=== PATIENT | female | born 1940 | race Caucasian/White ===

== ENCOUNTER → 2016-05-15 | Outpatient (CLI) | payer OTHER ==
[~2016-05-15] MED LIST: ACET-1256 PO; ADVIN25/60 INH; ALPR-385 PO; ANT125 PO; ANT25 PO; ASPEC81 PO; ATRINS INH; CALCTAB7 PO; CHOL2000 PO; CLC100 PO; DILT180C70 PO; DLC5 PO; DSY50 PO; IPRA1AER2 INH; KFL500 PO; LSX20 PO; LVQ500 PO; LXP10 PO; MAGN400T6 PO; MGCUDL400 PO; MULTTAB58 PO; OMEP20CA9 PO; ONDA4TAB9 PO; POTA20TA13 PO; PRD10 PO; PRD20 PO; TPRSR/25 PO; XNX5 PO; ZNTT/150 PO
[2016-05-15 12:45] LABS: ALT/SGPT 14 U/L (12-78); AST/SGOT 17 U/L (15-37); BLOOD UREA NITROGEN 6 mg/dl (7-18); BUN/CREATININE RATIO 6.8 (10-20); CALCIUM 8.6 mg/dl (8.5-10.1); CARBON DIOXIDE 30 mmol/L (21-32); CHLORIDE 98 mmol/L (98-107); CREATININE 0.82 mg/dl (0.60-1.20); GLUCOSE 86 mg/dl (70-99); POTASSIUM 4.5 mmol/L (3.5-5.1); SODIUM 135 mmol/L (136-145)
[2016-05-15 12:47] LABS: ALB/GLOB RATIO 1.1 (0.9-2); ALKALINE PHOSPHATASE 84 U/L (45-117)
== END | disposition home or self-care (01) ==
LOC: C.LABPVFM 09:59
PROVIDERS: ATTEND Nurse Practitioner
DX: M81.0 Age-related osteoporosis without current pathological fracture (principal); E55.9 Vitamin D deficiency, unspecified; E87.6 Hypokalemia

== ENCOUNTER 2016-05-22 06:20 | Inpatient (IN) | payer OTHER ==
[2016-05-22] VITALS (8 sets, daily range): BP systolic 120–166; BP diastolic 68–95; PULSE 89–120; TEMP 36.4–37; O2SAT 91–100; Ht 160 cm; Wt 53.3 kg
[~2016-05-22] VITALS: Ht 160 cm; Wt 53.3 kg
[~2016-05-22 06:20] MED LIST changes: -ACET-1256 PO; -ANT25 PO; -ASPEC81 PO; -ATRINS INH; -CALCTAB7 PO; -CHOL2000 PO; -CLC100 PO; -DLC5 PO; -DSY50 PO; -LVQ500 PO; -MGCUDL400 PO; -PRD10 PO; -PRD20 PO; -XNX5 PO; -ZNTT/150 PO
--- NOTE | 2016-05-22 06:37 | EMERGENCY ROOM VISIT NOTE ---
History Report prepared by Mary Ellen: Kar Fitzgerald Under the Supervision of: Dr. Umang Rudolph M.D. First contact with patient: 06:22 Chief Complaint: RESPIRATORY DISTRESS Stated Complaint: RESPIRATORY DIFFICULTY History of Present Illness The patient is a 75 year old female who presents to the Emergency Room via EMS with complaints of severe and persistent difficulty breathing starting yesterday. She has been sick for the past few days. As per EMS, she was hypoxic in the 80s on scene. The patient received Albuterol and CPAP with some relief. She reports a loss of appetite and a reduced fluid intake. She denies any fevers , chest pain, lower extremity swelling, or any other complaints. She denies any history of heart disease. Her has had flu-like symptoms for the past few days. She did not receive a flu shot this year. HPI is limited secondary to dyspnea. Source of History: patient, EMS History Limited By: dyspnea Onset: this morning Position: other (global) Symptom Intensity: severe Quality: other (difficulty breathing) Timing: other (persistent) Modifying Factors (Relieving): other (Albuterol and CPAP with some relief) Associated Symptoms: No chest pain, No fevers Review of Systems See HPI for pertinent positives & negatives. A total of 10 systems reviewed and were otherwise negative. Past Medical & Surgical Medical Problems: (1) Age related osteoporosis (2) Anemia (3) Anxiety disorder (4) CHF (congestive heart failure) (5) Compression fracture (6) Depression (7) Fall (8) Fall at home (9) Gastric ulcer (10) Glaucoma (11) Hypertension (12) Hypertension Nos (13) Osteoporosis (14) Pancreatitis (15) Parkinsonism (16) Peptic ulcer disease (17) Respiratory failure (18) Right hip pain (19) Slurred speech (20) Stomach ulcer Surgical Problems: (1) Hx of appendectomy (2) S/P colonoscopy (3) S/P endoscopy Family History Cancer Social History Smoking Status: Current Every Day Smoker Alcohol Use: none Drug Use: none Marital Status: Housing Status: lives with significant other Occupation Status: retired Current/Historical Medications Scheduled Cholecalciferol (Vitamin D3), 1 CAP PO DAILY Diltiazem Hcl (Diltiazem Hcl), 180 MG PO DAILY Escitalopram Oxalate (Escitalopram Oxalate), 10 MG PO DAILY Fluticasone Prop/Salmeterol (Advair Diskus 250/50 60 Dose), 1 PUFF INH BID Ipratropium-Albuterol (Combivent Respimat), 1 PUFF INH Q6H Magnesium Oxide (Mag-Ox), 400 MG PO BID Metoprolol Succinate (Metoprolol Succinate ER), 25 MG PO DAILY Multiple Vitamin (Multivitamin), 1 TAB PO QAM Omeprazole (Prilosec), 20 MG PO DAILY Potassium Chloride Microencaps (Potassium Chloride Er), 20 MEQ PO DAILY Ranitidine (Zantac), 150 MG PO DAILY Scheduled PRN Acetaminophen (Tylenol), 500 MG PO Q4 PRN for Pain Alprazolam (Xanax), 1 MG PO Q8 PRN for Anxiety Allergies Coded Allergies: Oxycodone (Verified Adverse Reaction, Intermediate, NAUSEA, 12/10/15) Codeine (Verified Adverse Reaction, Mild, NAUSEA, 12/10/15) Physical Exam Vital Signs Date Time Temp Pulse Resp B/P Pulse Ox O2 Delivery O2 Flow Rate FiO2 05/22/16 08:03 97 20 142/82 98 BiPAP 05/22/16 07:15 89 05/22/16 07:04 120 97 30 05/22/16 07:00 93 22 150/89 97 BiPAP 05/22/16 06:30 BiPAP 30 05/22/16 06:30 BiPAP 30 05/22/16 06:28 103 05/22/16 06:20 36.6 101 25 169/96 99 Room Air 05/22/16 06:20 98 Room Air Physical Exam GENERAL: Patient is elderly, acutely ill appearing and in no acute distress. HEENT: No acute trauma, normocephalic atraumatic, mucous membranes dry, no nasal congestion, no scleral icterus. NECK: No stridor, no adenopathy, no meningismus, trachea is midline. LUNGS: Dyspneic. Diffuse crackles and rhonchi in all lung reid. Mildly tachypneic. No wheezing. Using accessory muscles to breathe. HEART: Regular rate and rhythm. No murmurs, rubs, gallops appreciated. ABDOMEN: Soft, nontender, bowel sounds positive, no masses appreciated, no peritonitis. BACK: No midline tenderness, no CVA tenderness EXTREMITIES: Normal motion all extremities, no cyanosis, no edema. NEUROLOGIC: Alert and oriented, no acute motor or sensory deficits, no focal weakness, cranial nerves grossly intact. SKIN: Cracked, dry skin. No rash, no jaundice, no diaphoresis. Medical Decision & Procedures Laboratory Results 05/22/16 07:25 Red Blood Count 4.01, Mean Corpuscular Volume 83.0, Mean Corpuscular Hemoglobin 25.2, Mean Corpuscular Hemoglobin Concent 30.3, Mean Platelet Volume 9.4, Neutrophils (%) (Auto) 79.9, Lymphocytes (%) (Auto) 10.1, Monocytes (%) (Auto) 9.5, Eosinophils (%) (Auto) 0.0, Basophils (%) (Auto) 0.2, Neutrophils # (Auto) 12.76, Lymphocytes # (Auto) 1.61, Monocytes # (Auto) 1.52, Eosinophils # (Auto) 0.00, Basophils # (Auto) 0.03 05/22/16 07:15 Test 05/22/16 06:45 05/22/16 06:55 05/22/16 07:15 05/22/16 07:25 Influenza Type A Antigen Neg for Influ A (NEG) Influenza Type B Antigen Neg for Influ B (NEG) Arterial Blood pH 7.42 (7.35-7.45) Arterial Blood Partial Pressure CO2 48 mmHg (35-46) Arterial Blood Partial Pressure O2 165 mm/Hg (80-95) Arterial Blood HCO3 30 mmol/L (19-24) Arterial Blood Oxygen Saturation 99.1 % (90-95) Arterial Blood Base Excess 5.2 mEq/L (-9-1.8) Arterial Blood Gas Delivery 30% Lito Test POSITIVE (POS) Anion Gap 7.0 mmol/L (3-11) Est Creatinine Clear Calc Drug Dose 55.2 ml/min Estimated GFR () 92.5 Estimated GFR (Non- 79.8 BUN/Creatinine Ratio 10.9 (10-20) Calcium Level 9.0 mg/dl (8.5-10.1) Total Creatine Kinase 52 U/L (26-192) Creatine Kinase MB 1.4 ng/ml (0.5-3.6) Creatine Kinase MB Ratio 2.7 (0-3.0) Troponin I < 0.015 ng/ml (0-0.045) Pro-B-Type Natriuretic Peptide 1006 pg/ml (0-900) White Blood Count 15.96 K/uL (4.8-10.8) Red Blood Count 4.01 M/uL (4.2-5.4) Hemoglobin 10.1 g/dL (12.0-16.0) Hematocrit 33.3 % (37-47) Mean Corpuscular Volume 83.0 fL (80-100) Mean Corpuscular Hemoglobin 25.2 pg (25-34) Mean Corpuscular Hemoglobin Concent 30.3 g/dl (32-36) Platelet Count 261 K/uL (130-400) Mean Platelet Volume 9.4 fL (7.4-10.4) Neutrophils (%) (Auto) 79.9 % Lymphocytes (%) (Auto) 10.1 % Monocytes (%) (Auto) 9.5 % Eosinophils (%) (Auto) 0.0 % Basophils (%) (Auto) 0.2 % Neutrophils # (Auto) 12.76 K/uL (1.4-6.5) Lymphocytes # (Auto) 1.61 K/uL (1.2-3.4) Monocytes # (Auto) 1.52 K/uL (0.11-0.59) Eosinophils # (Auto) 0.00 K/uL (0-0.5) Basophils # (Auto) 0.03 K/uL (0-0.2) RDW Standard Deviation 47.4 fL (36.4-46.3) RDW Coefficient of Variation 15.6 % (11.5-14.5) Immature Granulocyte % (Auto) 0.3 % Immature Granulocyte # (Auto) 0.04 K/uL (0.00-0.02) Test 05/22/16 07:31 Bedside Lactic Acid Venous 0.74 mmol/L (0.90-1.70) Laboratory results as reviewed by me. Medications Administered Medications (Trade) Dose Ordered Sig/Laurel Route Start Time Stop Time Status Last Admin Dose Admin Sodium Chloride 1,000 ml @ 75 mls/hr [id number] STAT IV 05/22/16 07:05 05/22/16 20:24 05/22/16 07:09 75 MLS/HR Methylprednisolone Sodium Succinate/ Syringe (Solu-Medrol IV/ Syringe) 1.28 ml @ 1.5 mls/min TODAY@0737 IV 05/22/16 07:37 05/22/16 09:00 05/22/16 08:03 1.5 MLS/MIN Levofloxacin (Levaquin / D5W) 500 mg NOW ONCE IV 05/22/16 08:00 05/22/16 08:01 DC 05/22/16 07:58 500 MG ED Course 0622: The patient was evaluated in room B02. A complete history and physical exam was performed. 0632: I reevaluated the patient who is breathing much better on BiPAP. 0730: Upon reevaluation, the patient is resting comfortably. Discussed results and treatment plan with the patient. She verbalized understanding and agreement with the treatment plan. [facility] The patient will be evaluated for further management. Medical Decision Differential: Infectious, Reactive Airway Disease, Pneumonia, Pneumothorax, COPD , CHF, ACS, Pulmonary Embolism, MSK, GI, Dissection, amongst other etiologies entertained. 75 yr old female with history of emphysema arrives with worsening shortness of breath, weakness and lack of appetite over the last few days following recent illness of her . She is clinically dehydrated with diffuse rhonchi and crackles. No wheezing here but had neb en route prolonged. With emphysema history given solumedrol. No clear infectious on CXR and normal lactic acid and no fever, however she is a bit elevated WBC which I suspect is either infectious or possibly just dehydration. Will add on levaquin however given chronic lung disease. She is very dyspneic on NC but when switched to bipap vast improvement in symptoms. After hour on bipap ABG is looking quite good. She is far more comfortable and even able to fall asleep while on bipap (easily awakens). She is not septic appearing and labs look good other than wbc elevation. BNP is elevated but actually improved from before and no evidence overload on exam. Consults Time Called: [phone] Consulting Physician: Dr Montes Returned Call: [phone] I consulted with [facility]. Impression Primary Impression: Shortness of breath Additional Impression: Respiratory failure Critical Care I have personally spent greater than 35 minutes of critical care time in the direct management of this patient. This includes bedside care, interpretation of diagnostic studies, and testing, discussion with consultants, patient, and family members, and other required patient management activities. This 35 minutes is in excess of all separately billable procedures. Scribe Attestation The scribe's documentation has been prepared under my direction and personally reviewed by me in its entirety. I confirm that the note above accurately reflects all work, treatment, procedures, and medical decision making performed by me. Departure Information Referrals Pinky Aiken C.R.N.P (PCP) Patient Instructions Asthma - [facility], COPD - [facility], Croup - [facility], [facility] Problem Qualifiers Additional Impression: Respiratory failure Chronicity: acute Respiratory failure complication: hypoxia and hypercapnia Qualified Codes: J96.01 - Acute respiratory failure with hypoxia; J96.02 - Acute respiratory failure with hypercapnia
[2016-05-22] MEDS ORDERED: CHOL2000 PO (06:51)
[2016-05-22] MEDS ORDERED: ZNTT/150 PO (06:51)
[2016-05-22] MEDS ORDERED: ACET-1256 PO (06:51)
[2016-05-22] MEDS ORDERED: SODIUM CHLORIDE 0.9% 1000ML 1,000 ML IV STA (07:05)
--- NOTE | 2016-05-22 07:07 | DIAGNOSTIC IMAGING REPORT ---
SINGLE VIEW CHEST CLINICAL HISTORY: Atypical chest pain. FINDINGS: An AP, portable, upright chest radiograph is compared to study dated 12/10/2015 and correlated with chest CT dated 03/16/2015. The examination is significantly degraded by portable technique and patient rotation. The cardiomediastinal silhouette is unremarkable. There is atherosclerotic calcification of the thoracic aorta. There is advanced emphysema. Chronic interstitial thickening and nodularity as well as biapical scarring are similar to previous. No superimposed airspace consolidation or large pleural effusion is identified. No pneumothorax is seen. The skeletal structures are osteopenic. The bony thorax is grossly intact. IMPRESSION: Advanced emphysema with no acute cardiopulmonary abnormality. Electronically signed by: Dick Vargas M.D. 05/22/2016 7:06 AM Dictated Date/Time: 05/22/2016 7:05 AM
[2016-05-22 07:17] LABS: ARTERIAL BLD GAS O2 SATURATION 99.1 % (90-95); ARTERIAL BLOOD GAS BASE EXCESS 5.2 mEq/L (-9-1.8); ARTERIAL BLOOD GAS HCO3 30 mmol/L (19-24); ARTERIAL BLOOD GAS PO2 165 mm/Hg (80-95); ARTERIAL BLOOD GAS pH 7.42 (7.35-7.45)
[2016-05-22 07:18] LABS: ALLEN TEST POSITIVE (POS); O2 ADMINISTRATION 30%
[2016-05-22] MEDS ORDERED: METHYLPREDNISOLONE 125 MG VIAL IV STA (07:37)
[2016-05-22] MEDS ORDERED: METHYLPREDNISOLONE 80 MG in SYRINGE 0 ML IV SCH (07:37)
[2016-05-22 07:55] LABS: BLOOD UREA NITROGEN 8 mg/dl (7-18); BUN/CREATININE RATIO 10.9 (10-20); CARBON DIOXIDE 28 mmol/L (21-32); CHLORIDE 98 mmol/L (98-107); CREATININE 0.74 mg/dl (0.60-1.20); GLUCOSE 109 mg/dl (70-99); POTASSIUM 3.9 mmol/L (3.5-5.1); SODIUM 133 mmol/L (136-145)
[2016-05-22 08:00] LABS: CKMB/CK RATIO 2.7 (0-3.0)
[2016-05-22] MEDS ORDERED: LEVAQUIN 500MG / 100ML D5W IV ONE (08:00)
[2016-05-22 08:03] LABS: BASO % 0.2 %; BASO ABS # 0.03 K/uL (0-0.2); COMPLETE YES; HEMATOCRIT 33.3 % (37-47); IG% 0.3 %; LYMPH % 10.1 %; LYMPH ABS # 1.61 K/uL (1.2-3.4); MEAN CORPUSCULAR HEMOGLOBIN 25.2 pg (25-34); MEAN CORPUSCULAR HGB CONC 30.3 g/dl (32-36); MEAN PLATELET VOLUME 9.4 fL (7.4-10.4); MONO % 9.5 %; NEUT % 79.9 %; PLATELET COUNT 261 K/uL (130-400); RED BLOOD COUNT 4.01 M/uL (4.2-5.4); WHITE BLOOD COUNT 15.96 K/uL (4.8-10.8)
[2016-05-22] MEDS ORDERED: ALUMINUM/MAGNESIUM/SIMETH (MAALOX MAX) 30 ML UDC PO PRN (08:45)
[2016-05-22] MEDS ORDERED: ACETAMINOPHEN 325 MG TAB PO PRN (08:45)
[2016-05-22] MEDS ORDERED: ONDANSETRON INJ 2 MG/ML 2 ML VIAL IV PRN (08:45)
[2016-05-22] MEDS ORDERED: MAGNESIUM HYDROXIDE SUSP 30 ML UDC PO PRN (08:45)
[2016-05-22] MEDS ORDERED: POLYETHYLENE (MIRALAX) 17 GM PACK PO PRN (08:45)
[2016-05-22] MEDS ORDERED: ALPRAZOLAM 0.5 MG TAB PO PRN (08:45)
[2016-05-22 08:52] LABS: INFLUENZA A PCR Neg for Influ A (NEG); INFLUENZA B PCR Neg for Influ B (NEG)
--- NOTE | 2016-05-22 09:32 | History and Physical ---
History & Physical Date & Time of Service: May 22, 2016 at 09:04 Chief Complaint: Respiratory Difficulty Primary Care Physician: Pinky Aiken C.R.N.P History of Present Illness Source: patient, spouse ( at bedside), clinic records, hospital records This is a 75 y/o female with a history of COPD, HTN, anxiety and depression who presented to the ED on 05/22 with worsening shortness of breath and hypoxia. The patient states that she has been sick over the last week or two with a "head cold". She has been having a productive cough with thick, white sputum and some shortness of breath and wheezing that is worse at night. Per her , her chest has been "rattling" at night. She also complains of weakness, fatigue , and a decrease in appetite, with very little PO intake over the last few days. She reports some nausea yesterday without vomiting that resolved on its own. Yesterday, her shortness of breath started to become more severe throughout the day as well. This morning prior to arrival, the patient's shortness of breath continued to worsen. Upon arrival of EMS, the patient's O2 saturation was in the 80s on room air. The patient did use supplemental oxygen at home previously, but has not used any at all for the last 3 months. The patient was given albuterol and put on CPAP while en route to the ED, which did provide some relief. The patient denies fevers, chills, sweats, chest pain, palpitations, claudication, vomiting, abdominal pain, dysuria, hematuria, urinary retention, paralysis, numbness and tingling. Past Medical/Surgical History Medical Problems: COPD Age related osteoporosis Status: Chronic Anemia Status: Chronic Anxiety disorder Status: Chronic Compression fracture Status: Chronic Depression Status: Chronic Fall Status: Resolved Hypertension Status: Chronic Pancreatitis Status: Chronic Peptic ulcer disease Status: Chronic Respiratory failure Status: Chronic Right hip pain Status: Resolved Stomach ulcer Status: Chronic Surgical Problems: (1) Hx of appendectomy Status: Resolved (2) S/P colonoscopy Status: Resolved (3) S/P endoscopy Status: Resolved Family History Cancer (unknown type) MOTHER Heart disease FATHER Social History Smoking Status: Current Some Day Smoker (occasional cigarettes) Smokeless Tobacco Use: No Alcohol Use: none Drug Use: none Marital Status: Housing status: lives with significant other Occupational Status: retired Immunizations History of Influenza Vaccine: No History of Tetanus Vaccine?: Yes Tetanus Immunization Date: Oct 26, 2006 History of Pneumococcal: No History of Hepatitis B Vaccine: No Multi-Drug Resistant Organisms History of MDRO: No Allergies Coded Allergies: Oxycodone (Verified Adverse Reaction, Intermediate, NAUSEA, 12/10/15) Codeine (Verified Adverse Reaction, Mild, NAUSEA, 12/10/15) Home Medications Scheduled Cholecalciferol (Vitamin D3), 1 CAP PO DAILY Escitalopram Oxalate (Escitalopram Oxalate), 10 MG PO DAILY Fluticasone Prop/Salmeterol (Advair Diskus 250/50 60 Dose), 1 PUFF INH BID Ipratropium-Albuterol (Combivent Respimat), 1 PUFF INH Q6H Magnesium Oxide (Mag-Ox), 400 MG PO BID Metoprolol Succinate (Metoprolol Succinate ER), 25 MG PO DAILY Multiple Vitamin (Multivitamin), 1 TAB PO QAM Omeprazole (Prilosec), 20 MG PO DAILY Potassium Chloride Microencaps (Potassium Chloride Er), 20 MEQ PO DAILY Ranitidine (Zantac), 150 MG PO DAILY Scheduled PRN Acetaminophen (Tylenol), 500 MG PO Q4 PRN for Pain Alprazolam (Xanax), 1 MG PO Q8 PRN for Anxiety Review of Systems Constitutional: + fatigue, + weakness, No chills, No fever, No sweats Eyes: No diplopia, No eye pain, No worsening of vision ENT: No hearing loss, No sore throat, No trouble swallowing Respiratory: + cough, + dyspnea on exertion, + shortness of breath, + sputum ( thick white), + wheezing Cardiovascular: No PND, No chest pain, No claudication, No orthopnea, No palpitations Abdomen: + nausea, No pain, No vomiting Musculoskeletal: No calf pain, No joint pain, No muscle pain Genitourinary - Female: No dysuria, No hematuria, No urinary retention Neurologic: No numbness/tingling, No paralysis, No weakness Integumentary: No color change, No itch, No rash Physical Exam Vital Signs Date Time Temp Pulse Resp B/P Pulse Ox O2 Delivery O2 Flow Rate FiO2 05/22/16 09:00 92 20 143/72 98 BiPAP 05/22/16 08:04 98 BiPAP 30 05/22/16 08:03 97 20 142/82 98 BiPAP 05/22/16 07:15 89 05/22/16 07:04 120 97 30 05/22/16 07:00 93 22 150/89 97 BiPAP 05/22/16 06:30 BiPAP 30 05/22/16 06:30 BiPAP 30 05/22/16 06:28 103 05/22/16 06:20 36.6 101 25 169/96 99 Room Air 05/22/16 06:20 98 Room Air General Appearance: WD/WN, + mild distress (dyspneic ) Head: normocephalic, atraumatic Eyes: normal inspection, PERRL, EOMI ENT: normal ENT inspection, hearing grossly normal, + pertinent finding (on BIPAP, pharynx not examined) Neck: supple, no JVD, trachea midline Respiratory/Chest: + respiratory distress (mild, pt denies discomfort), + accessory muscle use, + rhonchi, + wheezing Cardiovascular: regular rate, rhythm, no gallop, no murmur, + tachycardia Abdomen/GI: normal bowel sounds, non tender, soft Extremities/Musculoskelatal: normal inspection, no calf tenderness, no pedal edema Neurologic/Psych: alert, normal mood/affect, oriented x 3 Skin: normal color, warm/dry, no rash Diagnostics Laboratory Results Results Past 24 Hours Test 05/22/16 06:45 05/22/16 06:55 05/22/16 07:15 05/22/16 07:25 Range/Units Influenza Type A (RT-PCR) Neg for Influ A NEG Influenza Type A Antigen Neg for Influ A NEG Influenza Type B Antigen Neg for Influ B NEG Influenza Type B (RT-PCR) Neg for Influ B NEG Arterial Blood pH 7.42 7.35-7.45 Arterial Blood Partial Pressure CO2 48 35-46 mmHg Arterial Blood Partial Pressure O2 165 80-95 mm/Hg Arterial Blood HCO3 30 19-24 mmol/L Arterial Blood Oxygen Saturation 99.1 90-95 % Arterial Blood Base Excess 5.2 -9-1.8 mEq/L Arterial Blood Gas Delivery 30% Lito Test POSITIVE POS Sodium Level 133 136-145 mmol/L Potassium Level 3.9 3.5-5.1 mmol/L Chloride Level 98 98-107 mmol/L Carbon Dioxide Level 28 21-32 mmol/L Anion Gap 7.0 3-11 mmol/L Blood Urea Nitrogen 8 7-18 mg/dl Creatinine 0.74 0.60-1.20 mg/dl Est Creatinine Clear Calc Drug Dose 55.2 ml/min Estimated GFR () 92.5 Estimated GFR (Non- 79.8 BUN/Creatinine Ratio 10.9 10-20 Random Glucose 109 70-99 mg/dl Calcium Level 9.0 8.5-10.1 mg/dl Total Creatine Kinase 52 26-192 U/L Creatine Kinase MB 1.4 0.5-3.6 ng/ml Creatine Kinase MB Ratio 2.7 0-3.0 Troponin I < 0.015 0-0.045 ng/ml Pro-B-Type Natriuretic Peptide 1006 0-900 pg/ml White Blood Count 15.96 4.8-10.8 K/uL Red Blood Count 4.01 4.2-5.4 M/uL Hemoglobin 10.1 12.0-16.0 g/dL Hematocrit 33.3 37-47 % Mean Corpuscular Volume 83.0 80-100 fL Mean Corpuscular Hemoglobin 25.2 25-34 pg Mean Corpuscular Hemoglobin Concent 30.3 32-36 g/dl Platelet Count 261 130-400 K/uL Mean Platelet Volume 9.4 7.4-10.4 fL Neutrophils (%) (Auto) 79.9 % Lymphocytes (%) (Auto) 10.1 % Monocytes (%) (Auto) 9.5 % Eosinophils (%) (Auto) 0.0 % Basophils (%) (Auto) 0.2 % Neutrophils # (Auto) 12.76 1.4-6.5 K/uL Lymphocytes # (Auto) 1.61 1.2-3.4 K/uL Monocytes # (Auto) 1.52 0.11-0.59 K/uL Eosinophils # (Auto) 0.00 0-0.5 K/uL Basophils # (Auto) 0.03 0-0.2 K/uL RDW Standard Deviation 47.4 36.4-46.3 fL RDW Coefficient of Variation 15.6 11.5-14.5 % Immature Granulocyte % (Auto) 0.3 % Immature Granulocyte # (Auto) 0.04 0.00-0.02 K/uL Test 05/22/16 07:31 Range/Units Bedside Lactic Acid Venous 0.74 0.90-1.70 mmol/L Microbiology Results 05/22/16 Blood Culture, Received Pending 05/22/16 Blood Culture, Received Pending Diagnostic Radiology Reviewed the following studies and agree with interpretation as follows: Patient Name: FACUNDO WILBURN Unit Number: [id number] Dictated: 05/22/16704 Transcribed: 05/22/16704 EV Printed Date/Time: [~ rep prt dt]/[~ rep prt tm] [~ rep ct labl] - [~ rep ct ivnm] [facility] [place] [place] [address] Dictated: 05/22/16704 Transcribed: 05/22/16704 EV Printed Date/Time: [~ rep prt dt]/[~ rep prt tm] [~ rep ct labl] - [~ rep ct ivnm] Patient: FACUNDO WILBURN Address1: [address] [place] [address] Rec: [id number] Address2: Acct ID: [id number] [facility] Zip: [place] [address] Date: 1940 Sex: F Room/Bed: Ref Phy: Pinky Aiken C.R.NKaylinP SC: REBECCA Att Phy: Report #: [id number] Naima Phy: Pinky Aiken C.R.NJaguar Test: CXR1P Admit Phy: Plastic Press Molder: [id number] Interpreting Phy: Dick Vargas M.D. Diagnosis: RESPIRATORY DIFFICULTY Ordering Phy: Umang Rudolph M.D. Service Date: 05/22/16 Admit Date: 05/22/16 MNE: [id number] CONF: DICTATED BY: Dick Vargas M.D.]] CC: Pinky Aiken C.R.N.P McKinley, Daniel F., M.D. Endcc: [~ rep ct add3]] SINGLE VIEW CHEST CLINICAL HISTORY: Atypical chest pain. FINDINGS: An AP, portable, upright chest radiograph is compared to study dated 12/10/2015 and correlated with chest CT dated 03/16/2015. The examination is significantly degraded by portable technique and patient rotation. The cardiomediastinal silhouette is unremarkable. There is atherosclerotic calcification of the thoracic aorta. There is advanced emphysema. Chronic interstitial thickening and nodularity as well as biapical scarring are similar to previous. No superimposed airspace consolidation or large pleural effusion is identified. No pneumothorax is seen. The skeletal structures are osteopenic. The bony thorax is grossly intact. IMPRESSION: Advanced emphysema with no acute cardiopulmonary abnormality. Electronically signed by: Dick Vargas M.D. 05/22/2016 7:06 AM Dictated Date/Time: 05/22/2016 7:05 AM The status of this report is Signed. Draft = Not yet reviewed or approved by Radiologist. Signed = Reviewed and approved by Radiologist. <AttendingPhy></AttendingPhy> <FamilyPhy>Pinky Aiken C.RKaylinN.P</FamilyPhy> < PrimaryPhy>Pinky Aiken C.R.N.P</PrimaryPhy> <UnitNumber>[id number]</ UnitNumber> <VisitNumber>[id number]</VisitNumber> <PatientName>FACUNDO WILBURN Marco </PatientName> <DateOfBirth>1940</DateOfBirth> <Location>C.EDB</Location> <ServiceDate>05/22/16</ServiceDate> <MNE>ESINDI</MNE> <OrderingPhy>Umang Rudolph M.D.</OrderingPhy> <OrderingPhyMNE>f rep ord dr miller</OrderingPhyMNE> < DictatingPhyMNE>f rep dict dr miller</DictatingPhyMNE> <CCListMNE>f rep ct paul</ CCListMNE> <AdmittingPhyMNE>f pt admit dr miller</AdmittingPhyMNE> <AttendingPhyMNE >f pt attend dr miller</AttendingPhyMNE> <ConsultingPhyMNE>f pt consult dr miller</ConsultingPhyMNE> <FamilyPhyMNE>f pt fam dr miller</FamilyPhyMNE> <OtherPhyMNE>f pt other dr miller</OtherPhyMNE> < PrimaryPhyMNE>f pt prim care dr miller</PrimaryPhyMNE> <ReferringPhyMNE>f pt referring dr miller</ReferringPhyMNE> EKG Reviewed EKG and agree with interpretation as follows: 103 bpm, sinus tachycardia Impression Assessment and Plan 75 y/o female with a history of COPD, HTN, anxiety and depression who presented to the ED on 05/22 with worsening shortness of breath and hypoxia. Recent illness with productive cough, SOB, and wheezing. No supplemental oxygen at home currently. O2 sat in 80s on room air at home. Pt tachycardic and tachypneic upon arrival. CXR shows severe emphysema but no acute disease. EKG sinus tach. ABG shows pH of 7.42, pCO2 of 48, pO2 of 165, HCO3 of 30. WBC elevated at 15.96. Received albuterol and CPAP in ambulance and Solu-Medrol 80 mg IV x 1 in ED. Acute on chronic respiratory failure secondary to COPD exacerbation -Admit to telemetry -Continue BIPAP -Solu-Medrol 60 mg IV q8h -Levaquin 500 mg IV q24h for possible acute bacterial bronchitis vs atypical pneumonia -Gentle IV hydration with NSS at 75 cc/hr. Sodium also slightly low at 133 upon admission -Duonebs QIDR and q2h prn SOB/wheezing HTN--stable -Continue metoprolol succinate 25 mg PO qam Anxiety and depression -Continue alprazolam 1 mg PO q8h prn anxiety and escitalopram 10 mg PO qd GI prophylaxis -Maalox Max 15 mL PO q4h prn dyspepsia -Milk of magnesia 30 mL PO q6h prn constipation -Miralax 17 gm PO qd prn constipation -Zofran 4 mg IV q6h prn nausea DVT prophylaxis -Enoxaparin 40 mg SC q24h -CONCEPCION linn and SCDs Code Status -Level V, DO NOT RESUSCITATE I agree with PA assessment and plan and have personally seen and examined pt myself. Pt presents with sob likely due to COPD exacerbation. 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 Y/N: Yes Risk Level: Moderate Given or contraindicated: Enoxaparin (Lovenox)SQ, Kumar Braden, SCD's
[2016-05-22 10:43] LABS: INR 1.1 (0.9-1.1); PARTIAL THROMBOPLASTIN RATIO 1.4; PROTHROMBIN TIME (PATIENT) 11.6 SECONDS (9.0-12.0)
[2016-05-22] MEDS: ALBUT/IPRATROP 3MG/0.5MG NEB 3 ML VIAL INH SCH ×2 (11:20→19:52)
[2016-05-22] MEDS: SODIUM CHLORIDE 0.9% 1000ML 1,000 ML IV SCH (12:22)
[2016-05-22] MEDS: ENOXAPARIN 40 MG/0.4 ML SYR SC SCH (13:19)
[2016-05-22] MEDS: METHYLPREDNISOLONE IV 60 MG in SYRINGE 0 ML IV SCH ×2 (13:20→19:50)
[2016-05-22] MEDS: FLUTICASONE/SALMETEROL 250/50 (ADVAIR) 14 PUFF/1 INHALER INH SCH (19:50)
[2016-05-23] VITALS (12 sets, daily range): BP systolic 111–154; BP diastolic 64–88; PULSE 81–118; TEMP 36.6–37; O2SAT 92–100
[2016-05-23] MEDS: SODIUM CHLORIDE 0.9% 1000ML 1,000 ML IV SCH (02:10)
[2016-05-23] MEDS: METHYLPREDNISOLONE IV 60 MG in SYRINGE 0 ML IV SCH ×2 (05:51→11:54)
[2016-05-23 06:06] LABS: COMPLETE YES; HEMATOCRIT 30.7 % (37-47); IG% 0.1 %; LYMPH % 9.1 %; LYMPH ABS # 0.77 K/uL (1.2-3.4); MEAN CELL VOLUME 84.3 fL (80-100); MEAN CORPUSCULAR HGB CONC 29.6 g/dl (32-36); MEAN PLATELET VOLUME 9.6 fL (7.4-10.4); MONO % 2.9 %; NEUT % 87.9 %; PLATELET COUNT 246 K/uL (130-400); RED BLOOD COUNT 3.64 M/uL (4.2-5.4); WHITE BLOOD COUNT 8.42 K/uL (4.8-10.8)
[2016-05-23 06:45] LABS: BUN/CREATININE RATIO 22.5 (10-20); CALCIUM 8.8 mg/dl (8.5-10.1); CREATININE 0.71 mg/dl (0.60-1.20); POTASSIUM 4.8 mmol/L (3.5-5.1)
[2016-05-23] MEDS: ALBUT/IPRATROP 3MG/0.5MG NEB 3 ML VIAL INH SCH ×2 (07:24→11:01)
[2016-05-23] MEDS ORDERED: LEVOFLOXACIN / D5W 500 MG in PREMIXED IN D5W 100 ML IV SCH (08:00)
[2016-05-23] MEDS: MAGNESIUM OXIDE 400 MG TAB PO SCH ×2 (09:01→23:04)
[2016-05-23] MEDS: FLUTICASONE/SALMETEROL 250/50 (ADVAIR) 14 PUFF/1 INHALER INH SCH ×2 (09:01→20:48)
[2016-05-23] MEDS: RANITIDINE HCL 150 MG TAB PO SCH (09:01)
[2016-05-23] MEDS: METOPROLOL SUCC 25MG EXT REL TAB PO SCH (09:01)
[2016-05-23] MEDS: ESCITALOPRAM OXALATE 10 MG TAB PO SCH (09:01)
[2016-05-23] MEDS: POTASSIUM CHLORIDE 20 MEQ TABCR PO SCH (09:02)
[2016-05-23] MEDS: PANTOprazole SOD 40 MG TAB PO SCH (09:03)
[2016-05-23] MEDS: ENOXAPARIN 40 MG/0.4 ML SYR SC SCH (13:26)
--- NOTE | 2016-05-23 14:08 | Progress Note ---
Subjective Date of Service: May 23, 2016. Subjective Pt evaluation today including: conversation w/ patient, conversation w/ family , physical exam, lab review, review of studies, review of inpatient medication list Pain: no pain PO Intake: adequate Voiding: no voiding problems breathing slightly better today, patient would like to go home discussed that she is still requiring oxygen and still appears short of breath discussed plan to move to the floor, perform 2 step tomorrow no chest pain, minimal cough, no abdominal pain, no edema Problem List Medical Problems: (1) Anemia Status: Chronic (2) Cachexia Status: Acute (3) Confusion Status: Acute (4) Dehydration Status: Acute (5) Dehydration Status: Acute (6) Dehydration Status: Acute (7) Fall Status: Acute (8) Generalized weakness Status: Acute (9) Generalized weakness Status: Acute (10) Loss of appetite Status: Acute (11) Multiple fractures of ribs of left side Status: Acute (12) Pleural effusion Status: Acute (13) Respiratory failure Status: Chronic (14) Shortness of breath Status: Acute (15) Urinary tract infection Status: Acute Review of Systems Constitutional: + fatigue, + weakness Respiratory: + cough, + dyspnea at rest, + dyspnea on exertion, + shortness of breath, + wheezing, No sputum All Other Systems: Reviewed and Negative Medications Current Inpatient Medications Medications (Trade) Dose Ordered Sig/[place] Route Start Time Stop Time Status Last Admin Dose Admin Enoxaparin Sodium (Lovenox Inj) 40 mg DAILY@1400 SC 05/22/16 14:00 06/21/16 13:59 05/23/16 13:26 40 MG Acetaminophen (Tylenol Tab) 650 mg Q4H PRN PO 05/22/16 08:45 06/21/16 08:44 Al Hydrox/Mg Hydrox/Simethicone (Maalox Max Susp) 15 ml Q4H PRN PO 05/22/16 08:45 06/21/16 08:44 Magnesium Hydroxide (Milk Of Magnesia Susp) 30 ml Q12H PRN PO 05/22/16 08:45 06/21/16 08:44 Ondansetron HCl (Zofran Inj) 4 mg Q6H PRN IV 05/22/16 08:45 06/21/16 08:44 Polyethylene (Miralax Powder Packet) 17 gm DAILY PRN PO 05/22/16 08:45 06/21/16 08:44 Alprazolam (Xanax Tab) 1 mg Q8H PRN PO 05/22/16 08:45 06/21/16 08:44 Escitalopram Oxalate (Lexapro Tab) 10 mg DAILY PO 05/23/16 09:00 06/22/16 08:59 05/23/16 09:01 10 MG Salmeterol Xinafoate/ Fluticasone (Advair Diskus 250/50 Inh) 1 puff BID INH 05/22/16 21:00 06/21/16 20:59 05/23/16 09:01 1 PUFF Magnesium Oxide (Mag-Ox Tab) 400 mg BID PO 05/23/16 09:00 06/22/16 08:59 05/23/16 09:01 400 MG Metoprolol Succinate (Toprol Xl Tab) 25 mg DAILY PO 05/23/16 09:00 06/22/16 08:59 05/23/16 09:01 25 MG Potassium Chloride (Klor-Con Tab) 20 meq DAILY PO 05/23/16 09:00 06/22/16 08:59 05/23/16 09:02 20 MEQ Ranitidine HCl (zANTac TAB) 150 mg DAILY PO 05/23/16 09:00 06/22/16 08:59 05/23/16 09:01 150 MG Pantoprazole Sodium (Protonix Tab) 40 mg QAM PO 05/23/16 09:00 06/22/16 08:59 05/23/16 09:03 40 MG Albuterol/ Ipratropium (Duoneb) 3 ml QIDR INH 05/22/16 12:00 06/21/16 11:59 05/23/16 11:01 3 ML Prednisone (PredniSONE TAB) 40 mg QAM PO 05/24/16 08:00 06/23/16 08:59 Levofloxacin (Levaquin Tab) 500 mg DAILY@11 PO 05/24/16 11:00 05/29/16 10:59 Objective Vital Signs Date Time Temp Pulse Resp B/P Pulse Ox O2 Delivery O2 Flow Rate FiO2 05/23/16 13:33 37.0 118 21 92 1.0 05/23/16 12:00 Nasal Cannula 1.0 05/23/16 12:00 37.0 118 21 139/79 92 Nasal Cannula 1.0 2/8/17 11:01 89 20 97 Room Air 05/23/16 08:11 89 22 97 Nasal Cannula 2.0 05/23/16 08:00 36.8 105 16 134/78 95 Nasal Cannula 2.0 05/23/16 08:00 95 Nasal Cannula 2.0 05/23/16 04:00 100 Nasal Cannula 3.0 05/23/16 04:00 81 15 154/88 100 Nasal Cannula 3.0 05/23/16 00:00 36.6 90 19 111/64 93 Nasal Cannula 3.0 05/23/16 00:00 93 Nasal Cannula 3.0 05/22/16 20:00 Nasal Cannula 05/22/16 20:00 36.4 92 19 135/79 91 Nasal Cannula 3.0 05/22/16 19:54 89 22 97 Nasal Cannula 2.0 05/22/16 15:30 36.5 115 21 120/82 94 Nasal Cannula 2.0 05/22/16 15:30 Nasal Cannula 2.0 Physical Exam General Appearance: no apparent distress, + thin Eyes: normal inspection, EOMI, sclerae normal ENT: normal ENT inspection, hearing grossly normal, pharynx normal Neck: supple, no adenopathy, no JVD, trachea midline Respiratory/Chest: chest non-tender, no respiratory distress, no accessory muscle use, + wheezing (faint end exhalation) Cardiovascular: no edema, no gallop, no JVD, no murmur, + tachycardia Abdomen: normal bowel sounds, non tender, soft, no organomegaly Extremities: normal range of motion, non-tender, normal inspection, no pedal edema, no calf tenderness, pelvis stable 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: 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, no motor/sensory deficits, alert, normal mood/affect, oriented x 3 Skin: normal color, warm/dry, no rash Lymphatic: no adenopathy Laboratory Results Last 24 Hours Test 05/23/16 05:34 05/23/16 05:37 Sodium Level 139 mmol/L Potassium Level 4.8 mmol/L Chloride Level 103 mmol/L Carbon Dioxide Level 29 mmol/L Anion Gap 7.0 mmol/L Blood Urea Nitrogen 16 mg/dl Creatinine 0.71 mg/dl Est Creatinine Clear Calc Drug Dose 57.5 ml/min Estimated GFR () 97.3 Estimated GFR (Non- 83.9 BUN/Creatinine Ratio 22.5 Random Glucose 149 mg/dl Calcium Level 8.8 mg/dl White Blood Count 8.42 K/uL Red Blood Count 3.64 M/uL Hemoglobin 9.1 g/dL Hematocrit 30.7 % Mean Corpuscular Volume 84.3 fL Mean Corpuscular Hemoglobin 25.0 pg Mean Corpuscular Hemoglobin Concent 29.6 g/dl Platelet Count 246 K/uL Mean Platelet Volume 9.6 fL Neutrophils (%) (Auto) 87.9 % Lymphocytes (%) (Auto) 9.1 % Monocytes (%) (Auto) 2.9 % Eosinophils (%) (Auto) 0.0 % Basophils (%) (Auto) 0.0 % Neutrophils # (Auto) 7.40 K/uL Lymphocytes # (Auto) 0.77 K/uL Monocytes # (Auto) 0.24 K/uL Eosinophils # (Auto) 0.00 K/uL Basophils # (Auto) 0.00 K/uL RDW Standard Deviation 48.1 fL RDW Coefficient of Variation 15.6 % Immature Granulocyte % (Auto) 0.1 % Immature Granulocyte # (Auto) 0.01 K/uL Assessment and Plan 75 y/o female with a history of COPD, HTN, anxiety and depression who presented to the ED on 05/22 with worsening shortness of breath and hypoxia. Recent illness with productive cough, SOB, and wheezing. No supplemental oxygen at home currently. O2 sat in 80s on room air at home. Pt tachycardic and tachypneic upon arrival. CXR shows severe emphysema but no acute disease. EKG sinus tach. ABG shows pH of 7.42, pCO2 of 48, pO2 of 165, HCO3 of 30. WBC elevated at 15.96. Received albuterol and CPAP in ambulance and Solu-Medrol 80 mg IV x 1 in ED. Acute on chronic respiratory failure secondary to COPD exacerbation breathing better today but still dyspnea at rest, less coughing, less wheezing transition to Prednisone today and make Levaquin 500mg PO daily change albuterol to levalbuterol due to continuous tachycardia, scheduled q6 still requiring supplemental oxygen despite numerous attempts to wean likely to early, will perform 2 step tomorrow HTN--stable -Continue metoprolol succinate 25 mg PO qam Anxiety and depression -Continue alprazolam 1 mg PO q8h prn anxiety and escitalopram 10 mg PO qd GI prophylaxis -Maalox Max 15 mL PO q4h prn dyspepsia -Milk of magnesia 30 mL PO q6h prn constipation -Miralax 17 gm PO qd prn constipation -Zofran 4 mg IV q6h prn nausea DVT prophylaxis -Enoxaparin 40 mg SC q24h -CONCEPCION linn and SCDs Code Status -Level V, DO NOT RESUSCITATE Plan: transfer to medical floor today, hopeful for discharge to home tomorrow, get 2 step and therapy evaluations
[2016-05-23] MEDS ORDERED: LEVALBUTEROL/IPRATROPIUM NEB INH SCH (15:00)
[2016-05-23] MEDS: IPRATROPIUM BROMIDE NEB SOLN 0.02% 2.5 ML VIAL INH SCH ×2 (15:00→19:23)
[2016-05-23] MEDS: LEVALBUTEROL 1.25MG/0.5ML NEB INH SCH ×2 (15:00→19:23)
[2016-05-24 01:44] VITALS: PULSE 77; O2SAT 98
[2016-05-24] MEDS: LEVALBUTEROL 1.25MG/0.5ML NEB INH SCH ×2 (01:44→07:45)
[2016-05-24] MEDS: IPRATROPIUM BROMIDE NEB SOLN 0.02% 2.5 ML VIAL INH SCH ×2 (01:44→07:45)
[2016-05-24 06:38] LABS: HEMATOCRIT 29.4 % (37-47); IG% 0.3 %; LYMPH % 10.1 %; LYMPH ABS # 1.03 K/uL (1.2-3.4); MEAN CELL VOLUME 83.8 fL (80-100); MEAN CORPUSCULAR HEMOGLOBIN 25.4 pg (25-34); MEAN CORPUSCULAR HGB CONC 30.3 g/dl (32-36); MEAN PLATELET VOLUME 9.1 fL (7.4-10.4); MONO % 6.9 %; NEUT % 82.7 %; PLATELET COUNT 282 K/uL (130-400); RED BLOOD COUNT 3.51 M/uL (4.2-5.4); WHITE BLOOD COUNT 10.21 K/uL (4.8-10.8)
[2016-05-24 07:00] LABS: COMPLETE YES; HYPOCHROMIA PRESENT; POLYCHROMASIA 1+
[2016-05-24 07:03] LABS: BUN/CREATININE RATIO 27.6 (10-20); CALCIUM 8.6 mg/dl (8.5-10.1); CREATININE 0.71 mg/dl (0.60-1.20); POTASSIUM 4.7 mmol/L (3.5-5.1)
[2016-05-24 07:18] VITALS: BP 154/79; PULSE 83; TEMP 36.8; O2SAT 97
[2016-05-24 08:03] VITALS: PULSE 79; O2SAT 98
[2016-05-24] MEDS: FLUTICASONE/SALMETEROL 250/50 (ADVAIR) 14 PUFF/1 INHALER INH SCH (09:23)
[2016-05-24] MEDS: MAGNESIUM OXIDE 400 MG TAB PO SCH (09:24)
[2016-05-24] MEDS: ESCITALOPRAM OXALATE 10 MG TAB PO SCH (09:51)
[2016-05-24] MEDS: METOPROLOL SUCC 25MG EXT REL TAB PO SCH (09:52)
[2016-05-24] MEDS: POTASSIUM CHLORIDE 20 MEQ TABCR PO SCH (09:52)
[2016-05-24] MEDS: RANITIDINE HCL 150 MG TAB PO SCH (09:53)
[2016-05-24] MEDS: PANTOprazole SOD 40 MG TAB PO SCH (09:53)
[2016-05-24 10:46] VITALS: O2SAT 95
[2016-05-24] MEDS ORDERED: LEVOFLOXACIN 500 MG TAB PO SCH (11:00)
[2016-05-24] MEDS ORDERED: LVQ500 PO (12:13)
[2016-05-24] MEDS ORDERED: PRD20 PO (12:13)
--- NOTE | 2016-05-24 12:18 | Discharge Instructions ---
Discharge Instructions Admission Reason for Admission: Respiratory Failure, COPD exacerbation Discharge Discharge Diagnosis / Problem: COPD exacerbation, acute hypoxic respiratory failure Discharge Goals Goal(s): Improve function, Improve disease control Activity Recommendations Activity Limitations: resume your previous activity Lifting Limitations: none Exercise/Sports Limitations: as tolerated Shower/Bathe: no limitations . Instructions / Follow-Up Instructions / Follow-Up Medications: - LEVAQUIN: 500mg daily, first dose tomorrow AM, take for 2 days - PREDNISONE: starting tomorrow, 40mg (2 tablets) in the morning x 1 day then 30mg (1 1/2 tablets) daily x 3 days then 20mg daily x 3 days then 10mg daily x 3 days then stop COPD exacerbation: should continue to improve over the next week, take it easy over the weekend, get rest, stay well hydrated and nourished Smoking: you need to stop smoking, will only continue to get exacerbations of COPD Oxygen: you are to use 2L any time you exert yourself, including walking around the house FOLLOW UP - call for follow up with Sabi Prather in the next week Current Hospital Diet Patient's current hospital diet: AHA Diet (Heart Healthy) Discharge Diet Recommended Diet: AHA Diet (Heart Healthy) Pending Studies Studies pending at discharge: no Laboratory Results Last Resulted CBC 05/24/16 06:12 Red Blood Count 3.51, Mean Corpuscular Volume 83.8, Mean Corpuscular Hemoglobin 25.4, Mean Corpuscular Hemoglobin Concent 30.3, Mean Platelet Volume 9.1, Neutrophils (%) (Auto) 82.7, Lymphocytes (%) (Auto) 10.1, Monocytes (%) (Auto) 6.9, Eosinophils (%) (Auto) 0.0, Basophils (%) (Auto) 0.0, Neutrophils # (Auto) 8.45, Lymphocytes # (Auto) 1.03, Monocytes # (Auto) 0.70, Eosinophils # (Auto) 0.00, Basophils # (Auto) 0.00 Last Resulted BMP 05/24/16 06:12 Medical Emergencies . Who to Call and When: Medical Emergencies: If at any time you feel your situation is an emergency, please call 911 immediately. . Non-Emergent Contact Non-Emergency issues call your: Primary Care Provider Call Non-Emergent contact if: you have a fever, you have any medication questions . . "Provider Documentation" section prepared by Robert Kenney. VTE Core Measure Inpt VTE Proph given/why not?: Enoxaparin (Lovenox)SQ
[2016-05-24 12:55] VITALS: BP 154/79; PULSE 79; TEMP 36.8; O2SAT 95
--- NOTE | 2016-05-25 09:10 | Discharge Summary ---
Discharge Summary Admission Date: May 22, 2016 at 09:03 Discharge Date: May 24, 2016 Discharge Disposition: Home Principal Diagnosis: COPD exacerbation Problems/Secondary Diagnoses: Acute hypoxic respiratory failure Tobacco abuse Immunizations: Have You Had Influenza Vaccine: No History of Tetanus Vaccine?: Yes Tetanus Immunization Date: Oct 26, 2006 History of Pneumococcal: No History of Hepatitis B Vaccine: No Procedures: 2 step - requires 2L on exertion Consultations: none Medication Reconciliation New Medications: Levofloxacin (Levofloxacin) 500 Mg Tab 500 MG PO DAILY@11 for 2 Days, #2 TAB 0 Refills Prednisone (Prednisone) 20 Mg Tab 40 MG PO QAM for 10 Days, #11 TAB 0 Refills Taper: 40mg x 1 day then 30mg x 3 days then 20mg x 3 days then 10mg x 3 days then stop Continued Medications: Acetaminophen (Tylenol) 500 Mg Tab 500 MG PO Q4 PRN for Pain, TAB Alprazolam (Xanax) 1 Mg Tab 1 MG PO Q8 PRN for Anxiety Cholecalciferol (Vitamin D3) 2,000 Unit Cap 1 CAP PO DAILY for 90 Days, #90 CAP 3 Refills Escitalopram Oxalate (Escitalopram Oxalate) 10 Mg Tab 10 MG PO DAILY Fluticasone Prop/Salmeterol (Advair Diskus 250/50 60 Dose) 1 Ea Aerp 1 PUFF INH BID, #1 INHALER 2 Refills Ipratropium-Albuterol (Combivent Respimat) 1 Aer Aer 1 PUFF INH Q6H, #1 INH 2 Refills Magnesium Oxide (Mag-Ox) 400 Mg Tab 400 MG PO BID, TAB Metoprolol Succinate (Metoprolol Succinate ER) 25 Mg Tabcr 25 MG PO DAILY Multiple Vitamin (Multivitamin) 1 Tab Tab 1 TAB PO QAM, TAB Omeprazole (Prilosec) 20 Mg Cap 20 MG PO DAILY Potassium Chloride Microencaps (Potassium Chloride Er) 20 Meq Tab 20 MEQ PO DAILY Ranitidine (Zantac) 150 Mg Tab 150 MG PO DAILY, TAB Discharge Exam Patient feeling much better breathing, less cough, no sputum production. Eating well. Normal energy level. Did 2 step and requires oxygen on exertion. Feels ready to go home. Review of Systems: Constitutional: No chills, No fatigue, No fever, No problem reported, No sweats, No weakness, No weight loss Eyes: No diplopia, No discharge, No eye pain, No problem reported, No redness, No worsening of vision ENT: No dental problems, No hearing loss, No nasal symptoms, No problem reported, No sore throat, No tinnitus, No trouble swallowing, No unusual epistaxis Respiratory: + cough, + dyspnea on exertion, No dyspnea at rest, No hemoptysis, No shortness of breath, No sputum, No wheezing Cardiovascular: No PND, No chest pain, No claudication, No edema, No orthopnea, No palpitations, No problem reported Abdomen: No GI bleeding, No constipation, No diarrhea, No nausea, No pain, No problem reported, No vomiting Musculoskeletal: No calf pain, No joint pain, No muscle pain, No problem reported, No swelling Genitourinary - Female: No dysuria, No hematuria, No urinary frequency, No urinary incontinence, No urinary retention, No urinary urgency Neurologic: No balance problems, No memory loss, No numbness/tingling, No paralysis, No problem reported, No vertigo, No weakness Psychiatric: No anhedonism, No anxiety, No depression symptoms, No insomnia , No problem reported, No substance abuse Endocrine: No excessive thirst, No excessive urination, No fatigue, No problem reported Hematologic / Lymphatic: No abnormal bleeding/bruising, No clotting problems , No night sweats, No problem reported, No swollen lymph nodes Integumentary: No bleeding, No color change, No itch, No new/changing skin lesions, No problem reported, No rash Physical Exam: General Appearance: no apparent distress, + thin Eyes: normal inspection, EOMI, sclerae normal ENT: normal ENT inspection, hearing grossly normal, pharynx normal Neck: supple, no adenopathy, no JVD, trachea midline Respiratory/Chest: chest non-tender, lungs clear, no respiratory distress, no accessory muscle use, + decreased breath sounds (no wheezing) Cardiovascular: regular rate, rhythm, no edema, no gallop, no JVD, no murmur , normal peripheral pulses Abdomen / GI: normal bowel sounds, non tender, soft, no organomegaly Extremities: normal inspection, no calf tenderness, normal capillary refill , no pedal edema, normal range of motion 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 Recent illness with productive cough, SOB, and wheezing. No supplemental oxygen at home currently. O2 sat in 80s on room air at home. Pt tachycardic and tachypneic upon arrival. CXR shows severe emphysema but no acute disease. EKG sinus tach. ABG shows pH of 7.42, pCO2 of 48, pO2 of 165, HCO3 of 30. WBC elevated at 15.96. Received albuterol and CPAP in ambulance and Solu-Medrol 80 mg IV x 1 in ED. Acute on chronic respiratory failure secondary to COPD exacerbation breathing much better today, no dyspnea at rest, no wheezing, still has GRIMES plan to d/c home, Levaquin 500mg daily x 2 more days Prednisone, 40mg daily with a scheduled taper over the next 10 days continue maintenance inhalers and albuterol rescue inhaler 2 step today showed no oxygen at rest but requires 2L on exertion, set up for home Oxygen HTN--stable -Continue metoprolol succinate 25 mg PO qam Anxiety and depression -Continue alprazolam 1 mg PO q8h prn anxiety and escitalopram 10 mg PO qd GI prophylaxis -Maalox Max 15 mL PO q4h prn dyspepsia -Milk of magnesia 30 mL PO q6h prn constipation -Miralax 17 gm PO qd prn constipation -Zofran 4 mg IV q6h prn nausea DVT prophylaxis -Enoxaparin 40 mg SC q24h -CONCEPCION linn and SCDs Code Status -Level V, DO NOT RESUSCITATE Plan: d/c home on supplemental oxygen, Levaquin and Prednisone taper, follow up with Sabi Prather Total Time Spent: Greater than 30 minutes This includes examination of the patient, discharge planning, medication reconciliation, and communication with other providers. Discharge Instructions Please refer to the electronic Patient Visit Report (Discharge Instructions) for additional information. Follow-Up [facility] in one week Additional Copies To Pinky Aiken C.R.N.P
[2016-07-31] MEDS ORDERED: CLC100 PO (13:00)
[2016-07-31] MEDS ORDERED: DSY50 PO (13:00)
[2016-07-31] MEDS ORDERED: ASPEC81 PO (13:00)
[2016-07-31] MEDS ORDERED: DLC5 PO (13:00)
[2016-07-31] MEDS ORDERED: CALCTAB7 PO (13:00)
[2016-07-31] MEDS ORDERED: XNX5 PO (13:00)
[2016-07-31] MEDS ORDERED: PRD10 PO (13:00)
[2016-07-31] MEDS ORDERED: ANT25 PO (13:00)
[2016-07-31] MEDS ORDERED: ATRINS INH (13:00)
[2016-07-31] MEDS ORDERED: MGCUDL400 PO (13:00)
== END 2016-05-24 14:47 | disposition home or self-care (01) | DRG 190 ==
LOC: ENRESERVTM → ENRESERVDT → EDBD 06:20 → C.EDB 06:21 → C.MSICU 09:03 → C.MS4W 05-23 14:01
PROVIDERS: ADMIT Hospitalist; ATTEND Internal Medicine
DX: J44.1 Chronic obstructive pulmonary disease with (acute) exacerbation (principal); J96.21 Acute and chronic respiratory failure with hypoxia; J96.02 Acute respiratory failure with hypercapnia; K86.1 Other chronic pancreatitis; F32.9 Major depressive disorder, single episode, unspecified; D64.9 Anemia, unspecified; F41.9 Anxiety disorder, unspecified; I10 Essential (primary) hypertension; K27.9 Peptic ulcer, site unspecified, unspecified as acute or chronic, without hemorrhage or perforation; M81.0 Age-related osteoporosis without current pathological fracture; F17.210 Nicotine dependence, cigarettes, uncomplicated; H40.9 Unspecified glaucoma; G20 Parkinson's disease; K59.00 Constipation, unspecified; Z66 Do not resuscitate; Z99.81 Dependence on supplemental oxygen; Z86.79 Personal history of other diseases of the circulatory system; Z79.51 Long term (current) use of inhaled steroids; Z79.899 Other long term (current) drug therapy

== ENCOUNTER 2016-07-23 05:29 | Inpatient (IN) | payer OTHER ==
[2016-07-23] VITALS (7 sets, daily range): BP systolic 118–156; BP diastolic 69–88; PULSE 88–104; TEMP 36.6–37.3; O2SAT 92–99; Ht 167.6 cm; Wt 47.8 kg
[~2016-07-23] VITALS: Ht 167.6 cm; Wt 47.8 kg
[~2016-07-23 05:29] MED LIST changes: +ACET-1256 PO; -ANT125 PO; +CHOL2000 PO; -DILT180C70 PO; -KFL500 PO; -LSX20 PO; +LVQ500 PO; -ONDA4TAB9 PO; +PRD20 PO; +ZNTT/150 PO
[2016-07-23] MEDS ORDERED: SODIUM CHLORIDE 0.9% 1000ML 1,000 ML IV SCH (05:36)
--- NOTE | 2016-07-23 05:51 | EMERGENCY ROOM VISIT NOTE ---
History Report prepared by Isiahibceleste: Jas Min Under the Supervision of: Roula EmanuelO. First contact with patient: 05:32 Chief Complaint: FALL Stated Complaint: FALL/ NEURO SYMPTOMS History of Present Illness The patient is a 76 year old female with a history of COPD who presents to the Emergency Room with complaints of persistent stroke-like symptoms that started three days ago. The patient appears to have left-sided weakness, per EMS. The patient tripped and fell when she was using her walker this morning, but she did not hit her head. She denies any pain. As per her , the patient's speech has been abnormal for three days. She has also been more short of breath than baseline and has not been eating or drinking well. The patient has complained to her of nausea but has not vomited. He is not aware of any loss of her bladder control. She does not have a stroke history. Source of History: patient, spouse/significant other, EMS Onset: three days ago Position: other (neuro) Quality: other (stroke-like symptoms) Timing: other (persistent) Associated Symptoms: + SOB, + nausea, + weakness, No vomiting Review of Systems See HPI for pertinent positives & negatives. A total of 10 systems reviewed and were otherwise negative. Past Medical & Surgical Medical Problems: (1) Age related osteoporosis (2) Anemia (3) Anxiety disorder (4) CHF (congestive heart failure) (5) Compression fracture (6) Depression (7) Fall (8) Fall at home (9) Gastric ulcer (10) Glaucoma (11) Hypertension (12) Hypertension Nos (13) Osteoporosis (14) Pancreatitis (15) Parkinsonism (16) Peptic ulcer disease (17) Respiratory failure (18) Right hip pain (19) Slurred speech (20) Stomach ulcer Surgical Problems: (1) Hx of appendectomy (2) S/P colonoscopy (3) S/P endoscopy Family History Cancer (unknown type) MOTHER Heart disease FATHER Social History Smoking Status: Current Some Day Smoker Alcohol Use: none Drug Use: none Marital Status: Housing Status: lives with significant other Occupation Status: retired Current/Historical Medications Scheduled Cholecalciferol (Vitamin D3), 1 CAP PO DAILY Escitalopram Oxalate (Escitalopram Oxalate), 10 MG PO DAILY Fluticasone Prop/Salmeterol (Advair Diskus 250/50 60 Dose), 1 PUFF INH BID Ipratropium-Albuterol (Combivent Respimat), 1 PUFF INH Q6H Magnesium Oxide (Mag-Ox), 400 MG PO BID Metoprolol Succinate (Metoprolol Succinate ER), 25 MG PO DAILY Multiple Vitamin (Multivitamin), 1 TAB PO QAM Omeprazole (Prilosec), 20 MG PO DAILY Potassium Chloride Microencaps (Potassium Chloride Er), 20 MEQ PO DAILY Ranitidine (Zantac), 150 MG PO DAILY Scheduled PRN Acetaminophen (Tylenol), 500 MG PO Q4 PRN for Pain Alprazolam (Xanax), 1 MG PO Q8 PRN for Anxiety Allergies Coded Allergies: Oxycodone (Verified Adverse Reaction, Intermediate, NAUSEA, 12/10/15) Codeine (Verified Adverse Reaction, Mild, NAUSEA, 12/10/15) Physical Exam Vital Signs Date Time Temp Pulse Resp B/P Pulse Ox O2 Delivery O2 Flow Rate FiO2 07/23/16 06:24 100 24 177/91 100 Nasal Cannula 4.0 07/23/16 05:47 Nasal Cannula 07/23/16 05:46 95 Nasal Cannula 4.0 07/23/16 05:37 107 07/23/16 05:37 36.9 106 18 172/90 85 Nasal Cannula 2.0 Physical Exam General: Appears to be in mild respiratory distress. HEENT: Head - normocephalic and atraumatic. Pupils are equal, round, and reactive to light. Extraocular eye muscles are intact and sclera are anicteric. Ears - bilaterally patent canals with noninjected tympanic membranes and no evidence of hemotympanum. Nose - moist nasal mucosa without discharge. Mouth - extremely dry buccal mucosa. Oropharynx is nonerythematous and there is no tonsillar exudate or edema noted. Neck: Supple; no JVD, nuchal rigidity, cervical lymphadenopathy, or auscultated bruits. Heart: Regular rate and rhythm. There is a normal S1 and S2 with no murmurs, clicks, or gallops appreciated. Lungs: Diminished breath sounds in all lung reid with rales throughout. Abdomen: Abdomen is protuberant. Soft, completely nontender, with good bowel sounds. There are no palpable pulsatile masses or hepatosplenomegaly. There is no guarding, rigidity, or rebound noted. Extremities: No evidence of cyanosis, clubbing, or edema. There are easily palpable peripheral pulses. Neuro: The patient has slurred speech. The patient is awake and alert, oriented to day, time, and place. Muscle strength 4/5 in left arm and leg, 5/5 on the right. Slurred speech. There are no cerebellar signs. Medical Decision & Procedures ER Provider Diagnostic Interpretation: Radiology results as stated below per my review and the radiologist's interpretation: CT HEAD: No evidence of acute infarct, hemorrhage, mass or edema. Chronic small vessel ischemic disease and senescent changes. Mild mucosal thickening in the paranasal sinuses. No acute osseous abnormality. Radiologist: Luke Gilmore MD. X-ray results as stated below per interpretation by me. CHEST ONE VIEW PORTABLE: Evidence of CHF with a right pleural effusion. Laboratory Results 07/23/16 04:50 Red Blood Count 3.89, Mean Corpuscular Volume 81.0, Mean Corpuscular Hemoglobin 25.2, Mean Corpuscular Hemoglobin Concent 31.1, Mean Platelet Volume 8.8, Neutrophils (%) (Auto) 89.5, Lymphocytes (%) (Auto) 4.9, Monocytes (%) (Auto) 5.1, Eosinophils (%) (Auto) 0.0, Basophils (%) (Auto) 0.2, Neutrophils # (Auto) 12.02, Lymphocytes # (Auto) 0.66, Monocytes # (Auto) 0.69, Eosinophils # (Auto) 0.00, Basophils # (Auto) 0.03 07/23/16 04:50 Test 07/23/16 04:50 07/23/16 05:40 07/23/16 06:03 White Blood Count 13.44 K/uL (4.8-10.8) Red Blood Count 3.89 M/uL (4.2-5.4) Hemoglobin 9.8 g/dL (12.0-16.0) Hematocrit 31.5 % (37-47) Mean Corpuscular Volume 81.0 fL (80-100) Mean Corpuscular Hemoglobin 25.2 pg (25-34) Mean Corpuscular Hemoglobin Concent 31.1 g/dl (32-36) Platelet Count 288 K/uL (130-400) Mean Platelet Volume 8.8 fL (7.4-10.4) Neutrophils (%) (Auto) 89.5 % Lymphocytes (%) (Auto) 4.9 % Monocytes (%) (Auto) 5.1 % Eosinophils (%) (Auto) 0.0 % Basophils (%) (Auto) 0.2 % Neutrophils # (Auto) 12.02 K/uL (1.4-6.5) Lymphocytes # (Auto) 0.66 K/uL (1.2-3.4) Monocytes # (Auto) 0.69 K/uL (0.11-0.59) Eosinophils # (Auto) 0.00 K/uL (0-0.5) Basophils # (Auto) 0.03 K/uL (0-0.2) RDW Standard Deviation 54.3 fL (36.4-46.3) RDW Coefficient of Variation 18.2 % (11.5-14.5) Immature Granulocyte % (Auto) 0.3 % Immature Granulocyte # (Auto) 0.04 K/uL (0.00-0.02) Prothrombin Time 12.5 SECONDS (9.0-12.0) Prothromb Time International Ratio 1.2 (0.9-1.1) Activated Partial Thromboplast Time 33.5 SECONDS (21.0-31.0) Partial Thromboplastin Ratio 1.3 Anion Gap 6.0 mmol/L (3-11) Est Creatinine Clear Calc Drug Dose 49.3 ml/min Estimated GFR () 84.9 Estimated GFR (Non- 73.2 BUN/Creatinine Ratio 9.7 (10-20) Calcium Level 8.3 mg/dl (8.5-10.1) Total Creatine Kinase 87 U/L (26-192) Creatine Kinase MB 1.6 ng/ml (0.5-3.6) Creatine Kinase MB Ratio 1.8 (0-3.0) Troponin I < 0.015 ng/ml (0-0.045) Urine Opiates Screen NEG (NEG) Urine Methadone, Qualitative NEG (NEG) Urine Barbiturates NEG (NEG) Urine Phencyclidine (PCP) Level NEG (NEG) Ur Amphetamine/Methamphetamine NEG (NEG) MDMA (Ecstasy) Screen NEG (NEG) Urine Benzodiazepines Screen POS (NEG) Urine Cocaine Metabolite NEG (NEG) Urine Marijuana (THC) NEG (NEG) Bedside Prothrombin Time INR 1.1 (0.9-1.1) Laboratory results per my review. Medications Administered Medications (Trade) Dose Ordered Sig/[place]urel Route Start Time Stop Time Status Last Admin Dose Admin Sodium Chloride (Nss 1000ml) 1,000 ml @ 50 mls/hr Q20H IV 07/23/16 05:36 08/22/16 05:35 07/23/16 06:19 50 MLS/HR Procedure Medications administered include NSS IV. ECG Indication: weakness Rate (beats per minute): 100 Rhythm: normal sinus Findings: no acute ischemic change, no ectopy ED Course 0535: Past medical records reviewed. The patient was evaluated in room B2. A complete history and physical exam was performed. IV lock was established. A twelve-lead EKG was obtained. 0536: NSS 1000 ml @ 50 mls/hr. patient went for CT scan of the brain. This was unremarkable. She'll portal chest x-ray which showed evidence of heart failure and a right-sided pleural effusion. 06: Updated the patient and her . 0630: [facility] Decision The patient is a 76 year old female who presents to the ED with stroke-like symptoms. Differential diagnosis includes COPD exacerbation, CVA, intracranial hemorrhage, UTI, dehydration. Laboratory interpretation: White count 13.4, hemoglobin 9.8, urine tox screen positive for benzodiazepines,INR 1.2, sodium 131, chloride 94, normal renal function and glucose, negative cardiac enzymes. The patient had been having stroke symptoms over the past 3 days. She did suffer a fall tonight after she tripped trying to use her walker. It does not seem that she suffered any acute traumatic injuries as a result of the fall. Chest x-ray shows evidence of congestive heart failure. The patient does have a history of extensive COPD. On physical exam, she does have rales in all lung reid. She was hemodynamically stable. She will go for MRI. I discussed the case with the [facility]ist Consults Time Called: [phone] Consulting Physician: Dr. Paz, [facility]. Returned Call: [phone]: Discussed the case with Dr. Paz, [facility]. Impression Primary Impression: Acute CVA (cerebrovascular accident) Additional Impression: CHF (congestive heart failure) Scribe Attestation The scribe's documentation has been prepared under my direction and personally reviewed by me in its entirety. I confirm that the note above accurately reflects all work, treatment, procedures, and medical decision making performed by me. Time Last Known Well 3 days Stroke t-PA Criteria Reviewed Does NOT meet criteria for t-PA Reason t-PA Not Given Contraindicated Departure Information Dispostion Being Evaluated By Hospitalist Referrals Pinky Aiken C.R.N.P (PCP) Patient Instructions My [facility] Problem Qualifiers
[2016-07-23 06:06] LABS: BASO % 0.2 %; BASO ABS # 0.03 K/uL (0-0.2); COMPLETE YES; HEMATOCRIT 31.5 % (37-47); IG% 0.3 %; LYMPH % 4.9 %; LYMPH ABS # 0.66 K/uL (1.2-3.4); MEAN CORPUSCULAR HEMOGLOBIN 25.2 pg (25-34); MEAN CORPUSCULAR HGB CONC 31.1 g/dl (32-36); MEAN PLATELET VOLUME 8.8 fL (7.4-10.4); MONO % 5.1 %; NEUT % 89.5 %; PLATELET COUNT 288 K/uL (130-400); RED BLOOD COUNT 3.89 M/uL (4.2-5.4); WHITE BLOOD COUNT 13.44 K/uL (4.8-10.8)
[2016-07-23 06:16] LABS: INR 1.2 (0.9-1.1); PARTIAL THROMBOPLASTIN RATIO 1.3; PROTHROMBIN TIME (PATIENT) 12.5 SECONDS (9.0-12.0)
[2016-07-23 06:17] LABS: BENZODIAZEPINE, URINE POS (NEG); COCAINE,URINE NEG (NEG); PHENCYCLIDINE, URINE NEG (NEG)
[2016-07-23 06:24] LABS: BLOOD UREA NITROGEN 8 mg/dl (7-18); BUN/CREATININE RATIO 9.7 (10-20); CALCIUM 8.3 mg/dl (8.5-10.1); CARBON DIOXIDE 31 mmol/L (21-32); CHLORIDE 94 mmol/L (98-107); CREATININE 0.79 mg/dl (0.60-1.20); GLUCOSE 94 mg/dl (70-99); SODIUM 131 mmol/L (136-145)
[2016-07-23 06:28] LABS: CKMB/CK RATIO 1.8 (0-3.0)
[2016-07-23] MEDS ORDERED: ENOXAPARIN 40 MG/0.4 ML SYR SC SCH (07:00)
[2016-07-23] MEDS ORDERED: PHARMACIST DISCHARGE MED REC CONSULT PRN (07:00)
[2016-07-23] MEDS ORDERED: GLUCOSE 40% GEL 15 GM TUBE PO PRN (07:00)
[2016-07-23] MEDS ORDERED: GLUCOSE 10 TABS/TUBE PO PRN (07:00)
[2016-07-23] MEDS ORDERED: DEXTROSE 50% 50 ML SYR IV PRN (07:00)
[2016-07-23] MEDS ORDERED: GLUCAGON FOR INJ 1 MG VIAL SQ PRN (07:00)
[2016-07-23] MEDS ORDERED: MoRPHine SULFATE 4 MG/ML 1 ML CARP\\VIAL IV PRN (07:00)
[2016-07-23] MEDS ORDERED: FUROSEMIDE 40 MG/4 ML VIAL IV STA (07:01)
--- NOTE | 2016-07-23 07:13 | DIAGNOSTIC IMAGING REPORT ---
CT SCAN OF THE BRAIN WITHOUT IV CONTRAST CLINICAL HISTORY: Strokelike symptoms. COMPARISON STUDY: CT of the brain dated 12/10/2015. MRI of the brain dated 12/10/2015. TECHNIQUE: Unenhanced axial CT scan of the brain is performed from the vertex to the skull base. CT DOSE: 729.78 mGycm FINDINGS: Brain parenchyma: There are age-related involutional changes noting moderate patchy subcortical and periventricular microangiopathic change. There is no hemorrhage, mass effect, or evidence of acute territorial ischemia by CT criteria. Harvey-white matter is preserved. No extra-axial fluid collection is seen. Ventricles, sulci, cisterns: Prominent secondary to involutional change. Intracranial vasculature: There is atherosclerotic calcification of the cavernous carotid and vertebral arteries. Calvarium: Unremarkable. Sinuses and mastoids: Mucosal thickening is seen within a right posterior ethmoid sinus. The remaining paranasal sinuses are clear. The mastoid air cells are well pneumatized. Orbits: The bony orbits are grossly intact. There is a right ocular lens implant. Soft tissues: A 2.0 cm nodule in the left parotid gland is unchanged. IMPRESSION: 1. Senescent changes as above with no hemorrhage, mass effect, or evidence of acute territorial ischemia by CT criteria. 2. A 2.0 cm left parotid nodule is unchanged. Electronically signed by: Dick Vargas M.D. 07/23/2016 7:11 AM Dictated Date/Time: 07/23/2016 7:08 AM
--- NOTE | 2016-07-23 07:18 | History and Physical ---
History & Physical Date & Time of Service: Jul 23, 2016 at 07:03 Chief Complaint: Fall/ Neuro Symptoms Primary Care Physician: Pinky Aiken C.R.N.P History of Present Illness Source: patient, spouse The patient is a 76-year-old female who presents to the emergency department with left-sided weakness that began about 3 days prior to arrival. Her reports that her speech has been abnormal for the past 3 days, she has been more short of breath than her baseline, complaining of nausea, and not eating or drinking as well. She tripped and fell when she was using her walker this morning, which prompted a call to EMS and a trip to the emergency department for assessment. Past Medical/Surgical History Medical Problems: (1) Age related osteoporosis Status: Chronic (2) Anemia Status: Chronic (3) Anxiety disorder Status: Chronic (4) CHF (congestive heart failure) Status: Chronic (5) Compression fracture Status: Chronic (6) Depression Status: Chronic (7) Fall Status: Resolved (8) Fall at home Status: Resolved (9) Gastric ulcer Status: Chronic (10) Glaucoma Status: Chronic (11) Hypertension Status: Chronic (12) Hypertension Nos Status: Chronic (13) Osteoporosis Status: Chronic (14) Pancreatitis Status: Chronic (15) Parkinsonism Status: Chronic (16) Peptic ulcer disease Status: Chronic (17) Respiratory failure Status: Chronic (18) Right hip pain Status: Resolved (19) Stomach ulcer Status: Chronic Surgical Problems: (1) Hx of appendectomy Status: Resolved (2) S/P colonoscopy Status: Resolved (3) S/P endoscopy Status: Resolved Family History Cancer (unknown type) MOTHER Heart disease FATHER Social History Smoking Status: Current Some Day Smoker Smokeless Tobacco Use: No Alcohol Use: none Drug Use: none Marital Status: Housing status: lives with significant other Occupational Status: retired Immunizations History of Influenza Vaccine: No History of Tetanus Vaccine?: Yes Tetanus Immunization Date: Oct 26, 2006 History of Pneumococcal: No History of Hepatitis B Vaccine: No Multi-Drug Resistant Organisms History of MDRO: No Allergies Coded Allergies: Oxycodone (Verified Adverse Reaction, Intermediate, NAUSEA, 12/10/15) Codeine (Verified Adverse Reaction, Mild, NAUSEA, 12/10/15) Home Medications Scheduled Cholecalciferol (Vitamin D3), 1 CAP PO DAILY Escitalopram Oxalate (Escitalopram Oxalate), 10 MG PO DAILY Fluticasone Prop/Salmeterol (Advair Diskus 250/50 60 Dose), 1 PUFF INH BID Ipratropium-Albuterol (Combivent Respimat), 1 PUFF INH Q6H Magnesium Oxide (Mag-Ox), 400 MG PO BID Metoprolol Succinate (Metoprolol Succinate ER), 25 MG PO DAILY Multiple Vitamin (Multivitamin), 1 TAB PO QAM Omeprazole (Prilosec), 20 MG PO DAILY Potassium Chloride Microencaps (Potassium Chloride Er), 20 MEQ PO DAILY Ranitidine (Zantac), 150 MG PO DAILY Scheduled PRN Acetaminophen (Tylenol), 500 MG PO Q4 PRN for Pain Alprazolam (Xanax), 1 MG PO Q8 PRN for Anxiety Review of Systems The patient is not able to contribute significantly to her history of present illness or review of systems due to her altered mental state. When asked any questions she answers "all right". Her is able to contribute to both history of present illness and review of systems and is as noted above Physical Exam Vital Signs Date Time Temp Pulse Resp B/P Pulse Ox O2 Delivery O2 Flow Rate FiO2 07/23/16 06:24 100 24 177/91 100 Nasal Cannula 4.0 07/23/16 05:47 Nasal Cannula 07/23/16 05:46 95 Nasal Cannula 4.0 07/23/16 05:37 107 07/23/16 05:37 36.9 106 18 172/90 85 Nasal Cannula 2.0 The patient is awake, somewhat confused, appears very thin, lying in bed and in no acute distress. HEENT--PERRL, EOMI, mucous membranes and oropharynx very dry. Neck--supple, no JVD or bruits, thyroid normal, trachea midline, no adenopathy. Heart--tachycardic and regular, no murmurs, rubs or gallops. Lungs--very coarse breath sounds bilaterally with scattered wheezes, no respiratory distress, no accessory muscle use. Abdomen--normal bowel sounds and soft, nontender and nondistended, no hernias or masses, no organomegaly. Extremities--no cyanosis, clubbing or edema. There are good distal pulses b/l. Dermatologic--normal skin turgor, normal color, warm and dry, no abnormal lymph nodes, no rash. Neurologic--cranial nerves II through XII grossly intact, motor strength 5 out of 5 right upper lower extremity, left upper extremity 4 out of 5 left lower extremity 4+ out of 5. Rheumatologic--normal range of motion, nontender, muscles and joints for age. Psychiatric--confused and disoriented. Diagnostics Laboratory Results Results Past 24 Hours Test 07/23/16 04:50 07/23/16 05:40 07/23/16 06:03 07/23/16 06:48 Range/Units White Blood Count 13.44 4.8-10.8 K/uL Red Blood Count 3.89 4.2-5.4 M/uL Hemoglobin 9.8 12.0-16.0 g/dL Hematocrit 31.5 37-47 % Mean Corpuscular Volume 81.0 80-100 fL Mean Corpuscular Hemoglobin 25.2 25-34 pg Mean Corpuscular Hemoglobin Concent 31.1 32-36 g/dl Platelet Count 288 130-400 K/uL Mean Platelet Volume 8.8 7.4-10.4 fL Neutrophils (%) (Auto) 89.5 % Lymphocytes (%) (Auto) 4.9 % Monocytes (%) (Auto) 5.1 % Eosinophils (%) (Auto) 0.0 % Basophils (%) (Auto) 0.2 % Neutrophils # (Auto) 12.02 1.4-6.5 K/uL Lymphocytes # (Auto) 0.66 1.2-3.4 K/uL Monocytes # (Auto) 0.69 0.11-0.59 K/uL Eosinophils # (Auto) 0.00 0-0.5 K/uL Basophils # (Auto) 0.03 0-0.2 K/uL RDW Standard Deviation 54.3 36.4-46.3 fL RDW Coefficient of Variation 18.2 11.5-14.5 % Immature Granulocyte % (Auto) 0.3 % Immature Granulocyte # (Auto) 0.04 0.00-0.02 K/uL Prothrombin Time 12.5 9.0-12.0 SECONDS Prothromb Time International Ratio 1.2 0.9-1.1 Activated Partial Thromboplast Time 33.5 21.0-31.0 SECONDS Partial Thromboplastin Ratio 1.3 Sodium Level 131 136-145 mmol/L Potassium Level 4.0 3.5-5.1 mmol/L Chloride Level 94 98-107 mmol/L Carbon Dioxide Level 31 21-32 mmol/L Anion Gap 6.0 3-11 mmol/L Blood Urea Nitrogen 8 7-18 mg/dl Creatinine 0.79 0.60-1.20 mg/dl Est Creatinine Clear Calc Drug Dose 49.3 ml/min Estimated GFR () 84.9 Estimated GFR (Non- 73.2 BUN/Creatinine Ratio 9.7 10-20 Random Glucose 94 70-99 mg/dl Calcium Level 8.3 8.5-10.1 mg/dl Total Creatine Kinase 87 26-192 U/L Creatine Kinase MB 1.6 0.5-3.6 ng/ml Creatine Kinase MB Ratio 1.8 0-3.0 Troponin I < 0.015 0-0.045 ng/ml Urine Opiates Screen NEG NEG Urine Methadone, Qualitative NEG NEG Urine Barbiturates NEG NEG Urine Phencyclidine (PCP) Level NEG NEG Ur Amphetamine/Methamphetamine NEG NEG MDMA (Ecstasy) Screen NEG NEG Urine Benzodiazepines Screen POS NEG Urine Cocaine Metabolite NEG NEG Urine Marijuana (THC) NEG NEG Bedside Prothrombin Time INR 1.1 0.9-1.1 Test 07/23/16 06:56 Range/Units EKG EKG shows normal sinus rhythm at 100 bpm, there are no acute ST-T changes. Impression Assessment and Plan Subacute right hemispheric CVA with left-sided weakness--CT of the head shows small vessel disease, no acute findings. We'll order an MRI of the brain combo , MRA of the neck combo, and MRA of the head without contrast. She'll be admitted to the telemetry unit for serial cardiac enzymes, cardiac rhythm monitoring and a 2-D echocardiogram with Dopplers. She has failed her dysphagia screen in the ED. 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 Suspect that she will likely need a rehabilitation stay after hospitalization. We'll check a fasting lipid profile , she will need to have aspirin and a statin added to her profile prior to discharge. CHF--place on furosemide 40 mg IV now and every morning. Suspect that she is third spacing. I have added a liver panel to her current laboratory to see if the albumin is low. COPD exacerbation--place on Solu-Medrol 60 mg IV every 6 hours, ceftriaxone 1 g IV daily, levofloxacin 5 mg IV every 24 hours, and Xopenex /Atrovent nebulizer to use every 6 hours while awake and every 2 hours when necessary. GERD--change omeprazole 20 mg by mouth daily to pantoprazole 40 mg IV daily. Anxiety/depression--Lexapro and Xanax on hold while nothing by mouth. Would hold on any IV Ativan this point due to disorientation. Level of Care Telemetry Advanced Directives Existing Advance Directive: No Existing Living Will: No Existing Power of Ict Business Analyst: No Resuscitation Status FULL RESUSCITATION VTE Prophylaxis VTE Risk Assessment Done? Y/N: Yes Risk Level: High Given or contraindicated: Enoxaparin (Lovenox)SQ, SCD's
--- NOTE | 2016-07-23 07:33 | DIAGNOSTIC IMAGING REPORT ---
SINGLE VIEW CHEST CLINICAL HISTORY: Dyspnea. FINDINGS: An AP, portable, upright chest radiograph is compared to study dated 05/22/2016 and correlated with chest CT dated 03/16/2015. The examination is significantly degraded by portable technique and patient rotation. The cardiomediastinal silhouette is unremarkable. There is atherosclerotic calcification of the thoracic aorta. Advanced emphysema and chronic interstitial thickening/nodularity are similar to previous. There is extensive biapical scarring. Patchy airspace opacities are seen at the right lung base. There is no large pleural effusion or pneumothorax. The skeletal structures are osteopenic. The bony thorax is grossly intact. IMPRESSION: 1. Advanced emphysema. 2. There are airspace opacities present at the right lung base. This could represent atelectasis, aspiration pneumonitis, and/or developing pneumonia. Clinical correlation will be required. Electronically signed by: Dick Vargas M.D. 07/23/2016 7:31 AM Dictated Date/Time: 07/23/2016 7:30 AM
[2016-07-23] MEDS ORDERED: LEVALBUTEROL 1.25MG/0.5ML NEB INH PRN (07:45)
[2016-07-23] MEDS ORDERED: IPRATROPIUM BROMIDE NEB SOLN 0.02% 2.5 ML VIAL INH PRN (07:45)
[2016-07-23 07:55] LABS: ESTIMATED AVERAGE GLUCOSE 103 mg/dl; HA1C FLAG Normal (Normal)
[2016-07-23] MEDS ORDERED: LEVALBUTEROL/IPRATROPIUM NEB INH SCH (09:00)
[2016-07-23] MEDS ORDERED: CEFTRIAXONE SOD INJ 1 GM in DEXTROSE 5% ADD-VANTAGE 50ML 50 ML IV SCH (10:00)
--- NOTE | 2016-07-23 10:08 | Neurology Consultation ---
Neurology Consultation Date of Consultation: Jul 23, 2016. Attending Physician: Umang Connolly MD, PhD Primary Care Physician: Pinky Aiken C.R.NJaguar Reason for Consultation: Stroke History of Present Illness Source: patient, hospital records The patient is a 76-year-old female who is known to me. She has a history of chronic, extensive, cerebrovascular disease and associated gait impairment. I had evaluated this patient during a hospitalization in November 2015 for very similar circumstances including changes in speech and balance of subacute onset. Her brain MRI at that time revealed rather extensive, chronic, cerebrovascular disease as well as a chronic appearing lacunar infarct within the left cerebral hemisphere. There was no imaging evidence of normal pressure hydrocephalus at that time. A carotid duplex at that time was unremarkable. The patient currently presents with subacute changes in speech, beginning about 3 days ago, shortness of breath, and poor by mouth intake. She has been observed to have mild to moderate left-sided weakness as well which seems to be new. The patient is a somewhat unreliable historian. He complains of feeling generally weak. She denies headache or vision changes. Past medical history significant for congestive heart failure, anemia, peptic ulcer disease. 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 I reviewed the images and radiologist's interpretation of the CT of the head completed at the time of this patient's recent hospitalization. There is no evidence of hemorrhage or other acute process. Chronic age-related volitional changes observed including chronic small vessel ischemic change and atrophy. Ventricle size within normal limits. Electrocardiogram reveals a normal sinus rhythm, 100 bpm. Past Medical/Surgical History Medical Problems: (1) Acute CVA (cerebrovascular accident) Status: Acute (2) Anemia Status: Chronic (3) Cachexia Status: Acute (4) CHF (congestive heart failure) Status: Chronic (5) Confusion Status: Acute (6) Dehydration Status: Acute (7) Dehydration Status: Acute (8) Dehydration Status: Acute (9) Fall Status: Acute (10) Generalized weakness Status: Acute (11) Generalized weakness Status: Acute (12) Loss of appetite Status: Acute (13) Multiple fractures of ribs of left side Status: Acute (14) Pleural effusion Status: Acute (15) Shortness of breath Status: Acute (16) Urinary tract infection Status: Acute Family History Malignancy in the mother, heart disease in the father Mother: cancer Social History Smoking Status: Current every day smoker Smokeless Tobacco Use: No Alcohol Use: none Drug Use: none Marital Status: Housing Status: lives with significant other Occupation Status: retired Allergies Coded Allergies: Oxycodone (Verified Adverse Reaction, Intermediate, NAUSEA, 12/10/15) Codeine (Verified Adverse Reaction, Mild, NAUSEA, 12/10/15) Current Inpatient Medications Current Inpatient Medications Medications (Trade) Dose Ordered Sig/[place] Route Start Time Stop Time Status Last Admin Dose Admin Miscellaneous Information (Pharmacist Discharge Med Rec Consult) 1 ea UD PRN N/A 07/23/16 07:00 08/22/16 06:59 Ondansetron HCl 4 mg 4 mg Q6H PRN IV 07/23/16 07:00 08/22/16 06:59 Acetaminophen 100 ml @ 400 mls/hr Q8H PRN IV 07/23/16 07:00 08/22/16 06:59 Pantoprazole Sodium/Syringe (Protonix Inj/ Syringe) 10 ml @ 5 mls/min DAILY@11 IV 07/23/16 11:00 08/22/16 10:59 Morphine Sulfate (MoRPHine SULFATE INJ) 2 mg Q2H PRN IV 07/23/16 07:00 08/06/16 06:59 Morphine Sulfate 4 mg 4 mg Q2H PRN IV 07/23/16 07:00 08/06/16 06:59 Methylprednisolone Sodium Succinate 60 mg/Syringe 0.96 ml @ 1.5 mls/min Q6H IV 07/23/16 10:00 08/22/16 06:59 Levofloxacin/Prmx (Levaquin / D5W/ Premixed D5W) 100 ml @ 100 mls/hr Q24H IV 07/23/16 10:00 07/30/16 09:59 Insulin Aspart (novoLOG ASPART) SLIDING SCALE If C... ACHS SC 07/23/16 11:00 08/22/16 10:59 Glucose (Glucose 40% Gel) UD PRN PO 07/23/16 07:00 08/22/16 06:59 Glucose (Glucose Chew Tab) 1 tabs UD PRN PO 07/23/16 07:00 08/22/16 06:59 Dextrose (Dextrose 50% 50ML Syringe) 50 ml UD PRN IV 07/23/16 07:00 08/22/16 06:59 Glucagon 1 mg 1 mg UD PRN SQ 07/23/16 07:00 08/22/16 06:59 Furosemide/Syringe (Lasix Inj/ Syringe) 4 ml @ 4 mls/min QAM IV 07/24/16 09:00 08/23/16 08:59 Ipratropium [place] (Atrovent 0.02% 0.5MG/2.5ML Neb) 0.5 mg Q6R INH 07/23/16 09:00 08/22/16 08:59 Levalbuterol (Xopenex 1.25MG/ 0.5ML Neb) 1.25 mg Q6R INH 07/23/16 09:00 08/22/16 08:59 Ipratropium [place] (Atrovent 0.02% 0.5MG/2.5ML Neb) 0.5 mg Q2H PRN INH 07/23/16 07:45 08/22/16 07:44 Levalbuterol (Xopenex 1.25MG/ 0.5ML Neb) 1.25 mg Q2H PRN INH 07/23/16 07:45 08/22/16 07:44 Heparin Sodium (Porcine) (Heparin Sq 5000 Unit/0.5ml) 5,000 unit Q12H SQ 07/23/16 10:00 08/22/16 09:59 Review of Systems The patient denies headache, fever, chills, vision change, hearing change, vertigo, chest pain, palpitations, dysuria, incontinence, myalgia, arthralgia, abnormal bleeding, swollen glands, depression or anxiety The patient does complain of shortness of breath and coughing A full 10 point review of systems was obtained from this patient and is as described in the history of present illness and otherwise listed above. Physical Exam Vital Signs (Past 24 Hrs): Date Time Temp Pulse Resp B/P Pulse Ox O2 Delivery O2 Flow Rate FiO2 07/23/16 07:50 105 24 148/86 99 07/23/16 06:24 100 24 177/91 100 Nasal Cannula 4.0 07/23/16 05:47 Nasal Cannula 07/23/16 05:46 95 Nasal Cannula 4.0 07/23/16 05:37 107 07/23/16 05:37 36.9 106 18 172/90 85 Nasal Cannula 2.0 The patient is a thin, elderly female. She is lying in bed in the ICU and appears mildly uncomfortable. She is alert and oriented to person and place only. Attention and concentration are normal. She is able to name objects, repeat phrases, and read simple text without much difficulty. She exhibits mild difficulty with delayed recall. Remote memory intact. Speech is notably dysarthric. Vocabulary normal. Visual reid full to confrontation. Visual acuity normal. It was equal round reactive to light and accommodation. Eye movements normal. No gaze preference. The patient is edentulous which makes assessment of facial droop somewhat difficult. However, there appears to be subtle left lower facial weakness. Facial sensation intact bilaterally. Palate elevates to midline. Tongue protrudes to midline. Shoulder shrug and hearing intact bilaterally. Sensation intact to vibration, light touch, temperature, and proprioception for all 4 limbs. Deep tendon reflexes are 2+ for the arms and legs bilaterally. Plantar responses are upgoing bilaterally. There is moderate dysmetria with finger to nose on the left. Perhaps very mild dysmetria of finger to nose on the right. Patient performs [id number] fairly well bilaterally. Ophthalmoscopic examination cannot be adequately completed. Unable to fully visualize patient's optic nerves and posterior elements due to small pupil size. Carotid pulses normal bilaterally, no bruits to auscultation. Musculoskeletal examination reveals normal strength for the right upper extremity as well as both lower extremities. There is mild weakness of the left upper extremity, however, especially with the proximal musculature. There is moderate weakness of the left hand and wrist extensors as well as mild weakness of left bibliographic services specialist. There is some impairment of fine finger movements on the left as well. Muscle tone normal throughout. No atrophy. No abnormal movements. No rest tremor. Gait cannot be tested due to safety concerns. Laboratory Results Past 24 Hours: 07/23/16 04:50 Red Blood Count 3.89, Mean Corpuscular Volume 81.0, Mean Corpuscular Hemoglobin 25.2, Mean Corpuscular Hemoglobin Concent 31.1, Mean Platelet Volume 8.8, Neutrophils (%) (Auto) 89.5, Lymphocytes (%) (Auto) 4.9, Monocytes (%) (Auto) 5.1, Eosinophils (%) (Auto) 0.0, Basophils (%) (Auto) 0.2, Neutrophils # (Auto) 12.02, Lymphocytes # (Auto) 0.66, Monocytes # (Auto) 0.69, Eosinophils # (Auto) 0.00, Basophils # (Auto) 0.03 07/23/16 04:50 Test 07/23/16 04:50 07/23/16 05:40 07/23/16 05:51 07/23/16 06:03 White Blood Count 13.44 K/uL (4.8-10.8) Red Blood Count 3.89 M/uL (4.2-5.4) Hemoglobin 9.8 g/dL (12.0-16.0) Hematocrit 31.5 % (37-47) Mean Corpuscular Volume 81.0 fL (80-100) Mean Corpuscular Hemoglobin 25.2 pg (25-34) Mean Corpuscular Hemoglobin Concent 31.1 g/dl (32-36) Platelet Count 288 K/uL (130-400) Mean Platelet Volume 8.8 fL (7.4-10.4) Neutrophils (%) (Auto) 89.5 % Lymphocytes (%) (Auto) 4.9 % Monocytes (%) (Auto) 5.1 % Eosinophils (%) (Auto) 0.0 % Basophils (%) (Auto) 0.2 % Neutrophils # (Auto) 12.02 K/uL (1.4-6.5) Lymphocytes # (Auto) 0.66 K/uL (1.2-3.4) Monocytes # (Auto) 0.69 K/uL (0.11-0.59) Eosinophils # (Auto) 0.00 K/uL (0-0.5) Basophils # (Auto) 0.03 K/uL (0-0.2) RDW Standard Deviation 54.3 fL (36.4-46.3) RDW Coefficient of Variation 18.2 % (11.5-14.5) Immature Granulocyte % (Auto) 0.3 % Immature Granulocyte # (Auto) 0.04 K/uL (0.00-0.02) Prothrombin Time 12.5 SECONDS (9.0-12.0) Prothromb Time International Ratio 1.2 (0.9-1.1) Activated Partial Thromboplast Time 33.5 SECONDS (21.0-31.0) Partial Thromboplastin Ratio 1.3 Anion Gap 6.0 mmol/L (3-11) Est Creatinine Clear Calc Drug Dose 49.3 ml/min Estimated GFR () 84.9 Estimated GFR (Non- 73.2 BUN/Creatinine Ratio 9.7 (10-20) Estimated Average Glucose 103 mg/dl Hemoglobin A1c 5.2 % (4.5-5.6) Calcium Level 8.3 mg/dl (8.5-10.1) Total Bilirubin 0.5 mg/dl (0.2-1) Direct Bilirubin 0.2 mg/dl (0-0.2) Aspartate Amino Transf (AST/SGOT) 22 U/L (15-37) Alanine Aminotransferase (ALT/SGPT) 14 U/L (12-78) Alkaline Phosphatase 92 U/L (45-117) Total Creatine Kinase 87 U/L (26-192) Creatine Kinase MB 1.6 ng/ml (0.5-3.6) Creatine Kinase MB Ratio 1.8 (0-3.0) Troponin I < 0.015 ng/ml (0-0.045) Total Protein 6.8 gm/dl (6.4-8.2) Albumin 3.4 gm/dl (3.4-5.0) Urine Opiates Screen NEG (NEG) Urine Methadone, Qualitative NEG (NEG) Urine Barbiturates NEG (NEG) Urine Phencyclidine (PCP) Level NEG (NEG) Ur Amphetamine/Methamphetamine NEG (NEG) MDMA (Ecstasy) Screen NEG (NEG) Urine Benzodiazepines Screen POS (NEG) Urine Cocaine Metabolite NEG (NEG) Urine Marijuana (THC) NEG (NEG) Bedside Glucose 96 mg/dl (70-90) Bedside Prothrombin Time INR 1.1 (0.9-1.1) Imaging See the history of present illness for description of her CT of the head obtained upon presentation. Also reviewed was this patient's previous brain MRI completed in November 2015 as well as her carotid duplex obtained at that time as well. Impression Suspected acute/subacute ischemic infarct presenting as prominent dysarthria and associated weakness/clumsiness of the left upper extremity. (Clumsy hand dysarthria lacunar stroke syndrome?) This patient has rather extensive, chronic , small vessel ischemic disease throughout her brain parenchyma including the brainstem. 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 She does not have idiopathic Parkinson's disease. She may have an element of vascular cognitive impairment as well. Her imaging is not suggestive of normal pressure hydrocephalus. She did not have evidence of a hemodynamically significant stenosis on a carotid duplex completed in November 2015. Plan I agree with admission for a full stroke evaluation which has already been initiated and will include MRI of the brain as well as MR angiography of the head and neck. This patient should probably be taking an antiplatelet medication. She does have a history of gastric ulcers and chronic anemia. However, the potential benefits of antiplatelet therapy for reducing stroke recurrence probably outweigh the risks at this time. If daily low-dose aspirin is not acceptable from a medical standpoint, then I would recommend Plavix 75 mg per day. Monitor patient's hypertension. Would treat for systolic blood pressure greater than 160 mmHg. Reasonable short-term goal 140-160 mmHg. Avoid hypotension. PT/OT/speech therapy consultations as ordered. Smoking cessation counseling. No further immediate recommendations. Please contact me if I may be of further assistance.
[2016-07-23] MEDS: PANTOprazole INJ 40 MG in SYRINGE 0 ML IV SCH (10:23)
[2016-07-23] MEDS: METHYLPREDNISOLONE IV 60 MG in SYRINGE 0 ML IV SCH ×3 (10:23→21:02)
[2016-07-23] MEDS: LEVOFLOXACIN / D5W 500 MG in PREMIXED IN D5W 100 ML IV SCH (10:24)
[2016-07-23] MEDS: HEPARIN SOD 5000 UNIT/0.5 ML CARP SQ SCH ×2 (10:27→21:02)
[2016-07-23] MEDS: INSULIN ASPART 100 UNITS/ML 3 ML PEN SC SCH ×3 (11:00→19:46)
[2016-07-23] MEDS: MoRPHine SULFATE 2 MG/ML CARP IV PRN ×3 (11:31→20:03)
[2016-07-23 13:35] LABS: CKMB/CK RATIO 1.7 (0-3.0)
[2016-07-23] MEDS: LEVALBUTEROL 1.25MG/0.5ML NEB INH SCH ×2 (15:19→19:51)
[2016-07-23] MEDS: IPRATROPIUM BROMIDE NEB SOLN 0.02% 2.5 ML VIAL INH SCH ×2 (15:19→19:51)
--- NOTE | 2016-07-23 15:23 | Progress Note ---
Progress Note Date of Service Jul 23, 2016. Progress Note 76-year-old white female admitted on 07/23/2016, because of possible Subacute right hemispheric CVA with left-sided weakness Possible Subacute right hemispheric CVA with left-sided weakness CT of the head shows small vessel disease, no acute findings. Will follow-up MRI of the brain combo, MRA of the neck combo, and MRA of the head without contrast. We'll follow a neurology consult Follow-up 2 -D echocardiogram with [facility]. PT OT and manager social media consultation Will continue aspirin and check fasting lipid panel and HbA1c Possible acute on chronic CHF is a patient Continue furosemide 40 mg IV now and every morning. Possible COPD exacerbation--place on Solu-Medrol 60 mg IV every 6 hours, ceftriaxone 1 g IV daily, levofloxacin 5 mg IV every 24 hours, and Xopenex / Atrovent nebulizer to use every 6 hours while awake and every 2 hours when necessary. Repeat a chest x-ray if needed GERD--change omeprazole 20 mg by mouth daily to pantoprazole 40 mg IV daily. Anxiety/depression--Lexapro and Xanax on hold while nothing by mouth. GI and DVT prophylaxis full code
[2016-07-23] MEDS ORDERED: ASPIRIN 81 MG ECTAB PO ONE (15:45)
--- NOTE | 2016-07-23 16:25 | Medical Student: [facility] ---
Med Student History & Physical Date & Time of Service: Jul 23, 2016 at 10:16 Chief Complaint: Shortness of breath, weakness, slurred speech Primary Care Physician: Pinky Aiken C.R.N.P History of Present Illness Source: patient, hospital records Pt is a 76 year old female with a history of COPD, CHF, chronic dysarthria, and gait disturbance who presented to the ED after a fall today while using her walker. She had had 3 days of L sided weakness and slurred speech, and she was noted to have L sided weakness and slurred speech in the ED. She denies any JASMINE or visual changes. She denies numbness. She has also had increasing dyspnea and cough as well as poor PO intake. She was seen for a similar presentation in November 2015, at which time she had difficulty with balance, recurrent falls, and difficulty with transfers, which had been ongoing for a few years. At that time she was also noted to have slow, dysarthric speech as well as some cognitive impairment. Her had reported worsening generalized weakness as well as a general decline in her health. Her presentation was thought to be most likely related to the extensive confluent periventricular white matter disease/chronic small vessel ischemia that was apparent on MRI (see below). Imaging was not suggestive of Normal Pressure Hydrocephalus. Vitamin E studies were WNL, and IgA and tissue transglutaminase were WNL, ruling out Celiac disease. B12 was WNL. RPR was nonreactive. She was seen in Neurology clinic in April 2016 for f/u of her gait disturbance, which was again thought to be related to chronic small vessel disease and chronic lacunar infarcts. She was to f/u as an outpatient in 6 months time. MRI OF THE BRAIN WITHOUT CONTRAST CLINICAL HISTORY: Stroke COMPARISON STUDY: 09/30/2015 FINDINGS: Sagittal T1, axial diffusion, proton density and T2 weighted axial, coronal FLAIR, and axial T1-weighted images were acquired. No intra or extra-axial mass lesions are visualized Axial diffusion-weighted images reveal no evidence of acute or subacute infarction. There is no evidence of ventricular dilatation. Proton density T2-weighted and FLAIR images reveal stable foci of increased FLAIR and T2 signal within the white matter, likely on a small vessel basis. There is an old lacunar infarct in the left basal ganglia. There are no abnormal flow voids. There is a 19 mm left parotid gland mass. This remain stable. IMPRESSION: 1. No acute intracranial findings 2. No evidence of acute or subacute infarction 3. Stable 19 mm left parotid mass 4. Foci of increased T2 signal within the white matter, likely on a small vessel basis Electronically signed by: Manny Urbano M.D. 12/10/2015 1:30 PM ULTRASOUND OF THE CAROTID ARTERIES CLINICAL HISTORY: slurred speech POSSIBLE STROKE COMPARISON STUDY: None. TECHNIQUE: Real-time, grayscale, and color Doppler sonography of the carotid arteries was performed. Imaging reviewed in the transverse and longitudinal planes. NASCET criteria was utilized for stenosis calcification. FINDINGS: There is minimal atherosclerotic plaque present . The peak systolic velocity within the right internal carotid artery is 74 cm/sec. The systolic velocity ratio of right internal to common carotid artery is 0.8. The peak systolic velocity within the left internal carotid artery is 67 cm/sec. The systolic velocity ratio left internal to common carotid artery is 1.0. Antegrade flow is seen in the vertebral arteries. The external carotid arteries are patent. Blood pressure in the right arm measured 148 mm/Hg. Blood pressure in the left arm measured 147 mm/Hg. IMPRESSION: No evidence of hemodynamically significant carotid stenosis. Electronically signed by: Manny Urbano M.D. 12/10/2015 1:00 PM Past Medical/Surgical History Medical Problems: (1) Age related osteoporosis Status: Chronic (2) Anemia Status: Chronic (3) Anxiety disorder Status: Chronic (4) CHF (congestive heart failure) Status: Chronic (5) Compression fracture Status: Chronic (6) Depression Status: Chronic (7) Fall Status: Resolved (8) Fall at home Status: Resolved (9) Gastric ulcer Status: Chronic (10) Glaucoma Status: Chronic (11) Hypertension Status: Chronic (12) Hypertension Nos Status: Chronic (13) Osteoporosis Status: Chronic (14) Pancreatitis Status: Chronic (15) Parkinsonism Status: Chronic (16) Peptic ulcer disease Status: Chronic (17) Respiratory failure Status: Chronic (18) Right hip pain Status: Resolved (19) Stomach ulcer Surgical Problems: (1) Hx of appendectomy Status: Resolved (2) S/P colonoscopy Status: Resolved (3) S/P endoscopy Status: Resolved Family History Mother: cancer Social History Smoking Status: Former Smoker Smokeless Tobacco Use: No Alcohol Use: none Drug Use: none Marital Status: Housing status: lives with significant other Occupational Status: retired Immunizations History of Influenza Vaccine: No History of Tetanus Vaccine?: Yes Tetanus Immunization Date: Oct 26, 2006 History of Pneumococcal: No History of Hepatitis B Vaccine: No Allergies Coded Allergies: Oxycodone (Verified Adverse Reaction, Intermediate, NAUSEA, 12/10/15) Codeine (Verified Adverse Reaction, Mild, NAUSEA, 12/10/15) Medications Acetaminophen (Tylenol), 500 MG PO Q4 PRN for Pain Alprazolam (Xanax), 1 MG PO Q8 PRN for Anxiety Cholecalciferol (Vitamin D3), 1 CAP PO DAILY Escitalopram Oxalate (Escitalopram Oxalate), 10 MG PO DAILY Fluticasone Prop/Salmeterol (Advair Diskus 250/50 60 Dose), 1 PUFF INH BID Ipratropium-Albuterol (Combivent Respimat), 1 PUFF INH Q6H Magnesium Oxide (Mag-Ox), 400 MG PO BID Metoprolol Succinate (Metoprolol Succinate ER), 25 MG PO DAILY Multiple Vitamin (Multivitamin), 1 TAB PO QAM Omeprazole (Prilosec), 20 MG PO DAILY Potassium Chloride Microencaps (Potassium Chloride Er), 20 MEQ PO DAILY Ranitidine (Zantac), 150 MG PO DAILY Review of Systems Constitutional: + weakness Abdomen: + nausea Neurologic: + balance problems, + weakness, No numbness/tingling Physical Exam Vital Signs (24 Hours) Date Time Temp Pulse Resp B/P Pulse Ox O2 Delivery O2 Flow Rate FiO2 07/23/16 08:30 37.1 104 29 156/88 94 Nasal Cannula 4.0 07/23/16 07:50 105 24 148/86 99 07/23/16 06:24 100 24 177/91 100 Nasal Cannula 4.0 07/23/16 05:47 Nasal Cannula 07/23/16 05:46 95 Nasal Cannula 4.0 07/23/16 05:37 107 07/23/16 05:37 36.9 106 18 172/90 85 Nasal Cannula 2.0 General Appearance: + cachetic, + pertinent finding (Thin, elderly patient initially asleep, awakes to voice. NC in place. Frequent cough noted. ) Head: normocephalic, atraumatic Eyes: PERRL, EOMI ENT: hearing grossly normal, + pertinent finding (Pt is edentulous) Neck: no carotid bruits Respiratory/Chest: no respiratory distress Neurologic exam: Dysarthric speech is noted. Pt is able to name objects, read sentences, and follow commands. Strength of the wrist extensors, wrist flexors, biceps, triceps, deltoids and trapezius muscles was 4 / 5 in the LUE and 5/5 in the RUE. L hand crimp setter is weak compared to the R. Strength of the hip flexors, quadriceps, hamstrings, ankle flexors, and ankle extensors 5 / 5 bilaterally, symmetrical. Sensation to light touch, temperature, and vibration is normal in bilateral upper and lower extremities. Triceps, biceps, and brachioradialis reflexes 2+ and symmetric. Patellar and Achilles reflexes 2+ and symmetric. Toe was upgoing bilaterally on Babinski Reflex Testing. There was dysmetria on [id number] testing bilaterally, worse on the L. Pt is unable to perform rapid alternating movements with the L fingers. No resting or intention tremor. There was no pronator drift. Heel to jean is normal bilaterally. Romberg and gait testing were deferred due to fall risk. Cranial nerves: I: Not tested II: PERRL, although pupils were small, so fundoscopic examination was deferred. Visual reid intact. III, IV, : EOMI, no nystagmus. V: Symmetric sensation to light touch over the distribution of CN V. VII: Symmetrical wrinkling of the forehead, eye closure, and cheek expansion. There is a subtle facial droop involving the L corner of the lips, although the corner of the lips does elevate with smile. Exam is suboptimal as the pt is edentulous. VIII: hearing symmetric. IX and X: uvula midline XI: trapezius strength is 5/5 and symmetric XII: tongue protrudes midline Diagnostics Laboratory Results Results Past 24 Hours Test 07/23/16 04:50 07/23/16 05:40 07/23/16 05:51 07/23/16 06:03 Range/Units White Blood Count 13.44 4.8-10.8 K/uL Red Blood Count 3.89 4.2-5.4 M/uL Hemoglobin 9.8 12.0-16.0 g/dL Hematocrit 31.5 37-47 % Mean Corpuscular Volume 81.0 80-100 fL Mean Corpuscular Hemoglobin 25.2 25-34 pg Mean Corpuscular Hemoglobin Concent 31.1 32-36 g/dl Platelet Count 288 130-400 K/uL Mean Platelet Volume 8.8 7.4-10.4 fL Neutrophils (%) (Auto) 89.5 % Lymphocytes (%) (Auto) 4.9 % Monocytes (%) (Auto) 5.1 % Eosinophils (%) (Auto) 0.0 % Basophils (%) (Auto) 0.2 % Neutrophils # (Auto) 12.02 1.4-6.5 K/uL Lymphocytes # (Auto) 0.66 1.2-3.4 K/uL Monocytes # (Auto) 0.69 0.11-0.59 K/uL Eosinophils # (Auto) 0.00 0-0.5 K/uL Basophils # (Auto) 0.03 0-0.2 K/uL RDW Standard Deviation 54.3 36.4-46.3 fL RDW Coefficient of Variation 18.2 11.5-14.5 % Immature Granulocyte % (Auto) 0.3 % Immature Granulocyte # (Auto) 0.04 0.00-0.02 K/uL Prothrombin Time 12.5 9.0-12.0 SECONDS Prothromb Time International Ratio 1.2 0.9-1.1 Activated Partial Thromboplast Time 33.5 21.0-31.0 SECONDS Partial Thromboplastin Ratio 1.3 Sodium Level 131 136-145 mmol/L Potassium Level 4.0 3.5-5.1 mmol/L Chloride Level 94 98-107 mmol/L Carbon Dioxide Level 31 21-32 mmol/L Anion Gap 6.0 3-11 mmol/L Blood Urea Nitrogen 8 7-18 mg/dl Creatinine 0.79 0.60-1.20 mg/dl Est Creatinine Clear Calc Drug Dose 49.3 ml/min Estimated GFR () 84.9 Estimated GFR (Non- 73.2 BUN/Creatinine Ratio 9.7 10-20 Random Glucose 94 70-99 mg/dl Estimated Average Glucose 103 mg/dl Hemoglobin A1c 5.2 4.5-5.6 % Calcium Level 8.3 8.5-10.1 mg/dl Total Bilirubin 0.5 0.2-1 mg/dl Direct Bilirubin 0.2 0-0.2 mg/dl Aspartate Amino Transf (AST/SGOT) 22 15-37 U/L Alanine Aminotransferase (ALT/SGPT) 14 12-78 U/L Alkaline Phosphatase 92 45-117 U/L Total Creatine Kinase 87 26-192 U/L Creatine Kinase MB 1.6 0.5-3.6 ng/ml Creatine Kinase MB Ratio 1.8 0-3.0 Troponin I < 0.015 0-0.045 ng/ml Total Protein 6.8 6.4-8.2 gm/dl Albumin 3.4 3.4-5.0 gm/dl Urine Opiates Screen NEG NEG Urine Methadone, Qualitative NEG NEG Urine Barbiturates NEG NEG Urine Phencyclidine (PCP) Level NEG NEG Ur Amphetamine/Methamphetamine NEG NEG MDMA (Ecstasy) Screen NEG NEG Urine Benzodiazepines Screen POS NEG Urine Cocaine Metabolite NEG NEG Urine Marijuana (THC) NEG NEG Bedside Glucose 96 70-90 mg/dl Bedside Prothrombin Time INR 1.1 0.9-1.[address] SCAN OF THE BRAIN WITHOUT IV CONTRAST CLINICAL HISTORY: Strokelike symptoms. COMPARISON STUDY: CT of the brain dated 12/10/2015. MRI of the brain dated 12/10/2015. TECHNIQUE: Unenhanced axial CT scan of the brain is performed from the vertex to the skull base. CT DOSE: 729.78 mGycm FINDINGS: Brain parenchyma: There are age-related involutional changes noting moderate patchy subcortical and periventricular microangiopathic change. There is no hemorrhage, mass effect, or evidence of acute territorial ischemia by CT criteria. Harvey-white matter is preserved. No extra-axial fluid collection is seen. Ventricles, sulci, cisterns: Prominent secondary to involutional change. Intracranial vasculature: There is atherosclerotic calcification of the cavernous carotid and vertebral arteries. Calvarium: Unremarkable. Sinuses and mastoids: Mucosal thickening is seen within a right posterior ethmoid sinus. The remaining paranasal sinuses are clear. The mastoid air cells are well pneumatized. Orbits: The bony orbits are grossly intact. There is a right ocular lens implant. Soft tissues: A 2.0 cm nodule in the left parotid gland is unchanged. IMPRESSION: 1. Senescent changes as above with no hemorrhage, mass effect, or evidence of acute territorial ischemia by CT criteria. 2. A 2.0 cm left parotid nodule is unchanged. Electronically signed by: Dick Vargas M.D. 07/23/2016 7:11 AM SINGLE VIEW CHEST CLINICAL HISTORY: Dyspnea. FINDINGS: An AP, portable, upright chest radiograph is compared to study dated 05/22/2016 and correlated with chest CT dated 03/16/2015. The examination is significantly degraded by portable technique and patient rotation. The cardiomediastinal silhouette is unremarkable. There is atherosclerotic calcification of the thoracic aorta. Advanced emphysema and chronic interstitial thickening/nodularity are similar to previous. There is extensive biapical scarring. Patchy airspace opacities are seen at the right lung base. There is no large pleural effusion or pneumothorax. The skeletal structures are osteopenic. The bony thorax is grossly intact. IMPRESSION: 1. Advanced emphysema. 2. There are airspace opacities present at the right lung base. This could represent atelectasis, aspiration pneumonitis, and/or developing pneumonia. Clinical correlation will be required. Electronically signed by: Dick Vargas M.D. 07/23/2016 7:31 AM Impression Assessment and Plan ASSESSMENT: Pt is a 76 year old female with a history of COPD, CHF, chronic dysarthria, and gait disturbance who presented to the ED after a fall in the setting of 3 days of slurred speech and L sided weakness. She had a very similar presentation in November 2015, which was thought to be related to chronic small vessel ischemic disease vs extensive confluent periventricular white matter disease. This could account for her acute presentation from a neurological standpoint. This acute dysarthria, LUE dysmetria, and LUE weakness along with her chronic ataxia could also be consistent with a new R sided lacunar infarct syndrome such as ataxic hemiparesis (which would correlate to involvement of the internal capsule, basal yarelis, and thalamus) or dysarthria-clumsy hand syndrome ( which would involve the basal yarelis, internal capsule, or sumner radiata). She does have a history of an old lacunar infarct in the L basal ganglia, but this would correlate to R sided weakness, which she does not have. An acute R MCA stroke could also explain her LUE weakness, but there is no aphasia, making this less likely. Her dysarthria would correlate more to a brainstem localization. Normal pressure hydrocephalous is considered given her cognitive decline and ataxia, but this is less likely given no incontinence. Furthermore, MRI from November showed no ventriculomegaly. Vitamin E deficiency could account for her ataxia, but this was ruled out in November. RPR was non-reactive, ruling out tabes dorsalis as the cause of her ataxia. Celiac disease was also ruled out as the cause of her ataxia with normal IgA and tissue transglutaminase. Parkinson's disease is considered given reports of difficulties with transfers ( possible bradykinesia) and balance difficulties, but there is no tremor, rigidity, or mask-like facies, making this less likely. The pt is currently admitted with CHF vs COPD exacerbation and has mild hyponatremia of 131. None of these would be expected to result in focal neurological deficits that were seen on exam. PLAN: 1. Stroke workup - Obtain MRI Brain, MRA Head, MRA Neck. Consider echocardiogram to assess for cardioembolic etiologies. This would also be useful to assess for worsening of her CHF. No need to repeat carotid US as this was done in November and showed no significant carotid stenosis. - Allow permissive hypertension - Keep BP below 220/120 and avoid hypotension. intermediate card tender SBP target will be 120-140. 2. Will begin ASA 81 mg daily. She has a history of peptic ulcer disease, but has no current GI bleeding, and the benefit of acute recurrent stroke prevention outweighs risks of GI bleeding. 3. Plan to start atorvastatin 80 mg daily with LDL goal of less than 70. 4. Consider starting fluoxetine to improve motor function. 5. Consult PT/OT/Speech therapy. Advanced Directives Existing Advance Directive: No Existing Living Will: No Existing Power of Credit Union Field Examiner: Yes
--- NOTE | 2016-07-23 18:01 | ECHOCARDIOGRAM REPORT ---
*NOTICE TO RECEIVING CONSTITUTION PARTY AGENCY This information is strictly Confidential and protected under [place] law. [place] law prohibits you from making any further disclosure of this information unless further disclosure is expressly permitted by the written consent of the person to whom it pertains or is authorized by law. A general authorization for the release of medical or other information is not sufficient for this purpose. Hospital accepts no responsibility if the information is made available to any other person, INCLUDING THE PATIENT. Interpretation Summary * The study was technically difficult. * Hyperdynamic biventricular systolic function. Type 1 left ventricular diastolic dysfunction. No significant valve abnormalities. Normal chamber dimensions. * -- Conclusions -- * Aortic valve sclerosis mild, without significant aortic valvular stenosis. Procedure Details * A complete two-dimensional transthoracic echocardiogram was performed (2D, M-mode, Doppler and color flow Doppler). Left Ventricle * The left ventricle is normal in size. * The left ventricle is not well visualized. * There is normal left ventricular wall thickness. * Ejection Fraction = >70 %. * The left ventricle is hyperdynamic. * A full diastolic examination was done with clinical findings of Class I diastolic dysfunction. * No regional wall motion abnormalities noted. Right Ventricle * The right ventricle is normal size. * The right ventricle is hyperdynamic. Atria * The left atrial size is normal. * Right atrial size is normal. * No ASD detected; PFO is not assessed. Mitral Valve * There is mild mitral annular calcification. * The mitral valve is not well visualized. * There is no mitral valve stenosis. * There is no mitral regurgitation noted. Tricuspid Valve * The tricuspid valve is not well visualized. * There is trace tricuspid regurgitation. Aortic Valve * The aortic valve is trileaflet. * The aortic valve opens well. * Aortic valve sclerosis mild, without significant aortic valvular stenosis. * No aortic regurgitation is present. Pulmonic Valve * The pulmonic valve is not well visualized. * The pulmonary valve is inadequately visualized, but the Doppler data is adequate for interpretation. * There is no pulmonic valvular stenosis. * Trace pulmonic valvular regurgitation. Great Vessels * The aortic root is normal size. Pericardium/Pleural * There is no pericardial effusion. Great Vessels * Normal inferior vena cava diameter and respiratory variation suggests normal central venous pressure. MMode 2D Measurements and Calculations IVSd 1.0 cm LVIDd 2.9 cm LVIDs 1.9 cm LVPWd 1.1 cm IVS/LVPW 0.92 FS 34.0 % EDV(Teich) 32.1 ml ESV(Teich) 11.3 ml EF(Teich) 64.6 % EDV(cubed) 24.3 ml ESV(cubed) 7.0 ml EF(cubed) 71.2 % LV mass(C)d 86.1 grams LV mass(C)dI 55.3 grams/m\S\2 SV(Teich) 20.7 ml SI(Teich) 13.3 ml/m\S\2 SV(cubed) 17.3 ml SI(cubed) 11.1 ml/m\S\2 Ao root diam 3.5 cm Ao root area 9.8 cm\S\2 ACS 1.8 cm LA dimension 2.1 cm asc Aorta Diam 3.0 cm LA/Ao 0.60 LVOT diam 2.0 cm LVOT area 3.1 cm\S\2 LVAd ap4 16.1 cm\S\2 LVLd ap4 6.5 cm EDV(MOD-sp4) 31.4 ml EDV(sp4-el) 33.8 ml LVAs ap4 6.9 cm\S\2 LVLs ap4 5.1 cm ESV(MOD-sp4) 8.4 ml ESV(sp4-el) 8.0 ml EF(MOD-sp4) 73.3 % EF(sp4-el) 76.4 % LVAd ap2 15.3 cm\S\2 LVLd ap2 6.7 cm EDV(MOD-sp2) 28.7 ml EDV(sp2-el) 29.8 ml LVAs ap2 7.4 cm\S\2 LVLs ap2 5.0 cm ESV(MOD-sp2) 9.0 ml ESV(sp2-el) 9.2 ml EF(MOD-sp2) 68.7 % EF(sp2-el) 69.2 % LVLd %diff 1.9 % EDV(MOD-bp) 29.9 ml LVLs %diff -1.86 % ESV(MOD-bp) 8.6 ml EF(MOD-bp) 71.2 % SV(MOD-sp4) 23.0 ml SI(MOD-sp4) 14.8 ml/m\S\2 SV(MOD-sp2) 19.7 ml SI(MOD-sp2) 12.7 ml/m\S\2 SV(MOD-bp) 21.3 ml SI(MOD-bp) 13.7 ml/m\S\2 SV(sp4-el) 25.8 ml SI(sp4-el) 16.6 ml/m\S\2 SV(sp2-el) 20.6 ml SI(sp2-el) 13.3 ml/m\S\2 Doppler Measurements and Calculations MV E max stefan 86.8 cm/sec MV A max stefan 135.3 cm/sec MV E/A 0.64 MV dec time 0.32 sec LV V1 max PG 9.7 mmHg LV V1 max 154.6 cm/sec PA V2 max 122.2 cm/sec PA max PG 6.0 mmHg PA acc slope 810.3 cm/sec\S\2 PA acc time 0.12 sec PI max stefan 156.1 cm/sec PI max PG 9.7 mmHg PI dec slope 262.1 cm/sec\S\2 PI P1/2t 174.4 msec TR max stefan 226.7 cm/sec PA pr(Accel) 25.1 mmHg
[2016-07-23 21:19] LABS: CKMB/CK RATIO 1.8 (0-3.0)
--- NOTE | 2016-07-23 22:37 | DIAGNOSTIC IMAGING REPORT ---
Brain MRA HISTORY: Mental status change Stroke - Attention to [place] TECHNIQUE: 3-D [id number] MRA of the brain was performed without contrast. COMPARISON STUDY: None. FINDINGS: Visualized intracranial internal carotid arteries, distal vertebral arteries, and basilar artery are widely patent. There is no significant stenosis, occlusion, or aneurysm seen within the bilateral ACAs, MCAs, or automation engineering manager. IMPRESSION: No significant stenosis, occlusion, or aneurysm within the [place]. Electronically signed by: Michael Jones M.D. 07/23/2016 10:35 PM Dictated Date/Time: 07/23/2016 10:34 PM
[2016-07-24] VITALS (14 sets, daily range): BP systolic 116–162; BP diastolic 73–95; PULSE 62–99; TEMP 36.5–36.9; O2SAT 92–100
[2016-07-24] MEDS ORDERED: GADAVIST IV PRN (01:00)
[2016-07-24] MEDS: IPRATROPIUM BROMIDE NEB SOLN 0.02% 2.5 ML VIAL INH SCH ×4 (01:45→19:48)
[2016-07-24] MEDS: LEVALBUTEROL 1.25MG/0.5ML NEB INH SCH ×4 (01:45→19:48)
[2016-07-24] MEDS: METHYLPREDNISOLONE IV 60 MG in SYRINGE 0 ML IV SCH ×3 (04:00→15:55)
[2016-07-24 06:57] LABS: COMPLETE YES; IG% 0.3 %; LYMPH % 4.3 %; LYMPH ABS # 0.71 K/uL (1.2-3.4); MEAN CELL VOLUME 80.4 fL (80-100); MEAN CORPUSCULAR HEMOGLOBIN 25.1 pg (25-34); MEAN CORPUSCULAR HGB CONC 31.2 g/dl (32-36); MEAN PLATELET VOLUME 8.8 fL (7.4-10.4); MONO % 1.8 %; NEUT % 93.6 %; PLATELET COUNT 278 K/uL (130-400); RED BLOOD COUNT 4.23 M/uL (4.2-5.4); WHITE BLOOD COUNT 16.38 K/uL (4.8-10.8)
--- NOTE | 2016-07-24 07:13 | DIAGNOSTIC IMAGING REPORT ---
MRI OF THE BRAIN COMBO CLINICAL HISTORY: Fall. Stroke like symptoms. COMPARISON STUDY: CT of the brain dated 07/23/2016. TECHNIQUE: MRI of the brain was performed utilizing various T1 and T2-weighted sequences in the axial, sagittal, and coronal planes. Contrast-enhanced sequences were acquired following the administration of 5 cc of Gadavist. Examination is modestly degraded by motion artifact. FINDINGS: Brain parenchyma: There are age-related involutional changes noting moderate patchy subcortical and periventricular microangiopathic disease. There is no hemorrhage or mass effect. There is no restricted diffusion to suggest acute ischemia. No enhancing mass lesion is identified on the postcontrast images. Harvey-white matter differentiation is preserved. No extra-axial fluid collection is seen. The cerebellar tonsils are normal in configuration. Ventricles, sulci, and cisterns: Prominent secondary to involutional change. Pituitary and sella: Partially empty sella is incidentally noted. Intracranial vasculature: Normal flow voids are maintained at the skull base. Orbits: The bony orbits are grossly intact. Orbital contents are normal in appearance noting a right ocular lens implant. Sinuses and mastoids: Clear. Calvarium: Unremarkable. Cervical cord: Partially visualized cervical spinal cord is normal in morphology and signal intensity. Soft tissues: A 2.0 cm nodule is again seen in the left parotid gland. IMPRESSION: 1. Senescent changes as above with no acute intracranial abnormality. 2. Unchanged appearance of a 2.0 cm nodule in the left parotid gland. Electronically signed by: Dikc Vargas M.D. 07/24/2016 7:11 AM Dictated Date/Time: 07/24/2016 7:07 AM
--- NOTE | 2016-07-24 07:26 | DIAGNOSTIC IMAGING REPORT ---
MR ANGIOGRAM OF THE NECK COMBO CLINICAL HISTORY: Strokelike symptoms. COMPARISON STUDY: Carotid artery ultrasound dated 12/10/2015. TECHNIQUE: Axial 2-D [id number] MR angiography of the neck is performed. Subsequently, following the IV administration of 5 cc of Gadavist coronal MR angiogram of the neck was performed to corroborate the findings. 3-D reformats are created and assessed. All measurements were calculated based on NASCET criteria. FINDINGS: Visualized portions of the thoracic aorta are normal in caliber. The arch demonstrates standard 3-vessel anatomy. The subclavian arteries are widely patent bilaterally. The right common carotid artery is widely patent, as are the right internal and external carotid arteries. The left common carotid artery is widely patent, as are the left internal and external carotid arteries. The vertebral arteries are widely patent bilaterally and appear codominant. The partially visualized intracranial vessels are within normal limits. IMPRESSION: Unremarkable MR angiogram of the neck. Electronically signed by: Dick Vargas M.D. 07/24/2016 7:25 AM Dictated Date/Time: 07/24/2016 7:23 AM
[2016-07-24 07:32] LABS: BUN/CREATININE RATIO 23.2 (10-20); CALCIUM 8.6 mg/dl (8.5-10.1); CHOLESTEROL/HDL RATIO 2.9; CREATININE 0.87 mg/dl (0.60-1.20)
[2016-07-24] MEDS: INSULIN ASPART 100 UNITS/ML 3 ML PEN SC SCH ×4 (08:15→20:58)
[2016-07-24] MEDS: ASPIRIN 81 MG ECTAB PO SCH (08:36)
[2016-07-24] MEDS: MoRPHine SULFATE 2 MG/ML CARP IV PRN (08:37)
[2016-07-24] MEDS ORDERED: NURSING VERBAL MED ORDER ONE (08:45)
[2016-07-24] MEDS: FUROSEMIDE INJ 40 MG in SYRINGE 0 ML IV SCH (08:45)
[2016-07-24] MEDS: METOPROLOL TARTRATE 25 MG TAB PO SCH ×2 (09:20→20:50)
[2016-07-24] MEDS: HEPARIN SOD 5000 UNIT/0.5 ML CARP SQ SCH ×2 (09:52→20:52)
--- NOTE | 2016-07-24 10:05 | Neurology Progress Notes ---
Neurology Progress Note Date of Service Jul 24, 2016. Subjective Follow-up for dysarthria and left upper extremity weakness The patient reports significant improvement in her symptoms compared with yesterday. She denies significant problems with speech at this time and feels as if her left upper extremity weakness is markedly improved as well. She denies headache or changes in vision. Objective Date Time Temp Pulse Resp B/P Pulse Ox O2 Delivery O2 Flow Rate FiO2 07/24/16 08:00 94 16 96 Nasal Cannula 3.0 07/24/16 08:00 Nasal Cannula 2.0 07/24/16 07:43 36.9 95 18 123/79 92 Nasal Cannula 2.0 07/24/16 04:45 36.6 99 18 149/83 93 Nasal Cannula 2.0 07/24/16 04:00 92 Nasal Cannula 2.0 07/24/16 01:45 84 16 93 Nasal Cannula 2.0 07/24/16 00:00 36.5 86 19 116/74 92 Nasal Cannula 2.0 07/24/16 00:00 92 Nasal Cannula 2.0 07/23/16 20:00 Nasal Cannula 2.0 07/23/16 20:00 36.6 93 18 127/78 94 Nasal Cannula 2.0 07/23/16 19:51 102 22 95 Nasal Cannula 2.0 07/23/16 16:00 37.3 88 18 118/69 92 Nasal Cannula 2.0 07/23/16 16:00 Nasal Cannula 2.0 07/23/16 15:20 94 18 99 Nasal Cannula 3.0 07/23/16 12:00 99 Nasal Cannula 4.0 07/23/16 12:00 37.0 101 26 124/78 99 Nasal Cannula 4.0 07/23/16 11:58 101 27 Last 24 Hours Test 07/23/16 12:29 07/23/16 12:58 07/23/16 15:46 07/23/16 19:44 Bedside Glucose 116 mg/dl 143 mg/dl 143 mg/dl Total Creatine Kinase 90 U/L Creatine Kinase MB 1.5 ng/ml Creatine Kinase MB Ratio 1.7 Troponin I < 0.015 ng/ml Test 07/23/16 20:45 07/24/16 06:37 07/24/16 07:25 Total Creatine Kinase 114 U/L Creatine Kinase MB 2.0 ng/ml Creatine Kinase MB Ratio 1.8 Troponin I < 0.015 ng/ml White Blood Count 16.38 K/uL Red Blood Count 4.23 M/uL Hemoglobin 10.6 g/dL Hematocrit 34.0 % Mean Corpuscular Volume 80.4 fL Mean Corpuscular Hemoglobin 25.1 pg Mean Corpuscular Hemoglobin Concent 31.2 g/dl Platelet Count 278 K/uL Mean Platelet Volume 8.8 fL Neutrophils (%) (Auto) 93.6 % Lymphocytes (%) (Auto) 4.3 % Monocytes (%) (Auto) 1.8 % Eosinophils (%) (Auto) 0.0 % Basophils (%) (Auto) 0.0 % Neutrophils # (Auto) 15.33 K/uL Lymphocytes # (Auto) 0.71 K/uL Monocytes # (Auto) 0.29 K/uL Eosinophils # (Auto) 0.00 K/uL Basophils # (Auto) 0.00 K/uL RDW Standard Deviation 53.8 fL RDW Coefficient of Variation 18.1 % Immature Granulocyte % (Auto) 0.3 % Immature Granulocyte # (Auto) 0.05 K/uL Sodium Level 134 mmol/L Potassium Level 4.0 mmol/L Chloride Level 95 mmol/L Carbon Dioxide Level 31 mmol/L Anion Gap 8.0 mmol/L Blood Urea Nitrogen 20 mg/dl Creatinine 0.87 mg/dl Est Creatinine Clear Calc Drug Dose 44.7 ml/min Estimated GFR () 75.5 Estimated GFR (Non- 65.2 BUN/Creatinine Ratio 23.2 Random Glucose 124 mg/dl Calcium Level 8.6 mg/dl Triglycerides Level 111 mg/dl Cholesterol Level 137 mg/dl HDL Cholesterol 47 mg/dl LDL Cholesterol, Calculated 68 mg/dl VLDL Cholesterol, Calculated 22 mg/dl Cholesterol/HDL Ratio 2.9 Bedside Glucose 136 mg/dl Imaging: I reviewed the images and radiologist's interpretation of the recently completed MRI of the brain as well as MR angiography of the head and neck. The study reveals moderate, patchy, periventricular, subcortical, and brainstem T2/ flair hyperintensities consistent with chronic cerebrovascular disease. The findings are not significantly different compared with her previous MRI. There is no evidence of acute or subacute stroke. No evidence of a significant stenotic lesion on angiography or other vascular abnormality. An echocardiogram was negative for PFO evidence of an obvious cardioembolic source. Exam: The patient is lying comfortably in bed, no acute distress. She is alert and oriented to person and place. She exhibits normal attention and concentration. She is able to name objects and repeat phrases. Her speech is slightly dysarthric although considerably improved compared with yesterday. Vocabulary normal. Visual reid full to confrontation. Pupils equal round reactive to light and accommodation. Eye movements normal. No nystagmus. There is no facial droop. Palate elevates to midline. Tongue protrudes to midline. Shoulder shrug and hearing intact. There is mild dysmetria with finger to nose bilaterally although slightly greater for the left. Patient able to perform heel to jean bilaterally. Musculoskeletal examination reveals normal strength for the arms and legs bilaterally. No evidence for a gross hemiparesis at this time. Current Inpatient Medications Medications (Trade) Dose Ordered Sig/[place] Route Start Time Stop Time Status Last Admin Dose Admin Miscellaneous Information (Pharmacist Discharge Med Rec Consult) 1 ea UD PRN N/A 07/23/16 07:00 08/22/16 06:59 Ondansetron HCl 4 mg 4 mg Q6H PRN IV 07/23/16 07:00 08/22/16 06:59 Acetaminophen 100 ml @ 400 mls/hr Q8H PRN IV 07/23/16 07:00 08/22/16 06:59 Pantoprazole Sodium/Syringe (Protonix Inj/ Syringe) 10 ml @ 5 mls/min DAILY@11 IV 07/23/16 11:00 08/22/16 10:59 07/23/16 10:23 5 MLS/MIN Morphine Sulfate (MoRPHine SULFATE INJ) 2 mg Q2H PRN IV 07/23/16 07:00 08/06/16 06:59 07/24/16 08:37 2 MG Morphine Sulfate 4 mg 4 mg Q2H PRN IV 07/23/16 07:00 08/06/16 06:59 Methylprednisolone Sodium Succinate 60 mg/Syringe 0.96 ml @ 1.5 mls/min Q6H IV 07/23/16 10:00 08/22/16 06:59 07/24/16 09:50 1.5 MLS/MIN Levofloxacin/Prmx (Levaquin / D5W/ Premixed D5W) 100 ml @ 100 mls/hr Q24H IV 07/23/16 10:00 4/17/17 09:59 07/23/16 10:24 100 MLS/HR Insulin Aspart (novoLOG ASPART) SLIDING SCALE If C... ACHS SC 07/23/16 11:00 08/22/16 10:59 Glucose (Glucose 40% Gel) UD PRN PO 07/23/16 07:00 08/22/16 06:59 Glucose (Glucose Chew Tab) 1 tabs UD PRN PO 07/23/16 07:00 08/22/16 06:59 Dextrose (Dextrose 50% 50ML Syringe) 50 ml UD PRN IV 07/23/16 07:00 08/22/16 06:59 Glucagon 1 mg 1 mg UD PRN SQ 07/23/16 07:00 08/22/16 06:59 Furosemide/Syringe (Lasix Inj/ Syringe) 4 ml @ 4 mls/min QAM IV 07/24/16 09:00 08/23/16 08:59 07/24/16 08:45 4 MLS/MIN Ipratropium [place] (Atrovent 0.02% 0.5MG/2.5ML Neb) 0.5 mg Q6R INH 07/23/16 09:00 08/22/16 08:59 07/24/16 07:05 0.5 MG Levalbuterol (Xopenex 1.25MG/ 0.5ML Neb) 1.25 mg Q6R INH 07/23/16 09:00 08/22/16 08:59 07/24/16 07:05 1.25 MG Ipratropium [place] (Atrovent 0.02% 0.5MG/2.5ML Neb) 0.5 mg Q2H PRN INH 07/23/16 07:45 08/22/16 07:44 Levalbuterol (Xopenex 1.25MG/ 0.5ML Neb) 1.25 mg Q2H PRN INH 07/23/16 07:45 08/22/16 07:44 Heparin Sodium (Porcine) (Heparin Sq 5000 Unit/0.5ml) 5,000 unit Q12H SQ 07/23/16 10:00 08/22/16 09:59 07/24/16 09:52 5,000 UNIT Aspirin (Ecotrin Tab) 81 mg QAM PO 07/24/16 09:00 08/23/16 08:59 07/24/16 08:36 81 MG Gadobutrol (Gadavist) 5 mmol UD PRN IV 07/24/16 01:00 07/28/16 00:59 Metoprolol Tartrate (Lopressor Tab) 25 mg BID PO 07/24/16 09:00 08/23/16 08:59 07/24/16 09:20 25 MG Impression This patient may have had a TIA. Her dysarthria and left upper extremity weakness seems to have resolved. No evidence of an acute or subacute infarct on recently completed MRI. Interestingly, she had a very similar presentation in November 2015, also with a negative stroke workup. She does have rather extensive , chronic, cerebrovascular disease which is probably an important factor in her clinical presentation and also explains her chronic gait impairment. Plan Continue with aspirin 81 mg per day. Smoking cessation. PT/OT/speech therapy. No further immediate recommendations. May follow-up with me in clinic.
[2016-07-24] MEDS: LEVOFLOXACIN / D5W 500 MG in PREMIXED IN D5W 100 ML IV SCH (10:33)
[2016-07-24] MEDS: PANTOprazole INJ 40 MG in SYRINGE 0 ML IV SCH (10:33)
--- NOTE | 2016-07-24 10:36 | Clinical Documentation Query ---
CLINICAL DOCUMENTATION QUERY 76 year old female with a history of COPD who presents to the Emergency Room with complaints of persistent stroke-like symptoms In your clinical opinion is this patient being managed for: ( x ) Possible Acute on chronic diastolic (preserved EF) heart failure treated with IV Lasix. ( ) Other explanation of clinical findings (Please Explain) ( ) Unable to determine (Please Define) ( ) Need to Discuss ( ) Not Agree The medical record reflects the following clinical findings, treatment, and risk factors. Clinical Indicators: Tachycardia 107, Hypoxia on 2L NC of 85%. Diminished breath sounds. Echo shows EF=>70% with grade I diastolic dysfunction. Treatment: IV Lasix, Echo, Cardiology consult, telemetry, I/O's, daily weights. Risk Factors: Age, Hx of CHF, and HTN. Please clarify and document your clinical opinion in the progress notes and discharge summary. Terms such as "probable", "suspected", "likely", "questionable", "possible", or "still to be ruled out" are acceptable. IF IN AGREEMENT, YOU MUST DOCUMENT ABOVE DIAGNOSTIC STATEMENT IN DAILY PROGRESS NOTES AND DISCHARGE SUMMARY. This document is not part of the patient's record. Thank You, Esdras Vale, RN [phone]
--- NOTE | 2016-07-24 11:15 | CARDIOLOGY CONSULTATION REPORT ---
DATE OF CONSULTATION: 07/24/2016 DATE OF CONSULTATION: 07/24/2016. REASON FOR CONSULTATION: 1. Questionable atrial fibrillation versus atrial tachycardia. 2. Cerebrovascular accident. HISTORY OF PRESENT ILLNESS: Mrs. Lazo is a 76-year-old white female with a history of chronic extensive cerebrovascular disease, anemia, diastolic CHF, Parkinson's disease, osteoporosis, hypertension, glaucoma, peptic ulcer disease, COPD with respiratory failure and prior history of tobacco use who was admitted acutely on 07/23/2016 after she sustained a fall. Apparently she fell to her left side. It was noted that she had some mild changes in her speech beginning about 3 days before presentation, mild shortness of breath, and poor oral intake. On physical examination she was noted to have moderate left sided weakness which appeared to be new. Her MRI scanning showed extensive cerebrovascular disease, but no evidence of an acute CVA. Neurology has evaluated and suggested senior care antiplatelet therapy. On telemetry monitoring she was noted to have a few brief episodes of a slightly irregular narrow complex tachycardia lasting 5 or 6 beats. This may represent atrial fibrillation, or may also represent an atrial tachycardia. She denies any prior history of atrial dysrhythmias, atrial fibrillation or atrial flutter. The patient denies any prior cardiac history whatsoever. MEDICATIONS: 1. Lasix 40 mg IV daily. 2. Aspirin 81 mg daily. 3. Lopressor 25 mg b.i.d. 4. Protonix 40 mg IV daily. 5. NovoLog sliding scale insulin. 6. Methylprednisolone 60 mg IV q. 6 hours. 7. Levofloxacin 500 mg IV daily. 8. Heparin subcutaneously 5,000 units q. 12 hours. 9. Atrovent nebulizer. 10. Xopenex nebulizer. 11. Zofran p.r.n. 12. Tylenol p.r.n. 13. Morphine sulfate 2-4 mg IV q. 2 hour p.r.n. for pain. ALLERGIES: 1. CODEINE. 2. OXYCODONE. PAST MEDICAL HISTORY: 1. Osteoporosis. 2. Anemia. 3. History of anxiety disorder. 4. History of diastolic CHF. 5. History of compression fracture. 6. History of depression. 7. Frequent falls. 8. Peptic ulcer disease. 9. Hypertension. 10. History of pancreatitis. 11. History of Parkinsonism. 12. Chronic respiratory failure. 13. History of appendectomy. 14. History of colonoscopy. 15. History of endoscopy. SOCIAL HISTORY: The patient is and lives with her . She is a prior smoker. Does not drink alcohol. FAMILY HISTORY: Noncontributory. PHYSICAL EXAMINATION: VITAL SIGNS: Temperature is 36.9 degrees Celsius, pulse 94 and regular, respiratory rate is 16 and unlabored, blood pressure is 123/79, SpO2 is 96% on 3 liters of oxygen via nasal cannula. GENERAL: The patient is in no acute distress. She does appear chronically ill. HEAD, EYES, EARS, NOSE, AND THROAT: Head is atraumatic and normocephalic. EOMs intact. Sclerae are anicteric. Faces symmetric. No perioral cyanosis. NECK: Without thyromegaly, adenopathy or JVD. Carotid upstrokes are +2 bilaterally without bruits. CHEST AND LUNGS: With diminished breath sounds throughout, rare late expiratory wheezes. Increased AP diameter. Clear to auscultation throughout all lung reid. No wheezes, rales or rhonchi. CARDIOVASCULAR SYSTEM: S1 and S2 are regular with Grade 1/6 basal systolic murmur. No diastolic murmurs, gallops, or rubs. PMI is displaced inferiorly. No lifts, heaves, or thrills. No abdominal, aortic or renal bruits. ABDOMINAL EXAMINATION: Bowel sounds present. No masses, organomegaly, or tenderness. NEUROLOGIC EXAMINATION: The patient is awake, alert and interactive. Answers questions appropriately. Speech is clear. Moves upper and lower extremities on command. Telemetry monitoring as noted above. Predominantly normal sinus rhythm to sinus tachycardia with a few brief runs of a narrow complex tachycardia, possibly atrial tachycardia versus atrial fibrillation. LABORATORY DATA: White blood cell count is 16.3, hemoglobin 10.6 g/dL, hematocrit 34.0%, platelet count 278,000. Sodium is 134 mmol/L, potassium 4.0 mmol/L, BUN is 20, creatinine 0.87 mg/dL. Troponin I less than 0.015 ng/mL x3. Total CK and CKMBs are within normal limits. Total cholesterol is 137 with an LDL of 68 and HDL of 47. Her EKG on admission showed a normal sinus rhythm at the rate of 100 beats per minute. No acute changes. ASSESSMENT: 1. New onset left sided weakness and abnormal speech, possibly a transient ischemic attack/cerebrovascular accident. 2. Brief episodes of narrow complex tachycardia, possibly atrial tachycardia versus brief runs of atrial fibrillation. 3. Essentially structurally normal heart with normal LV systolic function on echocardiogram. Normal dimensions of left atrium. 4. No angina pectoris or anginal equivalent symptoms. 5. No overt signs or symptoms of heart failure. PLAN: 1. Discussed with Dr. Márquez. 2. The patient presented with an acute neurologic event. Neurology is recommending long-term antiplatelet therapy. The patient has not demonstrated any prolonged episodes of atrial fibrillation nor are we convinced that her brief runs of narrow complex tachycardia are atrial fibrillation. This may be an atrial tachycardia. 3. Agree with antiplatelet therapy. 4. Neurologic symptoms have improved dramatically. 5. Structurally normal heart on echocardiogram. 6. Agree with long-term beta cooper. 7. Lipid panel is favorable. 8. Could consider an implantable loop recorder to evaluate for atrial dysrhythmias at some point in the future. 9. We will continue to follow. I reviewed the information and consultation dictated by CHERRIE Estrada PA-C. I agree with the above documentation. I personally reviewed her telemetry including recordings from this morning 07/25/2016. No documented episodes of atrial fibrillation. She does have very brief episodes of what appear to be in atrial tachycardia. No indication for anticoagulation or therapy for atrial fibrillation based on these recordings. In the setting of cryptogenic stroke and concern for occult atrial fibrillation, consideration can be given for implantable loop recorder for longitudinal monitoring and assistance in diagnosis. YURIDIA
--- NOTE | 2016-07-24 17:17 | Progress Note ---
Subjective Date of Service: Jul 24, 2016. Subjective Pt evaluation today including: conversation w/ patient, conversation w/ family , physical exam, chart review, lab review, review of studies, conversation w/ change consultant, review of inpatient medication list reported mild dizziness, and decreased appetites, otherwise no complaints Problem List Medical Problems: (1) Acute CVA (cerebrovascular accident) Status: Acute (2) Anemia Status: Chronic (3) Cachexia Status: Acute (4) CHF (congestive heart failure) Status: Chronic (5) Confusion Status: Acute (6) Dehydration Status: Acute (7) Dehydration Status: Acute (8) Dehydration Status: Acute (9) Fall Status: Acute (10) Generalized weakness Status: Acute (11) Generalized weakness Status: Acute (12) Loss of appetite Status: Acute (13) Multiple fractures of ribs of left side Status: Acute (14) Pleural effusion Status: Acute (15) Shortness of breath Status: Acute (16) Urinary tract infection Status: Acute Review of Systems Constitutional: + fatigue, + weakness, No chills, No fever, No problem reported , No sweats, No weight loss Eyes: No diplopia, No discharge, No eye pain, No redness, No worsening of vision ENT: No dental problems, No hearing loss, No nasal symptoms, No sore throat, No tinnitus, No trouble swallowing, No unusual epistaxis Respiratory: No cough, No dyspnea at rest, No dyspnea on exertion, No hemoptysis, No shortness of breath, No sputum, No wheezing Cardiac: No PND, No chest pain, No claudication, No edema, No orthopnea, No palpitations Abdomen: No constipation, No diarrhea, No nausea, No pain, No vomiting Musculoskeletal: No calf pain, No joint pain, No muscle pain, No swelling Female : No abnormal vaginal bleeding, No dysuria, No hematuria, No incontinence, No urinary frequency, No vaginal discharge Neurologic: No balance problems, No memory loss, No numbness/tingling, No paralysis, No vertigo, No weakness Psychiatric: No anhedonism, No anxiety, No depression symptoms, No insomnia, No substance abuse Heme: No abnormal bleeding/bruising, No clotting problems, No night sweats, No swollen lymph nodes Endo: + fatigue, No excessive thirst, No excessive urination Skin: No bleeding, No color change, No itch, No new/changing skin lesions, No rash Objective Vital Signs Date Time Temp Pulse Resp B/P Pulse Ox O2 Delivery O2 Flow Rate FiO2 07/24/16 16:00 92 Nasal Cannula 2.0 07/24/16 14:56 36.5 73 18 152/90 92 Nasal Cannula 2.0 07/24/16 12:00 95 Nasal Cannula 2.0 07/24/16 11:00 36.7 69 18 122/76 95 Nasal Cannula 2.0 07/24/16 08:00 94 16 96 Nasal Cannula 3.0 07/24/16 08:00 Nasal Cannula 2.0 07/24/16 07:43 36.9 95 18 123/79 92 Nasal Cannula 2.0 07/24/16 04:45 36.6 99 18 149/83 93 Nasal Cannula 2.0 07/24/16 04:00 92 Nasal Cannula 2.0 07/24/16 01:45 84 16 93 Nasal Cannula 2.0 07/24/16 00:00 36.5 86 19 116/74 92 Nasal Cannula 2.0 07/24/16 00:00 92 Nasal Cannula 2.0 07/23/16 20:00 Nasal Cannula 2.0 07/23/16 20:00 36.6 93 18 127/78 94 Nasal Cannula 2.0 07/23/16 19:51 102 22 95 Nasal Cannula 2.0 Physical Exam General Appearance: WD/WN, no apparent distress, + thin, + pertinent finding ( thin) Eyes: normal inspection, PERRL, EOMI, sclerae normal ENT: normal ENT inspection, hearing grossly normal, pharynx normal Neck: supple, no adenopathy, thyroid normal, no JVD, no carotid bruits, trachea midline Respiratory/Chest: chest non-tender, lungs clear, normal breath sounds, no respiratory distress, no accessory muscle use Cardiovascular: regular rate, rhythm, no edema, no gallop, no JVD, no murmur Abdomen: normal bowel sounds, non tender, soft, no organomegaly, no pulsatile mass Extremities: normal range of motion, non-tender, normal inspection, no pedal edema, no calf tenderness, normal capillary refill, pelvis stable 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, no motor/sensory deficits, alert, normal mood/affect, oriented x 3 Skin: normal color, warm/dry, no rash Lymphatic: no adenopathy Laboratory Results Last 24 Hours Test 07/23/16 19:44 07/23/16 20:45 07/24/16 06:37 07/24/16 07:25 Bedside Glucose 143 mg/dl 136 mg/dl Total Creatine Kinase 114 U/L Creatine Kinase MB 2.0 ng/ml Creatine Kinase MB Ratio 1.8 Troponin I < 0.015 ng/ml White Blood Count 16.38 K/uL Red Blood Count 4.23 M/uL Hemoglobin 10.6 g/dL Hematocrit 34.0 % Mean Corpuscular Volume 80.4 fL Mean Corpuscular Hemoglobin 25.1 pg Mean Corpuscular Hemoglobin Concent 31.2 g/dl Platelet Count 278 K/uL Mean Platelet Volume 8.8 fL Neutrophils (%) (Auto) 93.6 % Lymphocytes (%) (Auto) 4.3 % Monocytes (%) (Auto) 1.8 % Eosinophils (%) (Auto) 0.0 % Basophils (%) (Auto) 0.0 % Neutrophils # (Auto) 15.33 K/uL Lymphocytes # (Auto) 0.71 K/uL Monocytes # (Auto) 0.29 K/uL Eosinophils # (Auto) 0.00 K/uL Basophils # (Auto) 0.00 K/uL RDW Standard Deviation 53.8 fL RDW Coefficient of Variation 18.1 % Immature Granulocyte % (Auto) 0.3 % Immature Granulocyte # (Auto) 0.05 K/uL Sodium Level 134 mmol/L Potassium Level 4.0 mmol/L Chloride Level 95 mmol/L Carbon Dioxide Level 31 mmol/L Anion Gap 8.0 mmol/L Blood Urea Nitrogen 20 mg/dl Creatinine 0.87 mg/dl Est Creatinine Clear Calc Drug Dose 44.7 ml/min Estimated GFR () 75.5 Estimated GFR (Non- 65.2 BUN/Creatinine Ratio 23.2 Random Glucose 124 mg/dl Calcium Level 8.6 mg/dl Triglycerides Level 111 mg/dl Cholesterol Level 137 mg/dl HDL Cholesterol 47 mg/dl LDL Cholesterol, Calculated 68 mg/dl VLDL Cholesterol, Calculated 22 mg/dl Cholesterol/HDL Ratio 2.9 Test 07/24/16 11:09 07/24/16 14:45 07/24/16 16:09 Bedside Glucose 168 mg/dl 138 mg/dl 133 mg/dl Assessment and Plan 76-year-old white female admitted on 07/23/2016, because of possible Subacute right hemispheric CVA with left-sided weakness possible TIA. with dysarthria and left upper extremity weakness CT of the head shows small vessel disease, no acute findings. No evidence of an acute or subacute infarct on recently completed MRI. Possible acute on chronic CHF is a patient Continue furosemide 40 mg IV now and every morning. Possible COPD exacerbation--place on Solu-Medrol 60 mg IV every 6 hours, ceftriaxone 1 g IV daily, levofloxacin 5 mg IV every 24 hours, and Xopenex / Atrovent nebulizer to use every 6 hours while awake and every 2 hours when necessary. Repeat a chest x-ray if needed GERD--change omeprazole 20 mg by mouth daily to pantoprazole 40 mg IV daily. cardio and neuro input appreciate Continue with aspirin 81 mg per day. Lipid panel is favorable. cardio recs, could consider an implantable loop recorder to evaluate for atrial dysrhythmias at some point in the future. Smoking cessation. Anxiety/depression--Lexapro and Xanax on hold while nothing by mouth. leukocytosis likely from the use of solumedrol GI and DVT prophylaxis full code PT/OT/speech therapy. Continued [facility] stay due to: multiple IV medications needed Discharge planning: home
[2016-07-24] MEDS ORDERED: METOPROLOL TARTRATE 25 MG TAB PO STA (17:30)
[2016-07-24] MEDS ORDERED: MECLIZINE HCL 25 MG TAB PO ONE (18:00)
[2016-07-24] MEDS: ONDANSETRON INJ 2 MG/ML 2 ML VIAL IV PRN (19:00)
[2016-07-24 19:40] LABS: URINE APPEARANCE CLEAR (CLEAR); URINE BILIRUBIN NEG (NEG); URINE COLOR YELLOW; URINE NITRITE NEG (NEG); URINE SPECIFIC GRAVITY 1.016 (1.000-1.030); UROBILINOGEN NEG (NEG)
[2016-07-24 19:47] LABS: MANUAL MICROSCOPIC REQUIRED? NO; REVIEW REQ? NO
[2016-07-24] MEDS: MECLIZINE HCL 25 MG TAB PO SCH (20:49)
[2016-07-25] VITALS (14 sets, daily range): BP systolic 115–171; BP diastolic 73–95; PULSE 60–87; TEMP 36.5–37; O2SAT 92–95
[2016-07-25] MEDS: LEVALBUTEROL 1.25MG/0.5ML NEB INH SCH ×4 (02:13→19:41)
[2016-07-25] MEDS: IPRATROPIUM BROMIDE NEB SOLN 0.02% 2.5 ML VIAL INH SCH ×4 (02:13→19:41)
[2016-07-25] MEDS: MoRPHine SULFATE 2 MG/ML CARP IV PRN (04:24)
[2016-07-25] MEDS: MECLIZINE HCL 25 MG TAB PO SCH ×3 (06:20→20:47)
[2016-07-25] MEDS: ASPIRIN 81 MG ECTAB PO SCH (08:50)
[2016-07-25] MEDS: FUROSEMIDE INJ 40 MG in SYRINGE 0 ML IV SCH (08:50)
[2016-07-25] MEDS: METOPROLOL TARTRATE 25 MG TAB PO SCH ×2 (08:51→20:46)
[2016-07-25] MEDS: INSULIN ASPART 100 UNITS/ML 3 ML PEN SC SCH ×4 (08:57→21:00)
[2016-07-25 09:03] LABS: COMPLETE YES; HEMATOCRIT 35.5 % (37-47); IG% 0.2 %; LYMPH ABS # 0.59 K/uL (1.2-3.4); MEAN CELL VOLUME 81.2 fL (80-100); MEAN CORPUSCULAR HEMOGLOBIN 24.7 pg (25-34); MEAN CORPUSCULAR HGB CONC 30.4 g/dl (32-36); MEAN PLATELET VOLUME 9.1 fL (7.4-10.4); MONO % 4.3 %; NEUT % 91.5 %; PLATELET COUNT 298 K/uL (130-400); RED BLOOD COUNT 4.37 M/uL (4.2-5.4); WHITE BLOOD COUNT 14.58 K/uL (4.8-10.8)
[2016-07-25 09:14] LABS: BUN/CREATININE RATIO 38.5 (10-20); CALCIUM 8.5 mg/dl (8.5-10.1); CREATININE 0.99 mg/dl (0.60-1.20); POTASSIUM 4.6 mmol/L (3.5-5.1)
[2016-07-25] MEDS: LEVOFLOXACIN / D5W 500 MG in PREMIXED IN D5W 100 ML IV SCH (09:51)
[2016-07-25] MEDS: HEPARIN SOD 5000 UNIT/0.5 ML CARP SQ SCH ×2 (09:53→20:48)
[2016-07-25] MEDS ORDERED: NURSING VERBAL MED ORDER ONE ×4 (10:15→14:15)
[2016-07-25] MEDS ORDERED: POLYETHYLENE (MIRALAX) 17 GM PACK PO STA (10:33)
[2016-07-25] MEDS ORDERED: KETOROLAC TROMETHAMINE 30 MG/ML VIAL IV. STA (10:35)
[2016-07-25] MEDS: DOCUSATE SODIUM 100 MG CAP PO SCH ×2 (10:57→20:46)
[2016-07-25] MEDS: PANTOprazole INJ 40 MG in SYRINGE 0 ML IV SCH (10:58)
--- NOTE | 2016-07-25 13:15 | Progress Note ---
Subjective Date of Service: Jul 25, 2016. Subjective Pt evaluation today including: conversation w/ patient, conversation w/ family , physical exam, chart review, lab review, review of studies, conversation w/ big machine consultant, review of inpatient medication list Was complaining about left flank pain, which was resolved after Toradol, feeling generalized weakness, no appetite poor by mouth intake Problem List Medical Problems: (1) Acute CVA (cerebrovascular accident) Status: Acute (2) Anemia Status: Chronic (3) Cachexia Status: Acute (4) CHF (congestive heart failure) Status: Chronic (5) Confusion Status: Acute (6) Dehydration Status: Acute (7) Dehydration Status: Acute (8) Dehydration Status: Acute (9) Fall Status: Acute (10) Generalized weakness Status: Acute (11) Generalized weakness Status: Acute (12) Loss of appetite Status: Acute (13) Multiple fractures of ribs of left side Status: Acute (14) Pleural effusion Status: Acute (15) Shortness of breath Status: Acute (16) Urinary tract infection Status: Acute Review of Systems Constitutional: + fatigue, + weakness, No chills, No fever, No problem reported , No sweats, No weight loss Eyes: No diplopia, No discharge, No eye pain, No redness, No worsening of vision ENT: No dental problems, No hearing loss, No nasal symptoms, No sore throat, No tinnitus, No trouble swallowing, No unusual epistaxis Respiratory: No cough, No dyspnea at rest, No dyspnea on exertion, No hemoptysis, No shortness of breath, No sputum, No wheezing Cardiac: No PND, No chest pain, No claudication, No edema, No orthopnea, No palpitations Abdomen: + constipation, No diarrhea, No nausea, No pain, No vomiting Musculoskeletal: No calf pain, No joint pain, No muscle pain, No swelling Female : No abnormal vaginal bleeding, No dysuria, No hematuria, No incontinence, No urinary frequency, No vaginal discharge Neurologic: No balance problems, No memory loss, No numbness/tingling, No paralysis, No vertigo, No weakness Psychiatric: No anhedonism, No anxiety, No depression symptoms, No insomnia, No substance abuse Heme: No abnormal bleeding/bruising, No clotting problems, No night sweats, No swollen lymph nodes Endo: No excessive thirst, No excessive urination, No fatigue Skin: No bleeding, No color change, No itch, No new/changing skin lesions, No rash Objective Vital Signs Date Time Temp Pulse Resp B/P Pulse Ox O2 Delivery O2 Flow Rate FiO2 07/25/16 12:00 93 Nasal Cannula 2.0 07/25/16 11:36 37.0 60 18 115/74 93 Nasal Cannula 2.0 07/25/16 08:00 92 Nasal Cannula 2.0 07/25/16 07:52 36.7 72 18 132/78 92 Nasal Cannula 2.0 07/25/16 07:22 87 16 92 Nasal Cannula 2.0 07/25/16 04:00 Nasal Cannula 2.0 07/25/16 04:00 36.8 82 18 131/83 93 2.0 07/25/16 02:13 62 16 93 Nasal Cannula 2.0 07/25/16 00:15 36.6 71 18 134/83 95 2.0 07/25/16 00:01 Nasal Cannula 2.0 07/24/16 20:00 92 Nasal Cannula 2.0 07/24/16 19:59 36.5 62 18 131/73 100 Nasal Cannula 2.0 07/24/16 19:48 68 16 96 Nasal Cannula 2.0 07/24/16 17:27 98 162/95 07/24/16 16:00 92 Nasal Cannula 2.0 07/24/16 14:56 36.5 73 18 152/90 92 Nasal Cannula 2.0 Physical Exam General Appearance: WD/WN, no apparent distress, + thin, + pertinent finding ( frail ) Eyes: normal inspection, PERRL, EOMI, sclerae normal ENT: normal ENT inspection, hearing grossly normal, pharynx normal Neck: supple, no adenopathy, thyroid normal, no JVD, no carotid bruits, trachea midline Respiratory/Chest: chest non-tender, normal breath sounds, no respiratory distress, no accessory muscle use, + decreased breath sounds Cardiovascular: regular rate, rhythm, no edema, no gallop, no JVD, no murmur Abdomen: normal bowel sounds, non tender, soft, no organomegaly, no pulsatile mass Extremities: normal range of motion, non-tender, normal inspection, no pedal edema, no calf tenderness, normal capillary refill, pelvis stable 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, no motor/sensory deficits, alert, normal mood/affect, oriented x 3 Skin: normal color, warm/dry, no rash Lymphatic: no adenopathy Laboratory Results Last 24 Hours Test 07/24/16 14:45 07/24/16 16:09 07/24/16 18:44 07/24/16 20:20 Bedside Glucose 138 mg/dl 133 mg/dl 165 mg/dl Urine Color YELLOW Urine Appearance CLEAR Urine pH 5.0 Urine Specific Mcintyre 1.016 Urine Protein NEG Urine Glucose (UA) NEG Urine Ketones NEG Urine Occult Blood NEG Urine Nitrite NEG Urine Bilirubin NEG Urine Urobilinogen NEG Urine Leukocyte Esterase NEG Test 07/25/16 07:24 07/25/16 08:17 07/25/16 11:37 Bedside Glucose 151 mg/dl 130 mg/dl White Blood Count 14.58 K/uL Red Blood Count 4.37 M/uL Hemoglobin 10.8 g/dL Hematocrit 35.5 % Mean Corpuscular Volume 81.2 fL Mean Corpuscular Hemoglobin 24.7 pg Mean Corpuscular Hemoglobin Concent 30.4 g/dl Platelet Count 298 K/uL Mean Platelet Volume 9.1 fL Neutrophils (%) (Auto) 91.5 % Lymphocytes (%) (Auto) 4.0 % Monocytes (%) (Auto) 4.3 % Eosinophils (%) (Auto) 0.0 % Basophils (%) (Auto) 0.0 % Neutrophils # (Auto) 13.34 K/uL Lymphocytes # (Auto) 0.59 K/uL Monocytes # (Auto) 0.62 K/uL Eosinophils # (Auto) 0.00 K/uL Basophils # (Auto) 0.00 K/uL RDW Standard Deviation 54.4 fL RDW Coefficient of Variation 18.2 % Immature Granulocyte % (Auto) 0.2 % Immature Granulocyte # (Auto) 0.03 K/uL Sodium Level 134 mmol/L Potassium Level 4.6 mmol/L Chloride Level 93 mmol/L Carbon Dioxide Level 33 mmol/L Anion Gap 8.0 mmol/L Blood Urea Nitrogen 38 mg/dl Creatinine 0.99 mg/dl Est Creatinine Clear Calc Drug Dose 38.1 ml/min Estimated GFR () 64.6 Estimated GFR (Non- 55.7 BUN/Creatinine Ratio 38.5 Random Glucose 125 mg/dl Calcium Level 8.5 mg/dl Assessment and Plan 76-year-old white female admitted on 07/23/2016, because of possible Subacute right hemispheric CVA with left-sided weakness possible TIA. with dysarthria and left upper extremity weakness CT of the head shows small vessel disease, no acute findings. No evidence of an acute or subacute infarct on recently completed MRI. Neuro on the case, continue aspirin, PTOT, outpatient follow up with neuro Possible acute on chronic CHF is a patient Has been on furosemide 40 mg IV, changed to oral Lasix Possible COPD exacerbation Has been on Solu-Medro, has taper to oral prednisone Has been on IV Levaquin , Will change to by mouth Continue Xopenex /Atrovent nebulizer to use every 6 hours while awake and every 2 hours when necessary. Repeat a chest x-ray if needed GERD--change omeprazole 20 mg by mouth daily to pantoprazole 40 mg IV daily. cardio and neuro input appreciate Continue with aspirin 81 mg per day. Lipid panel is favorable. cardio recs, could consider an implantable loop recorder to evaluate for atrial dysrhythmias at some point in the future. Smoking cessation. Anxiety/depression--Lexapro and Xanax on hold while nothing by mouth. Malnutrition, poor by mouth intake, constipation, bowel regimen is and Dulcolax suppository Megace by mouth, preoperatively level dietitian consult leukocytosis likely from the use of solumedrol GI and DVT prophylaxis full code PT OT recommend rehabilitation, I convincing her to go Continued [facility] stay due to: multiple IV medications needed Discharge planning: home
[2016-07-25] MEDS: ONDANSETRON INJ 2 MG/ML 2 ML VIAL IV PRN (13:35)
[2016-07-25] MEDS ORDERED: BISACODYL 10 MG SUPP ONE (13:40)
[2016-07-25] MEDS ORDERED: MEGESTROL ACETATE SUSP 400 MG/10 ML UDC PO ONE (14:00)
--- NOTE | 2016-07-25 14:32 | DIAGNOSTIC IMAGING REPORT ---
KUB HISTORY: Generalized abdominal pain. COMPARISON: Chest and abdominal series 05/07/2015. FINDINGS: The bowel gas pattern is unremarkable. There are no dilated loops of small bowel to suggest an obstruction. No renal calculi. No ureteral calculi. No pneumoperitoneum or pneumatosis. Prior internal fixation of a left hip fracture. There is no old, healed right pubic ring fracture. The bones are osteopenic. IMPRESSION: No evidence for bowel obstruction. Electronically signed by: Arash Vail M.D. 07/25/2016 2:30 PM Dictated Date/Time: 07/25/2016 2:28 PM
[2016-07-25] MEDS ORDERED: MAGNESIUM CITRATE 296 ML/BTL PO ONE (15:00)
[2016-07-25 15:15] LABS: HYDROXYETHYLFLURAZEPAM CONF NEGATIVE NG/ML (CUTOFF=50); HYDROXYMIDAZOLAM NEGATIVE NG/ML (CUTOFF=50); HYDROXYTRIAZOLAM CONF NEGATIVE NG/ML (CUTOFF=50); TEMAZEPAM CONF NEGATIVE NG/ML (CUTOFF=50)
[2016-07-25] MEDS: ALPRAZOLAM 0.25 MG TAB PO PRN (17:24)
[2016-07-25] MEDS: ACETAMINOPHEN IV 100 ML IV PRN (19:21)
[2016-07-26] VITALS (14 sets, daily range): BP systolic 115–174; BP diastolic 78–105; PULSE 64–105; TEMP 36.5–36.9; O2SAT 90–97
[2016-07-26] MEDS: ALPRAZOLAM 0.25 MG TAB PO PRN ×3 (01:29→21:52)
[2016-07-26] MEDS: LEVALBUTEROL 1.25MG/0.5ML NEB INH SCH ×5 (01:57→20:09)
[2016-07-26] MEDS: IPRATROPIUM BROMIDE NEB SOLN 0.02% 2.5 ML VIAL INH SCH ×5 (01:57→20:09)
[2016-07-26] MEDS: ONDANSETRON INJ 2 MG/ML 2 ML VIAL IV PRN ×2 (03:44→17:54)
[2016-07-26] MEDS: MECLIZINE HCL 25 MG TAB PO SCH ×3 (05:39→21:43)
[2016-07-26] MEDS: KETOROLAC TROMETHAMINE 15 MG/ML VIAL IV. PRN ×2 (05:40→17:54)
[2016-07-26 07:57] LABS: COMPLETE YES; HEMATOCRIT 35.7 % (37-47); IG% 0.2 %; LYMPH % 11.1 %; LYMPH ABS # 0.91 K/uL (1.2-3.4); MEAN CELL VOLUME 79.2 fL (80-100); MEAN CORPUSCULAR HEMOGLOBIN 24.4 pg (25-34); MEAN CORPUSCULAR HGB CONC 30.8 g/dl (32-36); MEAN PLATELET VOLUME 9.2 fL (7.4-10.4); MONO % 6.9 %; NEUT % 81.8 %; PLATELET COUNT 247 K/uL (130-400); RED BLOOD COUNT 4.51 M/uL (4.2-5.4); WHITE BLOOD COUNT 8.22 K/uL (4.8-10.8)
[2016-07-26] MEDS: DOCUSATE SODIUM 100 MG CAP PO SCH ×2 (08:08→21:42)
[2016-07-26] MEDS: ASPIRIN 81 MG ECTAB PO SCH (08:09)
[2016-07-26] MEDS: MEGESTROL ACETATE SUSP 400 MG/10 ML UDC PO SCH (08:09)
[2016-07-26] MEDS: METOPROLOL TARTRATE 25 MG TAB PO SCH ×2 (08:09→21:42)
[2016-07-26] MEDS: INSULIN ASPART 100 UNITS/ML 3 ML PEN SC SCH ×4 (08:30→21:00)
[2016-07-26] MEDS ORDERED: FUROSEMIDE 40 MG TAB PO SCH (09:00)
[2016-07-26 09:03] LABS: BUN/CREATININE RATIO 43.2 (10-20); CREATININE 1.3 mg/dl (0.60-1.20); MAGNESIUM 2.6 mg/dl (1.8-2.4); POTASSIUM 3.9 mmol/L (3.5-5.1)
[2016-07-26 09:45] LABS: CALCIUM 8.9 mg/dl (8.5-10.1)
[2016-07-26] MEDS: SOD PHOSPHATE/SOD BIPHOSPHATE ENEMA 132 ML BTL PR ONE ×2 (10:16→14:10)
[2016-07-26] MEDS: HEPARIN SOD 5000 UNIT/0.5 ML CARP SQ SCH ×2 (10:20→21:46)
[2016-07-26] MEDS: LEVOFLOXACIN 500 MG TAB PO SCH (11:05)
[2016-07-26] MEDS: PANTOprazole INJ 40 MG in SYRINGE 0 ML IV SCH (11:05)
[2016-07-26] MEDS: MoRPHine SULFATE 2 MG/ML CARP IV PRN (21:54)
[2016-07-27] VITALS (13 sets, daily range): BP systolic 143–170; BP diastolic 57–99; PULSE 57–92; TEMP 36.6–37; O2SAT 95–100
[2016-07-27] MEDS: IPRATROPIUM BROMIDE NEB SOLN 0.02% 2.5 ML VIAL INH SCH ×4 (01:27→18:55)
[2016-07-27] MEDS: LEVALBUTEROL 1.25MG/0.5ML NEB INH SCH ×4 (01:28→18:55)
[2016-07-27] MEDS: MECLIZINE HCL 25 MG TAB PO SCH ×3 (05:52→21:46)
[2016-07-27] MEDS: ASPIRIN 81 MG ECTAB PO SCH (07:59)
[2016-07-27] MEDS: DOCUSATE SODIUM 100 MG CAP PO SCH ×2 (07:59→21:46)
[2016-07-27] MEDS: MEGESTROL ACETATE SUSP 400 MG/10 ML UDC PO SCH (07:59)
[2016-07-27] MEDS: METOPROLOL TARTRATE 25 MG TAB PO SCH ×2 (07:59→21:45)
[2016-07-27] MEDS: INSULIN ASPART 100 UNITS/ML 3 ML PEN SC SCH ×4 (08:14→20:47)
[2016-07-27] MEDS: HEPARIN SOD 5000 UNIT/0.5 ML CARP SQ SCH ×2 (10:35→21:43)
[2016-07-27] MEDS: LEVOFLOXACIN 500 MG TAB PO SCH (11:36)
[2016-07-27] MEDS: ALPRAZOLAM 0.25 MG TAB PO PRN ×2 (12:23→21:44)
[2016-07-27] MEDS: ONDANSETRON INJ 2 MG/ML 2 ML VIAL IV PRN ×2 (12:26→18:07)
[2016-07-27] MEDS: KETOROLAC TROMETHAMINE 15 MG/ML VIAL IV. PRN (12:28)
[2016-07-27] MEDS ORDERED: POLYETHYLENE (MIRALAX) 17 GM PACK PO SCH (12:50)
[2016-07-27] MEDS ORDERED: POLYETHYLENE (MIRALAX) 17 GM PACK PO PRN (13:00)
[2016-07-27] MEDS ORDERED: NURSING VERBAL MED ORDER ONE (13:00)
--- NOTE | 2016-07-27 15:04 | Progress Note ---
Subjective Date of Service: Jul. Subjective Pt evaluation today including: conversation w/ patient, physical exam, chart review, lab review, review of studies doing doing the same, no bowel movement, she feels she possible it less therefore no bowel movement, do not want to go to rehabilitation Problem List Medical Problems: (1) Acute CVA (cerebrovascular accident) Status: Acute (2) Anemia Status: Chronic (3) Cachexia Status: Acute (4) CHF (congestive heart failure) Status: Chronic (5) Confusion Status: Acute (6) Dehydration Status: Acute (7) Dehydration Status: Acute (8) Dehydration Status: Acute (9) Fall Status: Acute (10) Generalized weakness Status: Acute (11) Generalized weakness Status: Acute (12) Loss of appetite Status: Acute (13) Multiple fractures of ribs of left side Status: Acute (14) Pleural effusion Status: Acute (15) Shortness of breath Status: Acute (16) Urinary tract infection Status: Acute Review of Systems Constitutional: No chills, No fatigue, No fever, No problem reported, No sweats , No weakness, No weight loss Eyes: No diplopia, No discharge, No eye pain, No redness, No worsening of vision ENT: No dental problems, No hearing loss, No nasal symptoms, No sore throat, No tinnitus, No trouble swallowing, No unusual epistaxis Respiratory: No cough, No dyspnea at rest, No dyspnea on exertion, No hemoptysis, No shortness of breath, No sputum, No wheezing Cardiac: No PND, No chest pain, No claudication, No edema, No orthopnea, No palpitations Abdomen: No constipation, No diarrhea, No nausea, No pain, No vomiting Musculoskeletal: No calf pain, No joint pain, No muscle pain, No swelling Female : No abnormal vaginal bleeding, No dysuria, No hematuria, No incontinence, No urinary frequency, No vaginal discharge Neurologic: No balance problems, No memory loss, No numbness/tingling, No paralysis, No vertigo, No weakness Psychiatric: No anhedonism, No anxiety, No depression symptoms, No insomnia, No substance abuse Heme: No abnormal bleeding/bruising, No clotting problems, No night sweats, No swollen lymph nodes Endo: No excessive thirst, No excessive urination, No fatigue Skin: No bleeding, No color change, No itch, No new/changing skin lesions, No rash Objective Vital Signs Date Time Temp Pulse Resp B/P Pulse Ox O2 Delivery O2 Flow Rate FiO2 07/27/16 12:00 98 Nasal Cannula 2.0 07/27/16 11:32 36.6 79 16 143/86 98 3.0 07/27/16 08:00 97 Nasal Cannula 2.0 07/27/16 07:51 36.8 80 16 152/93 97 07/27/16 07:20 80 16 98 Nasal Cannula 2.0 07/27/16 04:39 36.9 79 18 167/97 95 2.0 07/27/16 04:30 Nasal Cannula 2.0 07/27/16 00:30 Nasal Cannula 2.0 07/26/16 23:44 36.9 94 20 153/95 95 2.0 07/26/16 21:40 97 115/105 07/26/16 20:10 105 16 95 Nasal Cannula 2.0 07/26/16 20:00 97 Nasal Cannula 2.0 07/26/16 19:47 36.9 105 20 174/94 90 Nasal Cannula 2.0 07/26/16 16:00 97 Nasal Cannula 2.0 07/26/16 16:00 36.9 95 18 123/78 97 Nasal Cannula 2.0 Physical Exam General Appearance: WD/WN, no apparent distress, + thin, + pertinent finding ( frail looks weak) Eyes: normal inspection, PERRL, EOMI, sclerae normal ENT: normal ENT inspection, hearing grossly normal, pharynx normal Neck: supple, no adenopathy, thyroid normal, no JVD, no carotid bruits, trachea midline Respiratory/Chest: chest non-tender, lungs clear, normal breath sounds, no respiratory distress, no accessory muscle use Cardiovascular: regular rate, rhythm, no edema, no gallop, no JVD, no murmur Abdomen: normal bowel sounds, non tender, soft, no organomegaly, no pulsatile mass Extremities: normal range of motion, non-tender, normal inspection, no pedal edema, no calf tenderness, normal capillary refill, pelvis stable 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 with dysarthria and left upper extremity weakness CT of the head shows small vessel disease, no acute findings. No evidence of an acute or subacute infarct on recently completed MRI. Neuro on the case, continue aspirin, PTOT, outpatient follow up with neuro Possible acute on chronic CHF is a patient Has been on furosemide 40 mg IV, changed to oral Lasix Possible COPD exacerbation Has been on Solu-Medro, has taper to oral prednisone continue tapering Has been on IV Levaquin , we'll switch to oral Continue Xopenex /Atrovent nebulizer to use every 6 hours while awake and every 2 hours when necessary. Repeat a chest x-ray if needed GERD--change omeprazole 20 mg by mouth daily to pantoprazole 40 mg IV daily. cardio and neuro input appreciate Continue with aspirin 81 mg per day. Lipid panel is favorable. cardio recs, could consider an implantable loop recorder to evaluate for atrial dysrhythmias at some point in the future. Smoking cessation. Anxiety/depression--L Moderate to severe protein Malnutrition, poor by mouth intake, constipation, bowel regimen is and Dulcolax suppository Megace by mouth Still poor by mouth intake leukocytosis likely from the use of solumedrol GI and DVT prophylaxis full code PT OT recommend rehabilitation, I convincing her to go Continued [facility] stay due to: multiple IV medications needed Discharge planning: home
--- NOTE | 2016-07-27 15:13 | Progress Note ---
Subjective Date of Service: Jul 27, 2016. Subjective Pt evaluation today including: conversation w/ patient, conversation w/ family , physical exam, chart review, lab review, review of studies, review of inpatient medication list Continue feeling tired, no appetite, has a small bowel movement yesterday Problem List Medical Problems: (1) Acute CVA (cerebrovascular accident) Status: Acute (2) Anemia Status: Chronic (3) Cachexia Status: Acute (4) CHF (congestive heart failure) Status: Chronic (5) Confusion Status: Acute (6) Dehydration Status: Acute (7) Dehydration Status: Acute (8) Dehydration Status: Acute (9) Fall Status: Acute (10) Generalized weakness Status: Acute (11) Generalized weakness Status: Acute (12) Loss of appetite Status: Acute (13) Multiple fractures of ribs of left side Status: Acute (14) Pleural effusion Status: Acute (15) Shortness of breath Status: Acute (16) Urinary tract infection Status: Acute Review of Systems Constitutional: + fatigue, + weakness Eyes: No diplopia, No discharge, No eye pain, No problem reported, No redness, No see HPI, No worsening of vision ENT: No dental problems, No hearing loss, No nasal symptoms, No problem reported, No see HPI, No sore throat, No tinnitus, No trouble swallowing, No unusual epistaxis Respiratory: No cough, No dyspnea at rest, No dyspnea on exertion, No hemoptysis, No problem reported, No see HPI, No shortness of breath, No sputum, No wheezing Cardiac: No PND, No chest pain, No claudication, No edema, No orthopnea, No palpitations, No problem reported, No see HPI Abdomen: No GI bleeding, No constipation, No diarrhea, No nausea, No pain, No problem reported, No see HPI, No vomiting Musculoskeletal: No calf pain, No joint pain, No muscle pain, No problem reported, No see HPI, No swelling Female : No abnormal vaginal bleeding, No dysuria, No hematuria, No incontinence, No problem reported, No see HPI, No urinary frequency, No vaginal discharge Psychiatric: No anhedonism, No anxiety, No depression symptoms, No insomnia, No problem reported, No see HPI, No substance abuse Objective Vital Signs Date Time Temp Pulse Resp B/P Pulse Ox O2 Delivery O2 Flow Rate FiO2 07/27/16 12:00 98 Nasal Cannula 2.0 07/27/16 11:32 36.6 79 16 143/86 98 3.0 07/27/16 08:00 97 Nasal Cannula 2.0 07/27/16 07:51 36.8 80 16 152/93 97 07/27/16 07:20 80 16 98 Nasal Cannula 2.0 07/27/16 04:39 36.9 79 18 167/97 95 2.0 07/27/16 04:30 Nasal Cannula 2.0 07/27/16 00:30 Nasal Cannula 2.0 07/26/16 23:44 36.9 94 20 153/95 95 2.0 07/26/16 21:40 97 115/105 07/26/16 20:10 105 16 95 Nasal Cannula 2.0 07/26/16 20:00 97 Nasal Cannula 2.0 07/26/16 19:47 36.9 105 20 174/94 90 Nasal Cannula 2.0 07/26/16 16:00 97 Nasal Cannula 2.0 07/26/16 16:00 36.9 95 18 123/78 97 Nasal Cannula 2.0 Physical Exam General Appearance: WD/WN, no apparent distress, + thin (very frail) Eyes: normal inspection, PERRL, EOMI, sclerae normal ENT: normal ENT inspection, hearing grossly normal, pharynx normal Neck: supple, no adenopathy, thyroid normal, no JVD, no carotid bruits, trachea midline Respiratory/Chest: chest non-tender, normal breath sounds, no respiratory distress, no accessory muscle use, + decreased breath sounds Cardiovascular: regular rate, rhythm, no edema, no gallop, no JVD, no murmur Abdomen: normal bowel sounds, non tender, soft, no organomegaly, no pulsatile mass Extremities: normal range of motion, non-tender, normal inspection, no pedal edema, no calf tenderness, normal capillary refill, pelvis stable 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 with dysarthria and left upper extremity weakness ; stable CT of the head shows small vessel disease, no acute findings. No evidence of an acute or subacute infarct on recently completed MRI. Neuro on the case, continue aspirin, PTOT, outpatient follow up with neuro Possible acute on chronic CHF is a patient: Stable Has been on furosemide 40 mg IV, changed to oral Lasix Possible COPD exacerbation Has been on Solu-Medro, has taper to oral prednisone continue tapering Has been on IV Levaquin , we'll switch to oral Continue Xopenex /Atrovent nebulizer to use every 6 hours while awake and every 2 hours when necessary. Repeat a chest x-ray if needed GERD--change omeprazole 20 mg by mouth daily to pantoprazole 40 mg IV daily. Possible debility with Moderate to severe protein Malnutrition, poor by mouth intake, constipation, bowel regimen is and Dulcolax suppository Megace by mouth poor by mouth intake, I called to will like to [id number] talk to him and patient in the bedside leukocytosis likely from the use of solumedrol GI and DVT prophylaxis full code PT OT recommend rehabilitation, I convincing her to go, but patient not ready yet because worry poor by mouth intake poor condition Continued [facility] stay due to: multiple IV medications needed Discharge planning: home
[2016-07-27] MEDS: ACETAMINOPHEN IV 100 ML IV PRN (21:52)
[2016-07-28] VITALS (15 sets, daily range): BP systolic 138–174; BP diastolic 78–106; PULSE 67–103; TEMP 36.8–37.1; O2SAT 92–100
[2016-07-28] MEDS: IPRATROPIUM BROMIDE NEB SOLN 0.02% 2.5 ML VIAL INH SCH ×4 (02:38→19:10)
[2016-07-28] MEDS: LEVALBUTEROL 1.25MG/0.5ML NEB INH SCH ×4 (02:38→19:10)
[2016-07-28] MEDS: MECLIZINE HCL 25 MG TAB PO SCH ×3 (05:11→21:47)
[2016-07-28] MEDS: METOPROLOL TARTRATE 25 MG TAB PO SCH ×2 (05:11→21:47)
--- NOTE | 2016-07-28 07:50 | Progress Note ---
Subjective Date of Service: Jul 28, 2016. Subjective Pt evaluation today including: conversation w/ patient, conversation w/ family , physical exam, chart review, lab review, review of studies, conversation w/ licensed tax consultant, review of inpatient medication list Has a small bowel movement 2 days ago, no bowel movement today, continue to fill no appetite, no abdominal distention, no nausea vomiting, report some left flank pain, generally feeling weak Problem List Medical Problems: (1) Acute CVA (cerebrovascular accident) Status: Acute (2) Anemia Status: Chronic (3) Cachexia Status: Acute (4) CHF (congestive heart failure) Status: Chronic (5) Confusion Status: Acute (6) Dehydration Status: Acute (7) Dehydration Status: Acute (8) Dehydration Status: Acute (9) Fall Status: Acute (10) Generalized weakness Status: Acute (11) Generalized weakness Status: Acute (12) Loss of appetite Status: Acute (13) Multiple fractures of ribs of left side Status: Acute (14) Pleural effusion Status: Acute (15) Shortness of breath Status: Acute (16) Urinary tract infection Status: Acute Review of Systems Constitutional: + fatigue, + weakness, No chills, No fever, No problem reported , No sweats, No weight loss Eyes: No diplopia, No discharge, No eye pain, No redness, No worsening of vision ENT: No dental problems, No hearing loss, No nasal symptoms, No sore throat, No tinnitus, No trouble swallowing, No unusual epistaxis Respiratory: No cough, No dyspnea at rest, No dyspnea on exertion, No hemoptysis, No shortness of breath, No sputum, No wheezing Cardiac: No PND, No chest pain, No claudication, No edema, No orthopnea, No palpitations Abdomen: + constipation, No diarrhea, No nausea, No pain, No vomiting Musculoskeletal: No calf pain, No joint pain, No muscle pain, No swelling Female : No abnormal vaginal bleeding, No dysuria, No hematuria, No incontinence, No urinary frequency, No vaginal discharge Neurologic: No balance problems, No memory loss, No numbness/tingling, No paralysis, No vertigo, No weakness Psychiatric: No anhedonism, No anxiety, No depression symptoms, No insomnia, No substance abuse Heme: No abnormal bleeding/bruising, No clotting problems, No night sweats, No swollen lymph nodes Endo: No excessive thirst, No excessive urination, No fatigue Skin: No bleeding, No color change, No itch, No new/changing skin lesions, No rash Objective Vital Signs Date Time Temp Pulse Resp B/P Pulse Ox O2 Delivery O2 Flow Rate FiO2 07/28/16 07:36 36.8 67 156/87 100 07/28/16 07:31 74 20 92 Nasal Cannula 2.0 07/28/16 06:34 69 159/84 07/28/16 05:02 36.9 81 20 174/103 98 Nasal Cannula 2.5 174/106 07/28/16 04:00 Nasal Cannula 2.0 07/28/16 00:25 36.8 86 22 169/78 98 Nasal Cannula 2.5 07/28/16 00:00 Nasal Cannula 2.0 07/27/16 21:39 92 145/81 07/27/16 20:00 100 Nasal Cannula 2.0 07/27/16 19:53 37.0 77 18 170/99 100 161/92 07/27/16 18:55 78 20 98 Nasal Cannula 2.0 07/27/16 16:00 100 Nasal Cannula 2.0 07/27/16 15:50 36.6 82 16 147/99 100 2.0 07/27/16 14:49 72 16 98 Nasal Cannula 2.0 07/27/16 12:00 98 Nasal Cannula 2.0 07/27/16 11:32 36.6 79 16 143/86 98 3.0 07/27/16 08:00 97 Nasal Cannula 2.0 07/27/16 07:51 36.8 80 16 152/93 97 Physical Exam General Appearance: WD/WN, no apparent distress, + thin, + pertinent finding ( very frail) Eyes: normal inspection, PERRL, EOMI, sclerae normal ENT: normal ENT inspection, hearing grossly normal, pharynx normal Neck: supple, no adenopathy, thyroid normal, no JVD, no carotid bruits, trachea midline Respiratory/Chest: chest non-tender, normal breath sounds, no respiratory distress, no accessory muscle use, + decreased breath sounds Cardiovascular: regular rate, rhythm, no edema, no gallop, no JVD, no murmur Abdomen: non tender, soft, no organomegaly, no pulsatile mass, + abnormal bowel sounds, + pertinent finding (mild distended compared to yesterday) Extremities: normal range of motion, non-tender, normal inspection, no pedal edema, no calf tenderness, normal capillary refill, pelvis stable 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: 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 with dysarthria and left upper extremity weakness : Continue stable CT of the head shows small vessel disease, no acute findings. No evidence of an acute or subacute infarct on recently completed MRI. Neuro on the case, continue aspirin, PTOT, outpatient follow up with neuro Possible acute on chronic CHF is a patient: Stable Has been on furosemide 40 mg IV, changed to oral Lasix Possible COPD exacerbation Has been on Solu-Medro, has taper to oral prednisone, continue tapering Has been on IV Levaquin , we'll switch to oral, 6/7 days Continue Xopenex /Atrovent nebulizer to use every 6 hours while awake and every 2 hours when necessary. Repeat a chest x-ray if needed GERD--change omeprazole 20 mg by mouth daily to pantoprazole 40 mg IV daily. Constipation: We'll try fleet in edema Possible debility with Moderate to severe protein Malnutrition, poor by mouth intake, Scheduling Agent consulted: Per Recommendations: Provide [place] Breakfast Essentials BID w/meals (500 kcal, 26 g protein/day), MVI w/minerals daily and Ca++ w/Vit D supplementation d/t osteoporosis, ordered Constipation, bowel regimen is and Dulcolax suppository Megace by mouth leukocytosis likely from the use of solumedrol GI and DVT prophylaxis Do not resuscitation PT OT recommend rehabilitation, I convincing her to go, but patient not ready yet because worry poor by mouth intake poor condition Patient and together were discussed, above patient's conditions and care plan, encourage by mouth intake, convince her to do no fleet edema, and confirm with patient and about CODE STATUS, which is do not resuscitation Continued [facility] stay due to: multiple IV medications needed Discharge planning: home
[2016-07-28] MEDS: DOCUSATE SODIUM 100 MG CAP PO SCH ×2 (08:26→21:47)
[2016-07-28] MEDS: MEGESTROL ACETATE SUSP 400 MG/10 ML UDC PO SCH (08:26)
[2016-07-28] MEDS: ASPIRIN 81 MG ECTAB PO SCH (08:26)
[2016-07-28] MEDS: ALPRAZOLAM 0.25 MG TAB PO PRN ×3 (08:29→21:48)
[2016-07-28] MEDS: INSULIN ASPART 100 UNITS/ML 3 ML PEN SC SCH ×4 (08:32→21:00)
[2016-07-28 08:40] LABS: BUN/CREATININE RATIO 46.9 (10-20); CALCIUM 8.5 mg/dl (8.5-10.1); CREATININE 0.93 mg/dl (0.60-1.20); MAGNESIUM 2.6 mg/dl (1.8-2.4); PHOSPHORUS 2.4 mg/dl (2.5-4.9); POTASSIUM 4.5 mmol/L (3.5-5.1)
[2016-07-28] MEDS: MULTIVITAMIN TAB PO SCH (09:11)
[2016-07-28] MEDS: CALCIUM 600MG + VIT D 400 IU TAB PO SCH ×2 (09:11→21:46)
[2016-07-28] MEDS: LEVOFLOXACIN 250 MG TAB PO SCH (10:31)
[2016-07-28] MEDS: HEPARIN SOD 5000 UNIT/0.5 ML CARP SQ SCH ×2 (10:32→21:50)
[2016-07-28] MEDS: KETOROLAC TROMETHAMINE 15 MG/ML VIAL IV. PRN (10:32)
[2016-07-28] MEDS ORDERED: NURSING VERBAL MED ORDER ONE (13:00)
[2016-07-28] MEDS ORDERED: SOD PHOSPHATE/SOD BIPHOSPHATE ENEMA 132 ML BTL ONE (13:06)
[2016-07-28 17:25] LABS: MAGNESIUM 2.4 mg/dl (1.8-2.4); PHOSPHORUS 2.4 mg/dl (2.5-4.9)
[2016-07-28] MEDS: ONDANSETRON INJ 2 MG/ML 2 ML VIAL IV PRN (17:51)
[2016-07-28] MEDS: ACETAMINOPHEN IV 100 ML IV PRN (17:52)
[2016-07-29] VITALS (11 sets, daily range): BP systolic 124–156; BP diastolic 76–91; PULSE 74–90; TEMP 36.3–37.2; O2SAT 96–100
[2016-07-29] MEDS: IPRATROPIUM BROMIDE NEB SOLN 0.02% 2.5 ML VIAL INH SCH ×4 (02:00→19:00)
[2016-07-29] MEDS: LEVALBUTEROL 1.25MG/0.5ML NEB INH SCH ×4 (02:00→19:00)
[2016-07-29] MEDS: MECLIZINE HCL 25 MG TAB PO SCH ×3 (05:39→21:06)
[2016-07-29 05:42] LABS: HEMATOCRIT 33.5 % (37-47); MEAN CELL VOLUME 79.6 fL (80-100); MEAN CORPUSCULAR HEMOGLOBIN 24.5 pg (25-34); MEAN CORPUSCULAR HGB CONC 30.7 g/dl (32-36); MEAN PLATELET VOLUME 9.4 fL (7.4-10.4); PLATELET COUNT 208 K/uL (130-400); RED BLOOD COUNT 4.21 M/uL (4.2-5.4); WHITE BLOOD COUNT 10.47 K/uL (4.8-10.8)
[2016-07-29] MEDS: INSULIN ASPART 100 UNITS/ML 3 ML PEN SC SCH ×4 (07:58→20:32)
[2016-07-29] MEDS: METOPROLOL TARTRATE 25 MG TAB PO SCH ×2 (08:00→21:06)
[2016-07-29] MEDS: CALCIUM 600MG + VIT D 400 IU TAB PO SCH ×2 (08:00→21:06)
[2016-07-29] MEDS: DOCUSATE SODIUM 100 MG CAP PO SCH ×2 (08:01→21:11)
[2016-07-29] MEDS: MEGESTROL ACETATE SUSP 400 MG/10 ML UDC PO SCH (08:25)
[2016-07-29] MEDS: MULTIVITAMIN TAB PO SCH (08:25)
[2016-07-29] MEDS: ASPIRIN 81 MG ECTAB PO SCH (08:26)
[2016-07-29] MEDS: ONDANSETRON INJ 2 MG/ML 2 ML VIAL IV PRN (08:42)
[2016-07-29] MEDS: ALPRAZOLAM 0.25 MG TAB PO PRN (08:46)
[2016-07-29] MEDS: HEPARIN SOD 5000 UNIT/0.5 ML CARP SQ SCH ×2 (10:22→21:13)
[2016-07-29] MEDS: LEVOFLOXACIN 250 MG TAB PO SCH (10:23)
[2016-07-29] MEDS ORDERED: NURSING VERBAL MED ORDER ONE (11:15)
[2016-07-29] MEDS ORDERED: ALPRAZOLAM 0.25 MG TAB PO SCH (11:35)
--- NOTE | 2016-07-29 16:51 | Progress Note ---
Subjective Date of Service: Jul 29, 2016. Subjective Pt evaluation today including: conversation w/ patient, conversation w/ family , physical exam, chart review, lab review, review of studies, review of inpatient medication list Continue to be significantly weak, anxious, insomnia, and poor by mouth intake Problem List Medical Problems: (1) Acute CVA (cerebrovascular accident) Status: Acute (2) Anemia Status: Chronic (3) Cachexia Status: Acute (4) CHF (congestive heart failure) Status: Chronic (5) Confusion Status: Acute (6) Dehydration Status: Acute (7) Dehydration Status: Acute (8) Dehydration Status: Acute (9) Fall Status: Acute (10) Generalized weakness Status: Acute (11) Generalized weakness Status: Acute (12) Loss of appetite Status: Acute (13) Multiple fractures of ribs of left side Status: Acute (14) Pleural effusion Status: Acute (15) Shortness of breath Status: Acute (16) Urinary tract infection Status: Acute Review of Systems Constitutional: + fatigue, + weakness, No chills, No fever, No problem reported , No sweats, No weight loss Eyes: No diplopia, No discharge, No eye pain, No redness, No worsening of vision ENT: No dental problems, No hearing loss, No nasal symptoms, No sore throat, No tinnitus, No trouble swallowing, No unusual epistaxis Respiratory: No cough, No dyspnea at rest, No dyspnea on exertion, No hemoptysis, No shortness of breath, No sputum, No wheezing Cardiac: No PND, No chest pain, No claudication, No edema, No orthopnea, No palpitations Abdomen: No constipation, No diarrhea, No nausea, No pain, No vomiting Musculoskeletal: No calf pain, No joint pain, No muscle pain, No swelling Female : No abnormal vaginal bleeding, No dysuria, No hematuria, No incontinence, No urinary frequency, No vaginal discharge Neurologic: No balance problems, No memory loss, No numbness/tingling, No paralysis, No vertigo, No weakness Psychiatric: No anhedonism, No anxiety, No depression symptoms, No insomnia, No substance abuse Heme: No abnormal bleeding/bruising, No clotting problems, No night sweats, No swollen lymph nodes Endo: No excessive thirst, No excessive urination, No fatigue Skin: No bleeding, No color change, No itch, No new/changing skin lesions, No rash Objective Vital Signs Date Time Temp Pulse Resp B/P Pulse Ox O2 Delivery O2 Flow Rate FiO2 07/29/16 16:00 Nasal Cannula 2.0 07/29/16 15:43 36.8 84 20 129/84 98 2.0 07/29/16 12:00 100 Nasal Cannula 2.0 07/29/16 11:34 36.3 83 16 130/83 96 Nasal Cannula 3.0 07/29/16 08:00 100 Nasal Cannula 2.0 07/29/16 06:59 86 20 98 Nasal Cannula 3.0 07/29/16 06:57 36.7 86 16 156/91 98 Nasal Cannula 3.0 07/29/16 04:00 36.7 83 18 142/88 100 3.0 07/29/16 04:00 Nasal Cannula 2.0 07/29/16 00:08 37.2 90 20 150/90 100 Nasal Cannula 2.5 07/29/16 00:00 Nasal Cannula 2.0 07/28/16 21:26 101 138/81 07/28/16 20:00 98 Nasal Cannula 2.0 07/28/16 19:44 37.0 103 22 151/89 96 Nasal Cannula 2.5 07/28/16 19:10 80 20 98 Nasal Cannula 2.0 Physical Exam General Appearance: WD/WN, no apparent distress, + cachetic, + thin, + pertinent finding (frail warty week) Eyes: normal inspection, PERRL, EOMI, sclerae normal ENT: normal ENT inspection, hearing grossly normal, pharynx normal Neck: supple, no adenopathy, thyroid normal, no JVD, no carotid bruits, trachea midline Respiratory/Chest: normal breath sounds, no respiratory distress, no accessory muscle use, + decreased breath sounds Cardiovascular: regular rate, rhythm, no edema, no gallop, no JVD, no murmur Abdomen: normal bowel sounds, non tender, soft, no organomegaly, no pulsatile mass Extremities: normal range of motion, non-tender, normal inspection, no pedal edema, no calf tenderness, normal capillary refill, pelvis stable 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: 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 as 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, no motor/sensory deficits, alert, normal mood/affect, oriented x 3 Skin: normal color, warm/dry, no rash Lymphatic: no adenopathy Laboratory Results Last 24 Hours Test 07/28/16 20:03 07/29/16 05:24 07/29/16 07:57 07/29/16 11:30 Bedside Glucose 135 mg/dl 126 mg/dl 141 mg/dl White Blood Count 10.47 K/uL Red Blood Count 4.21 M/uL Hemoglobin 10.3 g/dL Hematocrit 33.5 % Mean Corpuscular Volume 79.6 fL Mean Corpuscular Hemoglobin 24.5 pg Mean Corpuscular Hemoglobin Concent 30.7 g/dl RDW Standard Deviation 54.3 fL RDW Coefficient of Variation 18.7 % Platelet Count 208 K/uL Mean Platelet Volume 9.4 fL Test 07/29/16 16:26 Bedside Glucose 136 mg/dl Assessment and Plan 76-year-old white female admitted on 07/23/2016, because of possible Subacute right hemispheric CVA with left-sided weakness, For the TIA symptom has been stable, however she has very poor by mouth intake and possible debility and anxiety, possible TIA. with dysarthria and left upper extremity weakness : Continue stable CT of the head shows small vessel disease, no acute findings. No evidence of an acute or subacute infarct on recently completed MRI. Neuro on the case, continue aspirin, PTOT, outpatient follow up with neuro Possible acute on chronic CHF is a patient: Stable Has been on furosemide 40 mg IV, changed to oral Lasix Possible COPD exacerbation Has been on Solu-Medro, has taper to oral prednisone, continue tapering Has been on IV Levaquin , switched to oral, 7/7 days, has complete antibiotic treatment Continue Xopenex /Atrovent nebulizer to use every 6 hours while awake and every 2 hours when necessary. Repeat a chest x-ray if needed GERD--change omeprazole 20 mg by mouth daily to pantoprazole 40 mg IV daily. 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: Per Recommendations: Provide [place] Breakfast Essentials BID w/meals (500 kcal, 26 g protein/day), MVI w/minerals daily and Ca++ w/Vit D supplementation d/t osteoporosis, ordered Constipation, bowel regimen is and Dulcolax suppository Megace by mouth leukocytosis likely from the use of solumedrol Anxiety and insomnia, treated with Trazodone by mouth at bedtime and Xanax as needed GI and DVT prophylaxis Do not resuscitation PT OT recommend rehabilitation, I convincing her to go, but patient not ready yet because worry poor by mouth intake poor condition do not resuscitation Continued [facility] stay due to: multiple IV medications needed Discharge planning: home
[2016-07-29] MEDS ORDERED: ALPRAZOLAM 0.5 MG TAB PO PRN (17:15)
[2016-07-29] MEDS: ALPRAZOLAM 0.5 MG TAB PO PRN (17:21)
[2016-07-29] MEDS: MAGNESIUM OXIDE 400 MG TAB PO SCH (21:05)
[2016-07-29] MEDS: TRAZODONE HCL 50 MG TAB PO SCH (21:08)
[2016-07-29] MEDS: FLUTICASONE/SALMETEROL 250/50 (ADVAIR) 14 PUFF/1 INHALER INH SCH (21:08)
[2016-07-30] VITALS (7 sets, daily range): BP systolic 113–132; BP diastolic 74–84; PULSE 77–101; TEMP 36.5–36.9; O2SAT 93–96
[2016-07-30] MEDS: ALPRAZOLAM 0.5 MG TAB PO PRN (01:42)
[2016-07-30] MEDS: LEVALBUTEROL 1.25MG/0.5ML NEB INH SCH ×4 (02:00→19:10)
[2016-07-30] MEDS: IPRATROPIUM BROMIDE NEB SOLN 0.02% 2.5 ML VIAL INH SCH ×4 (02:00→19:10)
[2016-07-30] MEDS: MECLIZINE HCL 25 MG TAB PO SCH ×3 (06:05→21:03)
[2016-07-30] MEDS: MoRPHine SULFATE 2 MG/ML CARP IV PRN (06:08)
[2016-07-30] MEDS: FLUTICASONE/SALMETEROL 250/50 (ADVAIR) 14 PUFF/1 INHALER INH SCH ×2 (08:16→21:03)
[2016-07-30] MEDS: CALCIUM 600MG + VIT D 400 IU TAB PO SCH ×2 (08:17→21:00)
[2016-07-30] MEDS: ASPIRIN 81 MG ECTAB PO SCH (08:18)
[2016-07-30] MEDS: ESCITALOPRAM OXALATE 10 MG TAB PO SCH (08:18)
[2016-07-30] MEDS: RANITIDINE HCL 150 MG TAB PO SCH (08:19)
[2016-07-30] MEDS: CHOLECALCIFEROL 1000 INTER.UNIT TAB PO SCH (08:19)
[2016-07-30] MEDS: PANTOprazole SOD 40 MG TAB PO SCH (08:19)
[2016-07-30] MEDS: HEPARIN SOD 5000 UNIT/0.5 ML CARP SQ SCH ×2 (08:21→21:08)
[2016-07-30] MEDS: INSULIN ASPART 100 UNITS/ML 3 ML PEN SC SCH ×4 (08:23→20:37)
[2016-07-30] MEDS: DOCUSATE SODIUM 100 MG CAP PO SCH ×2 (08:24→21:02)
[2016-07-30] MEDS: MEGESTROL ACETATE SUSP 400 MG/10 ML UDC PO SCH (08:25)
[2016-07-30] MEDS: MULTIVITAMIN TAB PO SCH (08:26)
[2016-07-30] MEDS: METOPROLOL TARTRATE 25 MG TAB PO SCH ×2 (08:26→21:03)
[2016-07-30] MEDS: MAGNESIUM OXIDE 400 MG TAB PO SCH ×2 (08:27→21:00)
--- NOTE | 2016-07-30 10:39 | Hospitalist Progress Note ---
Hospitalist Progress Note Date of Service Jul 30, 2016. (Ai Carlton PA-C) Subjective Pt evaluation today including: conversation w/ patient, physical exam, chart review, lab review, review of studies, review of inpatient medication list Patient currently has no complaints. She wants to go home. Denies any chest pain, difficulty breathing, dizziness, nausea or vomiting. She does admit to being constipated. She is unsure of her last bowel movement. She admits to feeling tired Additional Comments: 6 system review negative. Please see pertinent positives in the history of present illness section. (Ai Carlton PA-C) Objective Vital Signs Date Time Temp Pulse Resp B/P Pulse Ox O2 Delivery O2 Flow Rate FiO2 07/30/16 08:00 Nasal Cannula 2.0 07/30/16 07:27 36.7 101 16 113/74 94 Nasal Cannula 2.0 07/30/16 07:07 93 20 93 Nasal Cannula 2.0 07/30/16 04:26 36.5 77 20 115/76 95 Nasal Cannula 2.5 07/30/16 00:00 Nasal Cannula 2.0 07/29/16 23:09 36.6 74 22 124/83 97 Nasal Cannula 2.5 07/29/16 19:48 36.5 90 20 127/76 97 Nasal Cannula 2.5 07/29/16 19:00 86 20 98 Nasal Cannula 3.0 07/29/16 16:00 Nasal Cannula 2.0 07/29/16 15:43 36.8 84 20 129/84 98 2.0 07/29/16 12:00 100 Nasal Cannula 2.0 07/29/16 11:34 36.3 83 16 130/83 96 Nasal Cannula 3.0 (Ai Carlton PA-C) Physical Exam General Appearance: + mild distress (drowsy in appearance.) Eyes: EOMI ENT: + pertinent finding (oral mucosa somewhat dry. No exudate noted.) Neck: no JVD Respiratory/Chest: lungs clear Cardiovascular: regular rate, rhythm, no murmur Abdomen: normal bowel sounds, non tender, soft Extremities: non-tender, no pedal edema 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: alert (alert and answering questions appropriately, however drowsy. Left-sided weakness noted.) Skin: warm/dry (Ai Carlton PA-C) Laboratory Results Test 07/30/16 07:42 Bedside Glucose 116 mg/dl (70-90) Last 24 Hours Test 07/29/16 11:30 07/29/16 16:26 07/29/16 20:26 07/30/16 07:42 Bedside Glucose 141 mg/dl 136 mg/dl 118 mg/dl 116 mg/dl (Ai Carlton, MARIE) Assessment and Plan 76-year-old white female admitted on 07/23/2016, because of possible Subacute right hemispheric CVA with left-sided weakness, TIA symptom has been stable, however she has very poor by mouth intake and possible debility and anxiety, possible TIA +/- gait dysfunction left upper extremity weakness : Weakness remains unchanged. CT of the head shows small vessel disease, no acute findings. No evidence of an acute or subacute infarct on recently completed MRI. Neuro on the case, continue aspirin, PTOT, outpatient follow up with neuro Possible acute on chronic CHF: O2 stable no signs of fluid overload on exam Has been on furosemide 40 mg IV, changed to oral Lasix Chronic respiratory failure/Possible COPD exacerbation Has been on Solu-Medro, has taper to oral prednisone. Current dose 20 mg--> reduce to 10 mg daily today x 2 days then d/c Completed 7 day course of Levaquin Continue Xopenex /Atrovent nebulizer to use every 6 hours while awake and every 2 hours when necessary. GERD Pantoprazole 40 mg daily Brief episode of A fib vs A tach -Cards consult appreciated. No need for AC as of now -Continue Metoprolol 25 mg po BID ? Oversedation Decrease Xanax to 0.5 mg po every 8 hours as needed Moderate to severe protein Malnutrition, poor by mouth intake, Rod Machine Operator consulted: Per Recommendations: Provide [place] Breakfast Essentials BID w/meals (500 kcal, 26 g protein/day), MVI w/minerals daily and Ca++ w/Vit D supplementation d/t osteoporosis, ordered Constipation Continue colace 100 mg bid Add dulcolax 5 mg po daily Anxiety and insomnia Continue trazadone at current dose Decrease Xanax as noted above DISPO PT/OT RE EVAL pending I do not think this patient is a candidate for rehabilitation. Extended-care facility is more appropriate in my opinion. This was not received well per family. Stable for d/c from a medical standpoint CODE STATUS -LEVEL V DO NO RESUSCITATE This chart was completed in part utilizing [employer] Speech Voice Recognition software. Attempts were made to minimize the grammatical errors, random word insertions, pronoun errors and incomplete sentences. Any formal questions or concerns about the content, text or information contained within the body of this dictation should be directly addressed to the provider for clarification. (Ai Carlton, MARIE) Reviewed: Pt Seen/Exam by Me (Valerie Munoz, DO) History Pt is still feeling tired and weak. She did not eat much lunch due to no appetite. No n/v. Agree with HPI/ROS as noted. Family is not present to clarify details. (Valerie Munoz, ) General Appearance: no apparent distress, cachetic Respiratory: normal breath sounds, no respiratory distress Cardiovascular: normal peripheral pulses, regular rate, rhythm Gastrointestinal: non tender, soft Extremities: non-tender, no pedal edema 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: alert, other (tired, answers questions briefly) Skin Characteristics: normal color, warm/dry (Valerie Munoz, ) Assessment/Plan Agree with plan as outlined above TIA initially, now with FTT that was POA Decreasing xanax dosing given drowsiness Question for placement (Valerie Munoz, DO)
[2016-07-30] MEDS: BISACODYL 5 MG TABEC PO SCH (13:47)
[2016-07-30] MEDS ORDERED: ALPRAZOLAM 0.5 MG TAB PO PRN (14:00)
[2016-07-30] MEDS: TRAZODONE HCL 50 MG TAB PO SCH (21:13)
[2016-07-31] VITALS: BP 113/76; PULSE 81; TEMP 36.8; O2SAT 95
[2016-07-31] MEDS: LEVALBUTEROL 1.25MG/0.5ML NEB INH SCH ×3 (01:55→14:50)
[2016-07-31] MEDS: IPRATROPIUM BROMIDE NEB SOLN 0.02% 2.5 ML VIAL INH SCH ×3 (01:55→14:50)
[2016-07-31] MEDS: MECLIZINE HCL 25 MG TAB PO SCH (05:40)
[2016-07-31] MEDS: FLUTICASONE/SALMETEROL 250/50 (ADVAIR) 14 PUFF/1 INHALER INH SCH (07:18)
[2016-07-31] MEDS: ASPIRIN 81 MG ECTAB PO SCH (07:19)
[2016-07-31] MEDS: PANTOprazole SOD 40 MG TAB PO SCH (07:19)
[2016-07-31] MEDS: DOCUSATE SODIUM 100 MG CAP PO SCH (07:19)
[2016-07-31] MEDS: RANITIDINE HCL 150 MG TAB PO SCH (07:19)
[2016-07-31] MEDS: MULTIVITAMIN TAB PO SCH (07:20)
[2016-07-31] MEDS: CALCIUM 600MG + VIT D 400 IU TAB PO SCH (07:20)
[2016-07-31] MEDS: CHOLECALCIFEROL 1000 INTER.UNIT TAB PO SCH (07:20)
[2016-07-31] MEDS: BISACODYL 5 MG TABEC PO SCH (07:21)
[2016-07-31] MEDS: MAGNESIUM OXIDE 400 MG TAB PO SCH (07:21)
[2016-07-31] MEDS: MEGESTROL ACETATE SUSP 400 MG/10 ML UDC PO SCH (07:22)
[2016-07-31] MEDS: ESCITALOPRAM OXALATE 10 MG TAB PO SCH (07:22)
[2016-07-31] MEDS: HEPARIN SOD 5000 UNIT/0.5 ML CARP SQ SCH (07:29)
[2016-07-31] MEDS: METOPROLOL TARTRATE 25 MG TAB PO SCH (07:32)
[2016-07-31 07:45] VITALS: BP 110/80; PULSE 123; TEMP 36.6; O2SAT 97
[2016-07-31] MEDS: INSULIN ASPART 100 UNITS/ML 3 ML PEN SC SCH ×2 (09:39→14:19)
[2016-07-31] MEDS ORDERED: ATRINS INH (13:00)
[2016-07-31] MEDS ORDERED: DLC5 PO (13:00)
[2016-07-31] MEDS ORDERED: CLC100 PO (13:00)
[2016-07-31] MEDS ORDERED: PRD10 PO (13:00)
[2016-07-31] MEDS ORDERED: DSY50 PO (13:00)
[2016-07-31] MEDS ORDERED: MGCUDL400 PO (13:00)
[2016-07-31] MEDS ORDERED: XNX5 PO (13:00)
[2016-07-31] MEDS ORDERED: CALCTAB7 PO (13:00)
[2016-07-31] MEDS ORDERED: ASPEC81 PO (13:00)
[2016-07-31] MEDS ORDERED: ANT25 PO (13:00)
--- NOTE | 2016-07-31 13:09 | Discharge Instructions ---
Discharge Instructions Date of Service Jul 31, 2016. Admission Reason for Admission: Acute Chf, Acute Cva Discharge Discharge Diagnosis / Problem: TIA Discharge Goals Goal(s): Decrease discomfort, Improve function, Increase independence Activity Recommendations Activity Level: Assistance Required Therapies: Physical Therapy, Occupational Therapy . Additional Information Patient informed of condition: Yes Advance Directives: Yes DNR: Yes Level of Care: Acute Rehab Communicable Disease: No Prognosis: Stable Instructions / Follow-Up Instructions / Follow-Up Call 911 and go to the Emergency Room if: * You have tightness or pain in your chest that does not go away with rest or Nitroglycerin * You are very short of breath even with rest Call your doctor if any of the following symptoms or problems start or get worse: * Shortness of breath or difficulty breathing * Wake up at night short of breath * Chest pain * Cough * Swelling of your hands, fee, or legs * More fatigued or tired with your normal activity * Palpitations - sudden fast heart beats WEIGHT * Weigh yourself every morning after using the bathroom. * Use the same scale. * Wear the same amount of clothing. * Write your weight down on your chart. * Call your doctor if you gain more than 2-3 pounds in 1-2 days. MEDICATIONS * Use this discharge instruction sheet for instructions. * Take your medications at the time your doctor ordered. * Do not skip a dose of your medicines. * If you miss a dose of medicine, take as soon as possible, but DO NOT DOUBLE A DOSE. * Read your medicine information when you get home. * Know all of the side effects of your medicine. * Call your doctor's office if you have any side effects. * Be sure all of your doctors know what medicine and herbs you take (including cold, flu, and herbal medicine). * Pain Medicine: If you do not get relief from your pain, please call your doctor for help. Take the following with you to your follow-up doctor appointments: * Weight Chart * Medication List * List of questions Do not drink excessive alcohol, beer or wine. Current Hospital Diet Patient's current hospital diet: Regular Diet Discharge Diet Recommended Diet: AHA Diet (Heart Healthy) Diet Texture: Mechanical Soft (ground) Liquid Consistency: [place] Thick Pending Studies Studies pending at discharge: no Physician Orders On Transfer Additional Orders: Check BS ACHS, may need further SSI, however needs have been decreasing with steroid taper and will likely not need further SSI moving forward. Dr. Valencia in 1-[address] Kwok if ongoing concern for possible need for loop recorder Would recommend further decrease of xanax dosing and/or tramadol as able. Laboratory Results Hemoglobin A1c Test 07/23/16 04:50 Range/Units Estimated Average Glucose 103 mg/dl Hemoglobin A1c 5.2 4.5-5.6 % Lipid Panel Test 07/24/16 06:37 Range/Units Triglycerides Level 111 0-150 mg/dl Cholesterol Level 137 0-200 mg/dl HDL Cholesterol 47 mg/dl Cholesterol/HDL Ratio 2.9 LDL Cholesterol, Calculated 68 mg/dl Medical Emergencies . Who to Call and When: Medical Emergencies: If at any time you feel your situation is an emergency, please call 911 immediately. . Non-Emergent Contact Non-Emergency issues call your: Primary Care Provider . . "Provider Documentation" section prepared by Valerie Munoz. Core Measure Problem Core Measures: None
--- NOTE | 2016-07-31 13:13 | Discharge Summary ---
Discharge Summary Date of Service Jul 31, 2016. Discharge Summary Admission Date: Jul 23, 2016 at 06:59 Discharge Date: Jul 31, 2016 Discharge Disposition: Rehab Principal Diagnosis: TIA with FTT Problems/Secondary Diagnoses: (1) Anemia Status: Chronic (2) CHF (congestive heart failure) Status: Chronic Severe protein calorie malnutrition CHF Anxiety/depression HTN Hx of PUD Parkinson's O2 dependent 2L Compression fracture Immunizations: Have You Had Influenza Vaccine: No History of Tetanus Vaccine?: Yes Tetanus Immunization Date: Oct 26, 2006 History of Pneumococcal: No History of Hepatitis B Vaccine: No Consultations: Neuro Cardiology Medication Reconciliation New Medications: Alprazolam (Alprazolam) 0.5 Mg Tab 0.5 MG PO Q8 PRN for Anxiety for 30 Days, #90 TAB Aspirin (Aspirin EC Low Dose) 81 Mg Ectab 81 MG PO QAM for 30 Days Bisacodyl (Bisacodyl EC) 5 Mg Tabec 5 MG PO DAILY for 30 Days Calcium Carbonate-Vitamin D W/ (Caltrate 600 Plus) 1 Tab Tab 1 TAB PO BID for 30 Days, #60 TAB Docusate Sodium (Docusate Sodium) 100 Mg Cap 100 MG PO BID for 30 Days, #60 CAP Ipratropium [place] (Ipratropium [place]) 0.5 Mg/2.5 Ml Nebu 0.5 MG INH Q6R for 30 Days Meclizine HCl (Meclizine HCl) 25 Mg Tab 25 MG PO Q8 PRN for Dizziness or Vertigo for 30 Days, #90 TAB Megestrol Acetate (Megestrol Acetate) 400 Mg/10 Ml Susp 400 MG PO QAM for 30 Days Prednisone (Prednisone) 10 Mg Tab 10 MG PO DAILY for 1 Day, #1 TAB Trazodone HCl (Trazodone HCl) 50 Mg Tab 25 MG PO HS for 30 Days, TAB Continued Medications: Acetaminophen (Tylenol) 500 Mg Tab 500 MG PO Q4 PRN for Pain, TAB Cholecalciferol (Vitamin D3) 2,000 Unit Cap 1 CAP PO DAILY for 90 Days, #90 CAP 3 Refills Escitalopram Oxalate (Escitalopram Oxalate) 10 Mg Tab 10 MG PO DAILY Fluticasone Prop/Salmeterol (Advair Diskus 250/50 60 Dose) 1 Ea Aerp 1 PUFF INH BID, #1 INHALER 2 Refills Ipratropium-Albuterol (Combivent Respimat) 1 Aer Aer 1 PUFF INH Q6H, #1 INH 2 Refills Magnesium Oxide (Mag-Ox) 400 Mg Tab 400 MG PO BID, TAB Metoprolol Succinate (Metoprolol Succinate ER) 25 Mg Tabcr 25 MG PO DAILY Multiple Vitamin (Multivitamin) 1 Tab Tab 1 TAB PO QAM, TAB Omeprazole (Prilosec) 20 Mg Cap 20 MG PO DAILY Potassium Chloride Microencaps (Potassium Chloride Er) 20 Meq Tab 20 MEQ PO DAILY Ranitidine (Zantac) 150 Mg Tab 150 MG PO DAILY, TAB Discontinued Medications: Alprazolam (Xanax) 1 Mg Tab 1 MG PO Q8 PRN for Anxiety Discharge Exam Pt states she would like to eat jello today. She states she is tired. Denies pain. Pt denies fever, SOB, chest pain, abd pain, n/v/c/d, LE pain or swelling. ROS as noted above, otherwise neg. Spoke with via phone who states his last day of work is tomorrow and that after that time he will be able to care for pt at home once she has finished rehab. 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 TIA sx have been stable, however she has very poor by mouth intake and possible debility and anxiety, possible TIA +/- gait dysfunction left upper extremity weakness : Weakness remains unchanged. CT of the head shows small vessel disease, no acute findings. No evidence of an acute or subacute infarct on recently completed MRI. Evaluated by neuro, continue aspirin 81mg, PT/OT, outpatient follow up with neuro as needed Possible acute on chronic CHF: O2 stable no signs of fluid overload on exam Has been on furosemide 40 mg IV, changed to oral Lasix Chronic respiratory failure/Possible COPD exacerbation Has been on Solu-Medro, has taper to oral prednisone. Current dose 20 mg--> reduce to 10 mg 07/30 and will need one more day to complete course after d/c Completed 7 day course of Levaquin Continue Xopenex /Atrovent nebulizer to use every 6 hours while awake and every 2 hours when necessary. GERD Pantoprazole 40 mg daily Brief episode of A fib vs A tach -Cards consult appreciated. No need for AC as of now -Continue Metoprolol 25 mg po BID ? Oversedation Decrease Xanax to 0.5 mg po every 8 hours PRN has helped (was on 1mg prior) Discussed with Dr. Duggan about possibly decreasing further as needed. Moderate to severe protein Malnutrition, poor by mouth intake, Acute Care Physician consulted: Per Recommendations: Provide [place] Breakfast Essentials BID w/meals (500 kcal, 26 g protein/day), MVI w/minerals daily and Ca++ w/Vit D supplementation d/t osteoporosis, ordered Constipation Continue colace 100 mg bid Add dulcolax 5 mg po daily Anxiety and insomnia Continue trazadone at current dose Decrease Xanax as noted above DISPO PT/OT RE EVAL recs for rehab vs SNF. Pt was accepted to [facility] and will plan for transfer there. I, as well as prior hospitalist and CM have discussed concerns with pt about needing care home SNF placement, however pt and are not interested in this at this time. I do feel that she is a high risk for readmission given her multiple health issues and FTT with severe protein calorie malnutrition. CODE STATUS -LEVEL V DO NO RESUSCITATE Would recommend further decrease of xanax dosing and/or tramadol as able. Check BS ACHS, may need further SSI, however needs have been decreasing with steroid taper and will likely not need further SSI moving forward. I did discuss these concerns with Dr. Duggan as well. Total Time Spent: Greater than 30 minutes This includes examination of the patient, discharge planning, medication reconciliation, and communication with other providers. Discharge Instructions Please refer to the electronic Patient Visit Report (Discharge Instructions) for additional information. Follow-Up Dr. Valencia in 1-[address] Kwok if ongoing concern for possible need for loop recorder Additional Copies To [facility]; Pinky Aiken, VirgilP
[2016-07-31] MEDS ORDERED: ACETAMINOPHEN 325 MG TAB ONE (14:13)
[2016-07-31] MEDS ORDERED: NURSING VERBAL MED ORDER ONE (14:15)
[2016-07-31 14:17] VITALS: BP 110/80; TEMP 36.6; O2SAT 97
[2016-07-31 14:30] VITALS: PULSE 88; O2SAT 96
--- NOTE | 2016-08-08 14:04 | EDITING REQUIRED CODING QUERY ---
Hi CODING QUERY To promote full compliance with coding requirements relating to patient care, provider participation is requested in all cases of screen printer helper uncertainty. Please assist us with the question(s) below: Coding Question(s): Per documentation the patient was admitted with possible CVA; TIA was documented on day 2 and on Discharge summary. Can you clarify if the CVA was ruled out / TIA . Physician's Response(s): Her case was unusual and truthfully it is not entirely clear what really happened to her. However, I would say that for the purpose of coding, her diagnosis should probably be TIA as her deficits resolved and her MRI was negative for acute stroke. Thank you Nancy Myles
== END 2016-07-31 14:55 | DRG 69 ==
LOC: ENRESERVDT → ENRESERVTM → EDBD 05:29 → C.EDB 05:30 → C.MSICU 06:59 → EDBEDREQ 07:30 → C.MED 23:48
PROVIDERS: ADMIT Hospitalist; ATTEND Family Medicine
DX: G45.9 Transient cerebral ischemic attack, unspecified (principal); I50.33 Acute on chronic diastolic (congestive) heart failure; E43 Unspecified severe protein-calorie malnutrition; J96.10 Chronic respiratory failure, unspecified whether with hypoxia or hypercapnia; J44.1 Chronic obstructive pulmonary disease with (acute) exacerbation; G81.94 Hemiplegia, unspecified affecting left nondominant side; K21.9 Gastro-esophageal reflux disease without esophagitis; H40.9 Unspecified glaucoma; F41.9 Anxiety disorder, unspecified; F32.9 Major depressive disorder, single episode, unspecified; I11.0 Hypertensive heart disease with heart failure; D64.9 Anemia, unspecified; G20 Parkinson's disease; M81.0 Age-related osteoporosis without current pathological fracture; F17.200 Nicotine dependence, unspecified, uncomplicated; I48.91 Unspecified atrial fibrillation; K59.00 Constipation, unspecified; G47.00 Insomnia, unspecified

== ENCOUNTER 2016-08-01 09:17 | Inpatient (IN) | payer OTHER ==
[2016-08-01] VITALS (15 sets, daily range): BP systolic 98–148; BP diastolic 63–89; PULSE 101–124; TEMP 36.3–37.2; O2SAT 91–100; Ht 165.1 cm; Wt 49.3 kg
[~2016-08-01] VITALS: Ht 165.1 cm; Wt 49.3 kg
[~2016-08-01 09:17] MED LIST changes: -ALPR-385 PO; +ANT25 PO; +ASPEC81 PO; +ATRINS INH; +CALCTAB7 PO; +CLC100 PO; +DLC5 PO; +DSY50 PO; -LVQ500 PO; +MGCUDL400 PO; +PRD10 PO; -PRD20 PO; +XNX5 PO
[2016-08-01] MEDS ORDERED: SODIUM CHLORIDE 0.9% 500ML 500 ML IV STA (09:40)
--- NOTE | 2016-08-01 09:53 | EMERGENCY ROOM VISIT NOTE ---
History Report prepared by Mary Ellen: Anna Rae Under the Supervision of: Dr. Maynor Soto M.D. First contact with patient: 09:34 Chief Complaint: LETHARGIC Stated Complaint: LETHARGY Nursing Triage Summary: PT HERE VIA ALS FROM [facility], PT PALE, SOB, LETHARGIC. PT WAS TAKEN THERE LAST NIGHT FROM [facility]. PT CANNOT ANSWER WHY SHE WAS HERE. EMS REPORTS THAT STAFF TOLD THEM HER HEMOGLOBIN HAS DROPPED SIGNIFICANTLY SINCE HER ADMISSION THERE. 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 The patient was hospitalized here on July 23 for an acute CVA and CHF. She was discharged from the hospital to [facility] yesterday. Health Staff reportedly told EMS that the patient's hemoglobin dropped from 10.2 last night to 6.2 this morning. History is limited due to the patient's condition. Source of History: EMS, nursing staff History Limited By: other (lethargy) Onset: CLIN APPLICATION SPECIALIST Position: other (global) Quality: other (lethargy) Timing: worsening Review of Systems Limited secondary to the patient's condition. Past Medical & Surgical Medical Problems: (1) Acute blood loss anemia (2) Acute CHF (3) Age related osteoporosis (4) Anemia (5) Anxiety disorder (6) CHF (congestive heart failure) (7) Compression fracture (8) Depression (9) Fall (10) Fall at home (11) Gastric ulcer (12) Glaucoma (13) Hypertension (14) Hypertension Nos (15) Osteoporosis (16) Pancreatitis (17) Parkinsonism (18) Peptic ulcer disease (19) Respiratory failure (20) Right hip pain (21) Slurred speech (22) Stomach ulcer Surgical Problems: (1) Hx of appendectomy (2) S/P colonoscopy (3) S/P endoscopy Family History Cancer (unknown type) MOTHER Heart disease FATHER Social History Smoking Status: Never Smoker Alcohol Use: none Drug Use: none Marital Status: Housing Status: lives with significant other Occupation Status: retired Current/Historical Medications Scheduled Aspirin (Aspirin EC Low Dose), 81 MG PO QAM Bisacodyl (Bisacodyl EC), 5 MG PO DAILY Calcium Carbonate-Vitamin D W/ (Caltrate 600 Plus), 1 TAB PO BID Cholecalciferol (Vitamin D3), 1 CAP PO DAILY Docusate Sodium (Docusate Sodium), 100 MG PO BID Escitalopram Oxalate (Escitalopram Oxalate), 10 MG PO DAILY Fluticasone Prop/Salmeterol (Advair Diskus 250/50 60 Dose), 1 PUFF INH BID Ipratropium [place] (Ipratropium [place]), 0.5 MG INH Q6R Ipratropium-Albuterol (Combivent Respimat), 1 PUFF INH Q6H Magnesium Oxide (Mag-Ox), 400 MG PO BID Megestrol Acetate (Megestrol Acetate), 400 MG PO QAM Metoprolol Succinate (Metoprolol Succinate ER), 25 MG PO DAILY Multiple Vitamin (Multivitamin), 1 TAB PO QAM Omeprazole (Prilosec), 20 MG PO DAILY Potassium Chloride Microencaps (Potassium Chloride Er), 20 MEQ PO DAILY Prednisone (Prednisone), 10 MG PO DAILY Ranitidine (Zantac), 150 MG PO DAILY Trazodone HCl (Trazodone HCl), 25 MG PO HS Scheduled PRN Acetaminophen (Tylenol), 500 MG PO Q4 PRN for Pain Alprazolam (Alprazolam), 0.5 MG PO Q8 PRN for Anxiety Meclizine HCl (Meclizine HCl), 25 MG PO Q8 PRN for Dizziness or Vertigo Allergies Coded Allergies: Oxycodone (Verified Adverse Reaction, Intermediate, NAUSEA, 08/01/16) Codeine (Verified Adverse Reaction, Mild, NAUSEA, 08/01/16) Physical Exam Vital Signs Date Time Temp Pulse Resp B/P Pulse Ox O2 Delivery O2 Flow Rate FiO2 08/01/16 11:20 92 Nasal Cannula 3.0 08/01/16 10:42 115 24 137/109 97 Nasal Cannula 3.0 08/01/16 10:30 118 16 82/63 96 Room Air 08/01/16 10:06 120 08/01/16 09:47 99 Nasal Cannula 4.0 08/01/16 09:47 87 Room Air 08/01/16 09:35 36.8 125 20 91/54 87 Room Air Physical Exam GENERAL: Patient is yellow in appearance, appears very weak. HEAD: Normocephalic atraumatic EYES: Ocular movements intact pupils equal and react to light OROPHARYNX mucous membranes are moist no exudates present no erythema or edema present NECK: Supple no nuchal rigidity CHEST: Good equal expansion LUNGS: Clear and equal to auscultation CARDIAC: Normal S1 and S2 ABDOMEN: Soft nontender no guarding RECTAL: Black melena, heme positive. BACK: No CVA tenderness EXTREMITIES: No pain upon palpation normal muscle strength in all groups no clubbing cyanosis or edema NEURO: Patient is following commands, slow to answer questions. Cranial Nerves 2 -12 grossly intact Medical Decision & Procedures Laboratory Results 08/01/16 09:59 Red Blood Count 2.55, Mean Corpuscular Volume 81.2, Mean Corpuscular Hemoglobin 25.5, Mean Corpuscular Hemoglobin Concent 31.4, Mean Platelet Volume 9.9, Neutrophils (%) (Auto) 83.1, Lymphocytes (%) (Auto) 11.4, Monocytes (%) (Auto) 4.8, Eosinophils (%) (Auto) 0.0, Basophils (%) (Auto) 0.1, Neutrophils # (Auto) 15.61, Lymphocytes # (Auto) 2.14, Monocytes # (Auto) 0.90, Eosinophils # (Auto) 0.00, Basophils # (Auto) 0.01 08/01/16 09:59 Test 08/01/16 09:59 08/01/16 10:06 White Blood Count 18.78 K/uL (4.8-10.8) Red Blood Count 2.55 M/uL (4.2-5.4) Hemoglobin 6.5 g/dL (12.0-16.0) Hematocrit 20.7 % (37-47) Mean Corpuscular Volume 81.2 fL (80-100) Mean Corpuscular Hemoglobin 25.5 pg (25-34) Mean Corpuscular Hemoglobin Concent 31.4 g/dl (32-36) Platelet Count 302 K/uL (130-400) Mean Platelet Volume 9.9 fL (7.4-10.4) Neutrophils (%) (Auto) 83.1 % Lymphocytes (%) (Auto) 11.4 % Monocytes (%) (Auto) 4.8 % Eosinophils (%) (Auto) 0.0 % Basophils (%) (Auto) 0.1 % Neutrophils # (Auto) 15.61 K/uL (1.4-6.5) Lymphocytes # (Auto) 2.14 K/uL (1.2-3.4) Monocytes # (Auto) 0.90 K/uL (0.11-0.59) Eosinophils # (Auto) 0.00 K/uL (0-0.5) Basophils # (Auto) 0.01 K/uL (0-0.2) RDW Standard Deviation 56.2 fL (36.4-46.3) RDW Coefficient of Variation 19.1 % (11.5-14.5) Immature Granulocyte % (Auto) 0.6 % Immature Granulocyte # (Auto) 0.12 K/uL (0.00-0.02) Anisocytosis PRESENT Prothrombin Time 14.7 SECONDS (9.0-12.0) Prothromb Time International Ratio 1.4 (0.9-1.1) Activated Partial Thromboplast Time 23.4 SECONDS (21.0-31.0) Partial Thromboplastin Ratio 0.9 Est Creatinine Clear Calc Drug Dose 45.5 ml/min Estimated GFR () 81.1 Estimated GFR (Non- 70.0 BUN/Creatinine Ratio 70.8 (10-20) Calcium Level 8.5 mg/dl (8.5-10.1) Total Bilirubin 0.5 mg/dl (0.2-1) Direct Bilirubin 0.2 mg/dl (0-0.2) Aspartate Amino Transf (AST/SGOT) 9 U/L (15-37) Alanine Aminotransferase (ALT/SGPT) 12 U/L (12-78) Alkaline Phosphatase 50 U/L (45-117) Total Protein 5.5 gm/dl (6.4-8.2) Albumin 2.7 gm/dl (3.4-5.0) Lipase 157 U/L (73-393) Bedside Hemoglobin 6.8 g/dl (12.0-16.0) Bedside Hematocrit 20 % (37-47) Bedside Sodium 142 mEq/L (135-144) Bedside Potassium 3.8 mEq/L (3.3-5.0) Bedside Chloride 100 mEq/L (101-112) Bedside Total CO2 30 mEq/l (24-31) Anion Gap 17.0 mmol/L (16-25) Bedside Blood Urea Nitrogen 52 mg/dl (7-18) Bedside Creatinine 0.8 mg/dl (0.6-1.3) Bedside Glucose (other) 129 mg/dl (70-99) Bedside Ionized Calcium (Cj) 1.10 mmol/l (1.12-1.32) Labs reviewed by ED physician. Medications Administered Medications (Trade) Dose Ordered Sig/[place] Route Start Time Stop Time Status Last Admin Dose Admin Sodium Chloride (Nss 500ml) 500 ml @ 999 mls/hr Q31M STAT IV 08/01/16 09:40 08/01/16 10:10 DC 08/01/16 10:41 999 MLS/HR Pantoprazole Sodium 1 ea 1 ea NOW STAT IV 08/01/16 10:41 08/01/16 10:43 DC 08/01/16 10:41 1 EA Pantoprazole Sodium 80 mg/ Dextrose 120 ml @ 480 mls/hr TODAY@1100 IV 08/01/16 11:00 08/01/16 11:14 DC 08/01/16 11:32 480 MLS/HR Pantoprazole Sodium/Dextrose (Protonix Inj/D5 100ml) 100 ml @ 20 mls/hr Q5H IV 08/01/16 11:15 08/01/16 16:13 08/01/16 11:33 20 MLS/HR Alprazolam (Xanax Tab) 0.5 mg Q8 PRN PO 08/01/16 11:15 08/31/16 11:14 08/01/16 12:53 0.5 MG ECG Indication: other (lethargy) Rate (beats per minute): 117 Rhythm: sinus tachycardia Findings: no acute ischemic change, no ectopy ED Course 0932: Past medical records reviewed. The patient was evaluated in room B5. A complete history and physical examination was performed. 0940: Ordered NSS 500 ml @ 999 mls/hr IV. 1040: I reassessed the patient. She is a level 5 DNR but agreed to blood transfusion. She signed the consent for blood. The department has attempted to call the patient's 4 times at this point without luck. Ordered Pantoprazole Sodium 40 mg/Syringe, 10 ml @ 5 mls/min IV, Pantoprazole Sodium 1 ea IV. 1047: I discussed the case with Dr. Joseph - Critical Care. She recommended speaking with the hospitalist. 1052: I discussed the case with Dr. Kenney - [facility]. The patient will be evaluated for further management. Medical Decision Differential diagnosis: Etiologies such as metabolic, infection, hypoglycemia, electrolyte abnormalities , cardiac sources, intracerebral event, toxicologic, neurologic, as well as others were entertained. This is a 76-year-old female who presents emergency department complaining of weakness. The patient was found to have a hemoglobin of 6 today therefore sent into the emergency department. She is heme positive on exam. At first the patient poured that she did not want any blood products however on reexamination the patient had decided that she does want blood. She willingly signed consent and it was placed on the chart. The patient was started on Protonix bolus and drip given normal saline bolus. Patient and hospitalist service were in agreement with treatment plan. Consults Time Called: 1040 Consulting Physician: Dr. Joseph - Critical Care Returned Call: 1048 I discussed the case with her. She recommended speaking with the hospitalist. Additional Consults: Time Called: 1048 Consulted Physician: Dr. Kenney - [facility] Hospital[facility] Returned Call: 1050 Additional Comments: I discussed the case with him. The patient will be evaluated for further management. Impression Primary Impression: GI bleed Additional Impression: Anemia Critical Care I have personally spent greater than 90 minutes of critical care time in the direct management of this patient. This includes bedside care, interpretation of diagnostic studies, and testing, discussion with consultants, patient, and family members, and other required patient management activities. This 90 minutes is in excess of all separately billable procedures. Scribe Attestation The scribe's documentation has been prepared under my direction and personally reviewed by me in its entirety. I confirm that the note above accurately reflects all work, treatment, procedures, and medical decision making performed by me. Departure Information Dispostion Being Evaluated By Hospitalist Referrals Pinky Aiken C.R.N.P (PCP) Patient Instructions My [facility] Problem Qualifiers Primary Impression: GI bleed GI bleed type/associated pathology: unspecified gastrointestinal hemorrhage type Qualified Codes: K92.2 - Gastrointestinal hemorrhage, unspecified Additional Impression: Anemia Anemia type: unspecified type Qualified Codes: D64.9 - Anemia, unspecified
[2016-08-01 10:31] LABS: INR 1.4 (0.9-1.1); PARTIAL THROMBOPLASTIN RATIO 0.9; PROTHROMBIN TIME (PATIENT) 14.7 SECONDS (9.0-12.0)
[2016-08-01 10:32] LABS: HEMATOCRIT 20.7 % (37-47); MEAN CELL VOLUME 81.2 fL (80-100); MEAN CORPUSCULAR HEMOGLOBIN 25.5 pg (25-34); MEAN CORPUSCULAR HGB CONC 31.4 g/dl (32-36); MEAN PLATELET VOLUME 9.9 fL (7.4-10.4); PLATELET COUNT 302 K/uL (130-400); RED BLOOD COUNT 2.55 M/uL (4.2-5.4); WHITE BLOOD COUNT 18.78 K/uL (4.8-10.8)
[2016-08-01] MEDS ORDERED: PANTOprazole INJ 40 MG in SYRINGE 0 ML IV STA (10:41)
[2016-08-01 10:43] LABS: ANISOCYTOSIS PRESENT; BASO % 0.1 %; BASO ABS # 0.01 K/uL (0-0.2); COMPLETE YES; IG% 0.6 %; LYMPH % 11.4 %; LYMPH ABS # 2.14 K/uL (1.2-3.4); MONO % 4.8 %; NEUT % 83.1 %
[2016-08-01 10:53] LABS: ISTAT CREATININE 0.8 mg/dl (0.6-1.3); ISTAT HEMOGLOBIN 6.8 g/dl (12.0-16.0); ISTAT IONIZED CALCIUM 1.1 mmol/l (1.12-1.32)
[2016-08-01 10:54] LABS: BUN/CREATININE RATIO 70.8 (10-20); CALCIUM 8.5 mg/dl (8.5-10.1); CREATININE 0.82 mg/dl (0.60-1.20); POTASSIUM 3.8 mmol/L (3.5-5.1)
[2016-08-01] MEDS ORDERED: PANTOprazole INJ 80 MG in DEXTROSE 5% 100ML IV SCH (11:00)
[2016-08-01] MEDS: IPRATROPIUM BROMIDE/ALBUTEROL respimat INH INH SCH ×3 (11:15→21:27)
[2016-08-01] MEDS ORDERED: MECLIZINE HCL 25 MG TAB PO PRN (11:15)
[2016-08-01] MEDS ORDERED: ACETAMINOPHEN 325 MG TAB PO PRN (11:15)
[2016-08-01] MEDS ORDERED: PANTOprazole INJ 40 MG in DEXTROSE 5% 100ML IV SCH (11:15)
[2016-08-01] MEDS ORDERED: ONDANSETRON INJ 2 MG/ML 2 ML VIAL IV PRN (11:15)
--- NOTE | 2016-08-01 11:40 | History and Physical ---
History & Physical Date & Time of Service: Aug 01, 2016 at 11:22 Chief Complaint: Lethargy Primary Care Physician: Juany Page History of Present Illness Source: patient, hospital records 76 yo female who was just discharged from [facility] on 07/31 after extended stay for TIA work up, COPD exacerbation and diastolic HF exacerbation, was sent to [facility] for rehabilitation and this morning she was extremely lethargic and had melanotic stools. She did not have any melena while admitted and her last Hb was stable at 10.3 three days ago. The patient is a poor historian and cannot give me any details of why she returned except for the fact that she is fatigued and feels short of breath at rest. Reviewing yesterday's discharge summary, she seemed to be in stable condition and her plans were to complete rehab and then return home. It was noted by both physicians and case management that recommendations would be for SNF shelter but the patient and refused. Here in the ED she was tachycardic and the BP was fluctuating between 80's systolic and 140's systolic. She was grossly heme positive on rectal exam. The patient denies epigastric pain. She does have a history of PUD. Of note, she was treated with steroids for COPD exacerbation on last admission and she was also started on aspirin for TIA. She has been taking both a PPI and Zantac for PUD treatment. Initially she refused blood when her Hb was found to be 6.8 but then she accepted the need for transfusion. Past Medical/Surgical History COPD Diastolic HF, chronic (EF 70%) Medical Problems: (1) Age related osteoporosis Status: Chronic (2) Anemia Status: Chronic (3) Anxiety disorder Status: Chronic (4) CHF (congestive heart failure) Status: Chronic (5) Compression fracture Status: Chronic (6) Depression Status: Chronic (7) Fall Status: Resolved (8) Fall at home Status: Resolved (9) Gastric ulcer Status: Chronic (10) Glaucoma Status: Chronic (11) Hypertension Status: Chronic (12) Hypertension Nos Status: Chronic (13) Osteoporosis Status: Chronic (14) Pancreatitis Status: Chronic (15) Parkinsonism Status: Chronic (16) Peptic ulcer disease Status: Chronic (17) Respiratory failure Status: Chronic (18) Right hip pain Status: Resolved (19) Stomach ulcer Status: Chronic Surgical Problems: (1) Hx of appendectomy Status: Resolved (2) S/P colonoscopy Status: Resolved (3) S/P endoscopy Status: Resolved Family History Cancer (unknown type) MOTHER Heart disease FATHER Social History Smoking Status: Never Smoker Drug Use: none Marital Status: Housing status: lives with significant other Occupational Status: retired Immunizations History of Influenza Vaccine: No History of Tetanus Vaccine?: Yes Tetanus Immunization Date: Oct 26, 2006 History of Pneumococcal: No History of Hepatitis B Vaccine: No Multi-Drug Resistant Organisms History of MDRO: No Allergies Coded Allergies: Oxycodone (Verified Adverse Reaction, Intermediate, NAUSEA, 08/01/16) Codeine (Verified Adverse Reaction, Mild, NAUSEA, 08/01/16) Home Medications Scheduled Aspirin (Aspirin EC Low Dose), 81 MG PO QAM Bisacodyl (Bisacodyl EC), 5 MG PO DAILY Calcium Carbonate-Vitamin D W/ (Caltrate 600 Plus), 1 TAB PO BID Cholecalciferol (Vitamin D3), 1 CAP PO DAILY Docusate Sodium (Docusate Sodium), 100 MG PO BID Escitalopram Oxalate (Escitalopram Oxalate), 10 MG PO DAILY Fluticasone Prop/Salmeterol (Advair Diskus 250/50 60 Dose), 1 PUFF INH BID Ipratropium [place] (Ipratropium [place]), 0.5 MG INH Q6R Ipratropium-Albuterol (Combivent Respimat), 1 PUFF INH Q6H Magnesium Oxide (Mag-Ox), 400 MG PO BID Megestrol Acetate (Megestrol Acetate), 400 MG PO QAM Metoprolol Succinate (Metoprolol Succinate ER), 25 MG PO DAILY Multiple Vitamin (Multivitamin), 1 TAB PO QAM Omeprazole (Prilosec), 20 MG PO DAILY Potassium Chloride Microencaps (Potassium Chloride Er), 20 MEQ PO DAILY Prednisone (Prednisone), 10 MG PO DAILY Ranitidine (Zantac), 150 MG PO DAILY Trazodone HCl (Trazodone HCl), 25 MG PO HS Scheduled PRN Acetaminophen (Tylenol), 500 MG PO Q4 PRN for Pain Alprazolam (Alprazolam), 0.5 MG PO Q8 PRN for Anxiety Meclizine HCl (Meclizine HCl), 25 MG PO Q8 PRN for Dizziness or Vertigo Review of Systems Constitutional: + weakness, + weight loss (for several months), No chills, No fever, No sweats Eyes: No diplopia, No discharge, No eye pain, No problem reported, No redness, No worsening of vision ENT: No dental problems, No hearing loss, No nasal symptoms, No problem reported, No sore throat, No tinnitus, No trouble swallowing, No unusual epistaxis Respiratory: + dyspnea at rest, + dyspnea on exertion, + shortness of breath, No cough, No hemoptysis, No sputum, No wheezing Cardiovascular: No PND, No chest pain, No claudication, No edema, No orthopnea , No palpitations Abdomen: + GI bleeding (melena), No constipation, No diarrhea, No nausea, No pain, No problem reported, No vomiting Musculoskeletal: + joint pain (diffuse, chronic), No calf pain, No muscle pain , No problem reported, No swelling Genitourinary - Female: + problem reported (asher in place) Neurologic: + balance problems, + memory loss, + weakness, No numbness/tingling , No paralysis, No vertigo Psychiatric: + anxiety, No anhedonism, No depression symptoms Endocrine: + fatigue, No excessive thirst, No excessive urination, No problem reported Hematologic / Lymphatic: No abnormal bleeding/bruising, No clotting problems, No night sweats, No problem reported, No swollen lymph nodes Integumentary: No bleeding, No color change, No itch, No new/changing skin lesions, No problem reported, No rash Allergic / Immunologic: No environmental allergies, No food allergies, No frequent infections, No hives, No pet sensitivities, No poor healing, No problem reported, No prolonged convalescence, No seasonal allergies Physical Exam Vital Signs Date Time Temp Pulse Resp B/P Pulse Ox O2 Delivery O2 Flow Rate FiO2 08/01/16 10:42 115 24 137/109 97 Nasal Cannula 3.0 08/01/16 10:30 118 16 82/63 96 Room Air 08/01/16 10:06 120 08/01/16 09:47 99 Nasal Cannula 4.0 08/01/16 09:47 87 Room Air 08/01/16 09:35 36.8 125 20 91/54 87 Room Air General Appearance: no apparent distress, + thin Head: normocephalic, atraumatic Eyes: normal inspection, EOMI, sclerae normal ENT: normal ENT inspection, hearing grossly normal, pharynx normal Neck: supple, no adenopathy, no JVD, trachea midline Respiratory/Chest: chest non-tender, no respiratory distress, no accessory muscle use, + rales (bibasilar) Cardiovascular: no edema, no gallop, no JVD, no murmur, normal peripheral pulses, + tachycardia (regular) Abdomen/GI: normal bowel sounds, non tender, soft, no organomegaly Back: normal inspection, no CVA tenderness, no muscle spasm, normal range of motion Extremities/Musculoskelatal: normal inspection, no calf tenderness, normal capillary refill, no pedal edema, normal range of motion, pelvis stable Neurologic/Psych: 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 II-XII nml as tested, alert, normal mood/affect, normal reflexes, oriented x 3, + motor weakness (generalized) Skin: warm/dry, no rash, + pallor Lymphatic: no adenopathy Diagnostics Laboratory Results Results Past 24 Hours Test 08/01/16 09:59 08/01/16 10:06 Range/Units White Blood Count 18.78 4.8-10.8 K/uL Red Blood Count 2.55 4.2-5.4 M/uL Hemoglobin 6.5 12.0-16.0 g/dL Hematocrit 20.7 37-47 % Mean Corpuscular Volume 81.2 80-100 fL Mean Corpuscular Hemoglobin 25.5 25-34 pg Mean Corpuscular Hemoglobin Concent 31.4 32-36 g/dl Platelet Count 302 130-400 K/uL Mean Platelet Volume 9.9 7.4-10.4 fL Neutrophils (%) (Auto) 83.1 % Lymphocytes (%) (Auto) 11.4 % Monocytes (%) (Auto) 4.8 % Eosinophils (%) (Auto) 0.0 % Basophils (%) (Auto) 0.1 % Neutrophils # (Auto) 15.61 1.4-6.5 K/uL Lymphocytes # (Auto) 2.14 1.2-3.4 K/uL Monocytes # (Auto) 0.90 0.11-0.59 K/uL Eosinophils # (Auto) 0.00 0-0.5 K/uL Basophils # (Auto) 0.01 0-0.2 K/uL RDW Standard Deviation 56.2 36.4-46.3 fL RDW Coefficient of Variation 19.1 11.5-14.5 % Immature Granulocyte % (Auto) 0.6 % Immature Granulocyte # (Auto) 0.12 0.00-0.02 K/uL Anisocytosis PRESENT Prothrombin Time 14.7 9.0-12.0 SECONDS Prothromb Time International Ratio 1.4 0.9-1.1 Activated Partial Thromboplast Time 23.4 21.0-31.0 SECONDS Partial Thromboplastin Ratio 0.9 Sodium Level 145 136-145 mmol/L Potassium Level 3.8 3.5-5.1 mmol/L Chloride Level 105 98-107 mmol/L Carbon Dioxide Level 33 21-32 mmol/L Anion Gap 7.0 17.0 16-25 mmol/L Blood Urea Nitrogen 58 7-18 mg/dl Creatinine 0.82 0.60-1.20 mg/dl Est Creatinine Clear Calc Drug Dose 45.5 ml/min Estimated GFR () 81.1 Estimated GFR (Non- 70.0 BUN/Creatinine Ratio 70.8 10-20 Random Glucose 130 70-99 mg/dl Calcium Level 8.5 8.5-10.1 mg/dl Total Bilirubin 0.5 0.2-1 mg/dl Direct Bilirubin 0.2 0-0.2 mg/dl Aspartate Amino Transf (AST/SGOT) 9 15-37 U/L Alanine Aminotransferase (ALT/SGPT) 12 12-78 U/L Alkaline Phosphatase 50 45-117 U/L Total Protein 5.5 6.4-8.2 gm/dl Albumin 2.7 3.4-5.0 gm/dl Lipase 157 73-393 U/L Bedside Hemoglobin 6.8 12.0-16.0 g/dl Bedside Hematocrit 20 37-47 % Bedside Sodium 142 135-144 mEq/L Bedside Potassium 3.8 3.3-5.0 mEq/L Bedside Chloride 100 101-112 mEq/L Bedside Total CO2 30 24-31 mEq/l Bedside Blood Urea Nitrogen 52 7-18 mg/dl Bedside Creatinine 0.8 0.6-1.3 mg/dl Bedside Glucose (other) 129 70-99 mg/dl Bedside Ionized Calcium (Jc) 1.10 1.12-1.32 mmol/l Diagnostic Radiology CXR pending EKG sinus tachycardia Impression Assessment and Plan 76 yo female with ongoing issues with diastolic heart failure, COPD, weakness, weight loss who presents in less than 24 hours with new onset melena and blood loss anemia - Acute blood loss anemia: no evidence of hypovolemic shock, Hb 6.8 compared to 10.3 only three days ago, grossly melanotic stools transfuse two units now, repeat H/H, give Lasix 40mg IV in between units, should have a second peripheral site placed type and cross for 2 more units to be available check H/H in the AM - GI bleed, suspected upper from PUD: Protonix gtt, clear liquid diet, GI consult could have been induced by recent steroid use and aspirin, both of these held - COPD: no evidence of wheezing on exam, continue maintenance inhalers - Chronic diastolic HF: given Lasix IV last admission, echo showed EF 70% will give Lasix IV in between PRBC transfusions continue metoprolol - Recent TIA: hold aspirin due to bleeding, resume once bleeding controlled return to rehab once medically stable full work up last admission with MRI brain that did not show acute stroke - Anxiety: Ativan at 0.5mg TID PRN (this was reduced during last admission from 1mg TID) DVT prophylaxis: SCD only due to bleeding DNR: confirmed with patient, stated "just let me go if anything happens" Level of Care Telemetry Advanced Directives Existing Advance Directive: Yes Existing Living Will: Yes Resuscitation Status DO NOT RESUSCITATE VTE Prophylaxis VTE Risk Assessment Done? Y/N: Yes Risk Level: Moderate Given or contraindicated: SCD's Additional Copies To [facility]; Pinky Aiken, C.R.N.P
--- NOTE | 2016-08-01 11:48 | DIAGNOSTIC IMAGING REPORT ---
SINGLE VIEW CHEST CLINICAL HISTORY: Dyspnea. FINDINGS: An AP, portable, upright chest radiograph is compared to study dated 07/23/2016 and correlated with chest CT dated 03/16/2015. The examination is degraded by portable technique and patient rotation. The cardiomediastinal silhouette is unremarkable. There is atherosclerotic calcification of the thoracic aorta. Advanced emphysema and chronic interstitial thickening/nodularity are similar to previous. There is extensive biapical scarring. No airspace consolidation is identified typical for pneumonia. There is no large pleural effusion or pneumothorax. The skeletal structures are osteopenic. The bony thorax is grossly intact. Degenerative change and scoliosis are noted in the thoracic spine. IMPRESSION: 1. Advanced emphysema with no acute cardiopulmonary abnormality. 2. Airspace opacities at the right lung base seen on 07/23/2016 have resolved. Electronically signed by: Dick Vargas M.D. 08/01/2016 11:46 AM Dictated Date/Time: 08/01/2016 11:45 AM
[2016-08-01] MEDS: ALPRAZOLAM 0.5 MG TAB PO PRN (12:53)
[2016-08-01] MEDS: PANTOprazole INJ 40 MG in DEXTROSE 5% 100ML IV SCH ×2 (16:23→21:26)
[2016-08-01] MEDS ORDERED: FUROSEMIDE INJ 40 MG in SYRINGE 0 ML IV SCH (17:00)
[2016-08-01 17:27] LABS: URINE APPEARANCE CLEAR (CLEAR); URINE BILIRUBIN NEG (NEG); URINE COLOR YELLOW; URINE NITRITE NEG (NEG); URINE PH 7.5 (4.5-7.5); URINE SPECIFIC GRAVITY 1.007 (1.000-1.030); UROBILINOGEN NEG (NEG)
[2016-08-01 17:33] LABS: MANUAL MICROSCOPIC REQUIRED? NO; REVIEW REQ? NO
--- NOTE | 2016-08-01 18:00 | GASTROINTESTINAL CONSULTATION ---
DATE OF CONSULTATION: 08/01/2016 CHIEF COMPLAINT: Melena and acute blood loss anemia. REQUESTING PHYSICIAN: Dr. Robert Kenney. HISTORY OF PRESENT ILLNESS: Mrs. Lazo is a 76-year-old white female who was discharged yesterday from the hospital for evaluating and assessment of potential neurologic event (TIA/CVA). She was discharged to [facility]. The patient had developed melena and was found to have hemoglobin upon arrival to the Emergency Room of 6.5. White count was also elevated at 18.7. The patient initially refused blood transfusions, but at the present time she is just beginning her transfusion and was agreeable to receive. The patient reports that she may have had a history of peptic ulcer disease with bleeding in the past although was unable to give a clear description of when this occurred or its nature. PAST MEDICAL HISTORY: Significant for COPD, osteoporosis, anemia, anxiety disorder, congestive heart failure, compressive fracture, depression, gastric ulcer by EMR, hypertension, pancreatitis, peptic ulcer disease. PAST SURGICAL HISTORY: The patient had an appendectomy and has had prior endoscopic exams. ALLERGIES: TO OXYCODONE AND CODEINE, WHICH PRODUCES NAUSEA. HOME MEDICATIONS: Upon discharge yesterday was aspirin, Bisacodyl, Colace, Lexapro, Fluticasone, Atrovent, megestrol acetate, omeprazole, prednisone 10 mg daily, ranitidine 150 mg daily, trazodone 25 mg at bedtime. FAMILY HISTORY: Noncontributory. REVIEW OF SYSTEMS: The patient's review of systems is otherwise noncontributory based on 14-point exam except for mentioned above. The patient denies any hematemesis or coffee-ground emesis at this time. PHYSICAL EXAMINATION: VITAL SIGNS: On admission afebrile 36.8, blood pressure 91/54, heart rate 125, respirations 20, 87% on room air (COPD history). GENERAL: The patient is awake, alert and oriented to time and place. NEUROLOGIC: There are no lateralizing neurologic defects noted. HEENT: The oral mucosa is slightly parched. HEART: Normal S1, S2. LUNGS: Diminished breath sounds bilaterally without wheezes or rhonchi. ABDOMEN: Soft, mildly tympanitic without rebound or guarding. No abdominal masses or bruits appreciated. I do not appreciate hepatosplenomegaly. There is no evidence of ascites or shifting dullness. EXTREMITIES: Without clubbing, cyanosis or edema. RECTAL: Exam is deferred at this time. DATA: Additional laboratory studies show a white count as described above 18.7, platelets are 302,000. INR 1.4. Potassium 3.8, BUN and creatinine are 58 and 0.8. Total bilirubin 0.5, direct 0.2. AST 9, ALT 12, alkaline phosphatase 50, lipase 157. IMPRESSION: The patient with evidence of acute blood loss with anemia. This is with melena with an elevated BUN. The patient initially refused blood transfusions, but was willing to receive it now and this has started. The patient had a tray but did not eat or drink anything since admission and I offered an upper endoscopy to assess this. The patient refused this. I asked the patient several times and informed her that the possibility of a life threatening bleed may be present and that its diagnosis and possible treatment maybe life saving. I spoke to Dr. Kenney about the patient's refusal of her upper endoscopy. At the present time she should continue her blood transfusions, consider proton-pump inhibitor therapy. There is no evidence of a chronic liver disorder based on laboratory studies (overall normal platelet count, white count, INR and liver tests and no history of alcohol intake). The patient does not use tobacco products. If the patient does change her mind and desires EGD, we will keep patient n.p.o. in the interim and can reconsider at anytime especially if bleeding becomes urgent. All questions answered. We will follow with you. Please check serial hemoglobin every 12 hours for the next 24-48 hours, PPI drip and correct electrolytes if abnormal. Thank you for allowing me to participate in this patient's care. ADDENDUM At 3:15 p.m. I was contacted by the floor nurse, as Dr. Kenney had spoken to the patient in the interim and convinced her that an upper endoscopy would be helpful and warranted and she was agreeable. However, the family apparently came in, was concerned that she was not eating and decided to give her coffee with milk as well as Jell-O. The milk now requires a 6 hour fast. We will continue with observation of her anemia, correct if possible, n.p.o. status, blood products and consider upper endoscopy tomorrow or earlier if the bleeding becomes emergent. All questions answered. MTDD
[2016-08-01] MEDS: IPRATROPIUM BROMIDE NEB SOLN 0.02% 2.5 ML VIAL INH SCH (19:58)
[2016-08-01] MEDS: FLUTICASONE/SALMETEROL 250/50 (ADVAIR) 14 PUFF/1 INHALER INH SCH (21:27)
[2016-08-02] VITALS (16 sets, daily range): BP systolic 82–156; BP diastolic 54–97; PULSE 101–203; TEMP 36.3–36.7; O2SAT 93–100
[2016-08-02] MEDS: IPRATROPIUM BROMIDE NEB SOLN 0.02% 2.5 ML VIAL INH SCH ×4 (01:49→20:26)
[2016-08-02] MEDS: PANTOprazole INJ 40 MG in DEXTROSE 5% 100ML IV SCH ×5 (02:25→22:39)
[2016-08-02] MEDS: IPRATROPIUM BROMIDE/ALBUTEROL respimat INH INH SCH ×3 (05:23→17:05)
[2016-08-02 05:49] LABS: BASO % 0.1 %; BASO ABS # 0.02 K/uL (0-0.2); COMPLETE YES; EOS % 0.1 %; HEMATOCRIT 31.3 % (37-47); IG% 0.7 %; LYMPH % 11.1 %; LYMPH ABS # 2.13 K/uL (1.2-3.4); MEAN CELL VOLUME 81.3 fL (80-100); MEAN CORPUSCULAR HEMOGLOBIN 26.8 pg (25-34); MEAN CORPUSCULAR HGB CONC 32.9 g/dl (32-36); MEAN PLATELET VOLUME 9.5 fL (7.4-10.4); MONO % 5.6 %; NEUT % 82.4 %; PLATELET COUNT 252 K/uL (130-400); RED BLOOD COUNT 3.85 M/uL (4.2-5.4); WHITE BLOOD COUNT 19.12 K/uL (4.8-10.8)
[2016-08-02 06:32] LABS: BUN/CREATININE RATIO 43.7 (10-20); CALCIUM 7.8 mg/dl (8.5-10.1); CREATININE 0.92 mg/dl (0.60-1.20); MAGNESIUM 2.5 mg/dl (1.8-2.4); POTASSIUM 3.4 mmol/L (3.5-5.1)
[2016-08-02] MEDS ORDERED: HydrALAZINE HCL 20 MG/ML VIAL IV. PRN (08:00)
[2016-08-02] MEDS: ESCITALOPRAM OXALATE 10 MG TAB PO SCH (08:41)
[2016-08-02] MEDS: FLUTICASONE/SALMETEROL 250/50 (ADVAIR) 14 PUFF/1 INHALER INH SCH ×2 (08:41→21:34)
[2016-08-02] MEDS: MEGESTROL ACETATE SUSP 400 MG/10 ML UDC PO SCH (08:42)
[2016-08-02] MEDS: METOPROLOL SUCC 25MG EXT REL TAB PO SCH (08:42)
[2016-08-02] MEDS ORDERED: LORAZEPAM INJ 0.5 MG in SYRINGE 0.75 ML IV PRN ×2 (10:00→16:00)
[2016-08-02] MEDS ORDERED: LORAZEPAM INJ 0.5 MG in SYRINGE 0.75 ML IV ONE (10:00)
[2016-08-02 10:09] LABS: HEMATOCRIT 32.2 % (37-47)
--- NOTE | 2016-08-02 11:07 | Hospitalist Progress Note ---
Hospitalist Progress Note Date of Service Aug 02, 2016. (Leela Vale PA-C) Subjective Pt evaluation today including: conversation w/ patient, conversation w/ family , physical exam, chart review, lab review, review of studies, review of inpatient medication list Patient seen and evaluated. She was noted to have runs of SVT overnight. Patient largely rests in bed with no complaints. However this morning she appeared lethargic and made multiple statements of wanting to go home, wanting to go meet the Lord, and feeling that she was going to at bedside who says this is not her baseline. Patient appears to have a rapid decline from this admission to now which confirms. This appears that it may be mildly related to hospital delirium and anxiety. Symptoms seem to improve as she calms down. Mildly labored breathing however oxygenating adequately and vital signs are stable. Upon admission hemoglobin was 6.8 and currently is 10.4 with 2 units received overnight. Patient initially declined blood transfusion and EGD and has made continue comments about just allowing her to . Discussed this with at bedside , of the option of comfort measures only. At this time, will continue to obtain EGD. Patient may benefit from comfort measures/palliative consult. Will need to discuss with family members. Additional Comments: REVIEW OF SYSTEMS: Limited as patient appears anxious and lethargic. - She initially denied pain then reports abdominal pain. - She was calling out reporting she was short of breath is mildly labored breathing which improved with redirection and resting - She denies nausea or vomiting (Leela Vale, PETEC) Medications Current Inpatient Medications Medications (Trade) Dose Ordered Sig/[place] Route Start Time Stop Time Status Last Admin Dose Admin Acetaminophen (Tylenol Tab) 650 mg Q4H PRN PO 08/01/16 11:15 08/31/16 11:14 Ondansetron HCl (Zofran Inj) 4 mg Q6H PRN IV 08/01/16 11:15 08/31/16 11:14 Alprazolam (Xanax Tab) 0.5 mg Q8 PRN PO 08/01/16 11:15 08/31/16 11:14 08/01/16 12:53 0.5 MG Escitalopram Oxalate (Lexapro Tab) 10 mg DAILY PO 08/02/16 09:00 09/01/16 08:59 Salmeterol Xinafoate/ Fluticasone (Advair Diskus 250/50 Inh) 1 puff BID INH 08/01/16 21:00 08/31/16 20:59 08/02/16 08:41 1 PUFF Ipratropium [place] (Atrovent 0.02% 0.5MG/2.5ML Neb) 0.5 mg Q6R INH 08/01/16 15:00 08/31/16 14:59 Albuterol/ Ipratropium (Combivent Respimat Inh) 2 puffs Q6H INH 08/01/16 11:15 08/31/16 11:14 08/02/16 05:23 2 PUFFS Meclizine HCl (Antivert Tab) 25 mg Q8 PRN PO 08/01/16 11:15 08/31/16 11:14 Megestrol Acetate (Megace Susp) 400 mg QAM PO 08/02/16 09:00 09/01/16 08:59 Metoprolol Succinate 25 mg 25 mg DAILY PO 08/02/16 09:00 09/01/16 08:59 Pantoprazole Sodium/Dextrose (Protonix Inj/D5 100ml) 100 ml @ 20 mls/hr Q5H IV 08/01/16 16:30 08/31/16 16:29 08/02/16 07:13 20 MLS/HR Hydralazine HCl 10 mg 10 mg Q6 PRN IV. 08/02/16 08:00 09/01/16 07:59 08/02/16 08:46 10 MG Lorazepam/Syringe (Ativan Inj/ Syringe) 1 ml @ 0.5 mls/min TODAY@1000 PRN IV 08/02/16 10:00 08/02/16 15:00 (Leela Vale, PETEC) Objective Vital Signs Date Time Temp Pulse Resp B/P Pulse Ox O2 Delivery O2 Flow Rate FiO2 08/02/16 08:00 Nasal Cannula 3.0 08/02/16 07:16 36.4 110 20 156/90 96 Nasal Cannula 2.0 08/02/16 04:00 36.5 101 20 144/97 95 2.0 08/02/16 04:00 Nasal Cannula 2.0 08/02/16 00:00 Nasal Cannula 2.0 08/01/16 23:59 36.6 101 20 148/89 96 2.0 08/01/16 20:00 Nasal Cannula 3.0 08/01/16 19:26 36.7 102 20 132/82 94 Nasal Cannula 2.0 08/01/16 19:10 36.7 102 20 132/82 94 2.0 08/01/16 18:13 36.6 105 20 147/88 92 2.0 08/01/16 17:40 36.6 111 22 138/83 94 2.0 08/01/16 17:10 36.4 114 20 129/78 91 2.0 08/01/16 16:57 36.8 106 20 133/83 94 2.0 08/01/16 16:39 36.5 102 20 124/77 08/01/16 16:01 36.7 109 20 120/74 95 2.0 08/01/16 16:00 Nasal Cannula 3.0 08/01/16 15:00 37.1 118 20 128/75 98 3.0 08/01/16 14:33 37.2 113 20 123/80 98 3.0 08/01/16 14:00 36.5 109 18 110/69 100 08/01/16 13:47 36.3 124 20 98/72 97 3.0 08/01/16 13:14 37.0 114 20 101/63 08/01/16 12:22 118 16 131/79 97 Room Air 08/01/16 11:34 112 22 142/81 92 Nasal Cannula 3.0 08/01/16 11:20 92 Nasal Cannula 3.0 (Leela Vale, PA-C) Physical Exam Notes: PHYSICAL EXAM:: General Appearance: Chronically ill-appearing in mild distress who is lethargic and oriented to person and place HEENT: Head is normocephalic/atraumatic; Hearing grossly intact; Mucous membranes moist; Pharynx negative for exudate/lesions Neck: Supple; Trachea midline; Neg JVD; Neg lymphadenopathy Heart: mild tachycardia with no M/G/R Lungs: Mild rales at bases; Respirations mildly labored; Neg accessory muscle use Abdomen: Soft, epigastric/periumbilical tenderness, non-distended; Positive BS x 4 quadrants; Neg organomegaly Extremities: Neg cyanosis or edema Neurological: Speech clear; generalized weakness Psychiatric: Anxious appearing which calms with rest and redirection Skin: Warm Dry/Pale (Leela Vale, MARIE) Laboratory Results Last 24 Hours Test 08/01/16 17:10 08/02/16 05:31 08/02/16 10:00 Urine Color YELLOW Urine Appearance CLEAR Urine pH 7.5 Urine Specific [place] 1.007 Urine Protein NEG Urine Glucose (UA) NEG Urine Ketones NEG Urine Occult Blood NEG Urine Nitrite NEG Urine Bilirubin NEG Urine Urobilinogen NEG Urine Leukocyte Esterase NEG White Blood Count 19.12 K/uL Red Blood Count 3.85 M/uL Hemoglobin 10.3 g/dL 10.4 g/dL Hematocrit 31.3 % 32.2 % Mean Corpuscular Volume 81.3 fL Mean Corpuscular Hemoglobin 26.8 pg Mean Corpuscular Hemoglobin Concent 32.9 g/dl Platelet Count 252 K/uL Mean Platelet Volume 9.5 fL Neutrophils (%) (Auto) 82.4 % Lymphocytes (%) (Auto) 11.1 % Monocytes (%) (Auto) 5.6 % Eosinophils (%) (Auto) 0.1 % Basophils (%) (Auto) 0.1 % Neutrophils # (Auto) 15.75 K/uL Lymphocytes # (Auto) 2.13 K/uL Monocytes # (Auto) 1.08 K/uL Eosinophils # (Auto) 0.01 K/uL Basophils # (Auto) 0.02 K/uL RDW Standard Deviation 50.0 fL RDW Coefficient of Variation 17.1 % Immature Granulocyte % (Auto) 0.7 % Immature Granulocyte # (Auto) 0.13 K/uL Nucleated RBC Absolute Count (auto) 0.07 K/uL Nucleated Red Blood Cells % 0.4 % Sodium Level 146 mmol/L Potassium Level 3.4 mmol/L Chloride Level 107 mmol/L Carbon Dioxide Level 32 mmol/L Anion Gap 7.0 mmol/L Blood Urea Nitrogen 40 mg/dl Creatinine 0.92 mg/dl Est Creatinine Clear Calc Drug Dose 40.5 ml/min Estimated GFR () 70.6 Estimated GFR (Non- 60.9 BUN/Creatinine Ratio 43.7 Random Glucose 122 mg/dl Calcium Level 7.8 mg/dl Magnesium Level 2.5 mg/dl Total Bilirubin 0.8 mg/dl Direct Bilirubin 0.3 mg/dl Aspartate Amino Transf (AST/SGOT) 7 U/L Alanine Aminotransferase (ALT/SGPT) 11 U/L Alkaline Phosphatase 52 U/L Total Protein 5.7 gm/dl Albumin 2.8 gm/dl (Leela Vale PA-C) Assessment and Plan 76 yo female with ongoing issues with diastolic heart failure, COPD, weakness, weight loss who presents in less than 24 hours with new onset melena and blood loss anemia Acute Blood Loss Anemia with Melena: Hemodynamically Stable - Hemoglobin on admission 6.8 and received 2 units PRBCs on 08/01 with hemoglobin currently 10.4 - Protonix drip - GI following - reviewed recommendations - plan for EGD today COPD without Exacerbation: - Advair 1 puff BID and Combivent 2 puffs Q6H - Atrovent 0.5 mg Q6H Chronic Diastolic CHF: - Metoprolol 25 mg daily Recent TIA: Continue to hold ASA until bleeding controlled Anxiety: - Xanax 0.5 Q8H and Lexapro 10 mg daily DVT Prophylaxis: SCD Code Status: DO NOT RESUSCITATE Disposition: PT/OT evaluations - Return to [facility]? - pending continued assessment - comfort measures? will await to see if her continued comments of wanting to go home and refusing aggressive intervention is delirium versus allowing her to forgo further medical intervention Continued [facility] stay due to: multiple IV medications needed (Leela Vale PA-C) MARIELA Physician Supervision Note: I interviewed and examined the patient. Discussed with Leela Vale PAC and agree with findings and plan as documented in the note. Any exceptions or clarifications are listed here: None Pt is anxious and short of breath, did receive prbc and for upper endoscopy 08/02 vitals tachycardic and tachypneic car is reg lungs clear, no wheezes question if tachypnea is anxiety or anemia acute gi bleed, support hemodynamics, iv Protonix, endoscopy to define source of bleeding previous CVA will need to hold asa copd despite tachypnea no wheezing or prolonged expiratory time, continue inhalers depression use lexapro PT/OT evaluation Documented By: Pablito Briggs (Pablito Briggs M.D.) (Pablito Briggs M.D.)
--- NOTE | 2016-08-02 13:15 | History & Physical Bridge Note ---
H&P Re-Evaluation Bridge Note: I have examined the patient, reviewed the History & Physical and in the interval since the performance of the History & Physical I have noted the following changes of clinical significance: No changes noted EGD for today for acute GI bleeding/melena consent obtained from patient/spouse yuridia
--- NOTE | 2016-08-02 13:23 | GI REPORT ---
Procedure Date: 08/02/2016 1:06 PM Procedure: Upper GI endoscopy Indications: Melena Medicines: Propofol per Anesthesia Complications: No immediate complications. Estimated blood loss: Minimal. Estimated Blood Loss: Estimated blood loss was minimal. Procedure: Pre-Anesthesia Assessment: - Prior to the procedure, a History and Physical was performed, and patient medications and allergies were reviewed. The patient's tolerance of previous anesthesia was also reviewed. The risks and benefits of the procedure and the sedation options and risks were discussed with the patient. All questions were answered, and informed consent was obtained. Prior Anticoagulants: The patient has taken no previous anticoagulant or antiplatelet agents. ASA Grade Assessment: IV - A patient with severe systemic disease that is a constant threat to life. After reviewing the risks and benefits, the patient was deemed in satisfactory condition to undergo the procedure. After obtaining informed consent, the endoscope was passed under direct vision. Throughout the procedure, the patient's blood pressure, pulse, and oxygen saturations were monitored continuously. The scope was introduced through the mouth, and advanced to the second part of duodenum. The upper GI endoscopy was accomplished without difficulty. The patient tolerated the procedure well. Findings: The examined esophagus was normal. Three non-bleeding cratered gastric ulcers with no stigmata of bleeding were found in the gastric antrum. The largest lesion was 25 mm in largest dimension. Biopsies were taken with a cold forceps for histology. Biopsies were taken with a cold forceps for histology. Verification of patient identification for the specimen was done by the physician and gas plant technician using the patient's name and medical record number. The examined duodenum was normal. The cardia and gastric fundus were normal on retroflexion. Impression: - Normal esophagus. - Non-bleeding gastric ulcers with no stigmata of bleeding. Biopsied. - Normal examined duodenum. Recommendation: - Discharge patient to home (ambulatory). - Patient has a contact number available for emergencies. The signs and symptoms of potential delayed complications were discussed with the patient. Return to normal activities tomorrow. Written discharge instructions were provided to the patient. - Clear liquid diet. - Use a proton pump inhibitor PO BID. - Await pathology results. MD Meliton Soriano MD 08/02/2016 1:22:36 PM This report has been signed electronically. Note Initiated On: 08/02/2016 1:06 PM I attest to the content of the Intraoperative Record and orders documented therein, exceptions below
[2016-08-02] MEDS ORDERED: PROPOFOL IV EMULSION 10 MG/ML 20 ML VIAL IV ONE (13:39)
[2016-08-02] MEDS ORDERED: LIDOCAINE HCL 2% 2 ML VIAL (20MG/ML) ONE (13:39)
--- NOTE | 2016-08-02 13:54 | Anesthesiology Progress Note ---
Anesthesia Post Op Note Date & Time Aug 02, 2016 at 13:53 Vital Signs Pain Intensity: 0 Vital Signs Past 12 Hours Date Time Temp Pulse Resp B/P Pulse Ox O2 Delivery O2 Flow Rate FiO2 08/02/16 13:39 116 24 104/60 98 Nasal Cannula 4 Mask 08/02/16 13:28 114 24 91/51 100 Mask 10 08/02/16 13:26 107 24 81/48 100 Mask 10 08/02/16 13:24 107 24 78/51 100 Mask 10 08/02/16 12:23 36 115 28 96/64 96 Nasal Cannula 4 08/02/16 12:00 Nasal Cannula 3.0 08/02/16 11:20 36.3 115 20 103/71 94 Nasal Cannula 3.0 08/02/16 08:00 Nasal Cannula 3.0 08/02/16 07:16 36.4 110 20 156/90 96 Nasal Cannula 2.0 08/02/16 06:22 121 28 103/70 98 Nasal Cannula 3.0 08/02/16 04:00 36.5 101 20 144/97 95 2.0 08/02/16 04:00 Nasal Cannula 2.0 Notes Mental Status: alert / awake / arousable, participated in evaluation Pt Amnestic to Procedure: Yes Nausea / Vomiting: adequately controlled Pain: adequately controlled Airway Patency, RR, SpO2: stable & adequate BP & HR: stable & adequate Hydration State: stable & adequate Anesthetic Complications: no major complications apparent
[2016-08-02] MEDS ORDERED: LORAZEPAM 2 MG/ML 1 ML VIAL IV PRN ×2 (15:30)
[2016-08-02] MEDS ORDERED: METOPROLOL TARTRATE 1 MG/ML VIAL IV PRN (15:30)
[2016-08-02] MEDS ORDERED: SODIUM CHLORIDE 0.9% 500ML 500 ML IV SCH (15:30)
[2016-08-02] MEDS ORDERED: LORAZEPAM INJ 1 MG in SYRINGE 0.5 ML IV PRN (16:00)
[2016-08-02] MEDS ORDERED: DIGOXIN IV 250 MCG in SYRINGE 9 ML IV SCH (16:00)
[2016-08-02] MEDS: ALPRAZOLAM 0.5 MG TAB PO PRN (16:03)
[2016-08-02] MEDS: SODIUM CHLORIDE 0.9% 1000ML 1,000 ML IV SCH (16:18)
[2016-08-02] MEDS ORDERED: NURSING VERBAL MED ORDER ONE (19:00)
[2016-08-02] MEDS ORDERED: MAGNESIUM SULFATE 1GM / D5W 1 GM in PREMIXED IN D5W 100 ML IV ONE (19:15)
--- NOTE | 2016-08-02 22:44 | DIAGNOSTIC IMAGING REPORT ---
CHEST ONE VIEW PORTABLE HISTORY: hypoxia COMPARISON: Chest 08/01/2016. FINDINGS: Progressive diffuse interstitial thickening and vascular thickening consistent with pulmonary edema. Small bilateral pleural effusions have also increased in size. The heart is borderline enlarged. Biapical pleural thickening remains unchanged. No pneumothorax. Old, healed bilateral rib fractures. IMPRESSION: Progression of the mild interstitial pulmonary edema and small bilateral pleural effusions. Electronically signed by: Arash Vail M.D. 08/02/2016 10:42 PM Dictated Date/Time: 08/02/2016 10:41 PM
[2016-08-02 23:05] LABS: BUN/CREATININE RATIO 36.4 (10-20); CALCIUM 7.7 mg/dl (8.5-10.1); CREATININE 0.88 mg/dl (0.60-1.20); MAGNESIUM 2.9 mg/dl (1.8-2.4); POTASSIUM 3.3 mmol/L (3.5-5.1)
[2016-08-02] MEDS ORDERED: ALBUMIN HUMAN 25% 12.5 GM/50 ML VIAL IV STA (23:31)
[2016-08-02] MEDS ORDERED: DIGOXIN IV 250 MCG in SYRINGE 9 ML IV ONE (23:59)
[2016-08-03] VITALS (9 sets, daily range): BP systolic 80–126; BP diastolic 57–80; PULSE 98–140; TEMP 36.5–36.8; O2SAT 94–99
[2016-08-03] MEDS: POTASSIUM CHLR 10 MEQ / WTR 10 MEQ in PREMIXED WATER 100 ML IV SCH ×3 (00:14→03:08)
[2016-08-03] MEDS: SODIUM CHLORIDE 0.9% 1000ML 1,000 ML IV SCH (00:16)
[2016-08-03] MEDS: IPRATROPIUM BROMIDE/ALBUTEROL respimat INH INH SCH ×5 (00:17→21:41)
[2016-08-03] MEDS: ALPRAZOLAM 0.5 MG TAB PO PRN (01:02)
[2016-08-03] MEDS ORDERED: AMIODARONE IV BOLUS / DRIP IV STA (01:36)
[2016-08-03] MEDS ORDERED: AMIODARONE / D5W 100 ML IV STA (01:46)
[2016-08-03] MEDS ORDERED: AMIODARONE / D5W 200 ML IV SCH ×3 (02:00→09:50)
[2016-08-03] MEDS ORDERED: NURSING VERBAL MED ORDER ONE ×2 (02:15→04:00)
[2016-08-03] MEDS: IPRATROPIUM BROMIDE NEB SOLN 0.02% 2.5 ML VIAL INH SCH ×4 (02:35→21:40)
[2016-08-03] MEDS ORDERED: ALBUMIN HUMAN 25% 12.5 GM/50 ML VIAL IV STA (02:53)
[2016-08-03] MEDS: PANTOprazole INJ 40 MG in DEXTROSE 5% 100ML IV SCH ×3 (03:46→13:17)
[2016-08-03] MEDS ORDERED: ALBUMIN 25% 50 ML with FUROSEMIDE INJ 40 MG IV STA ×2 (04:38)
[2016-08-03 06:46] LABS: MEAN CELL VOLUME 87.2 fL (80-100); MEAN CORPUSCULAR HEMOGLOBIN 26.5 pg (25-34); MEAN CORPUSCULAR HGB CONC 30.4 g/dl (32-36); MEAN PLATELET VOLUME 9.7 fL (7.4-10.4); PLATELET COUNT 234 K/uL (130-400); RED BLOOD COUNT 3.21 M/uL (4.2-5.4); WHITE BLOOD COUNT 18.92 K/uL (4.8-10.8)
--- NOTE | 2016-08-03 06:54 | DIAGNOSTIC IMAGING REPORT ---
CHEST ONE VIEW PORTABLE CLINICAL HISTORY: Shortness of breath COMPARISON STUDY: 08/02/2016 FINDINGS: The cardiac images all contours remain stable. There is elevation of the interstitium consistent with congestive failure. Small pleural effusions are suspected. Bibasilar opacities are likely atelectatic.[ IMPRESSION: Stable findings. Continued radiographic evidence of congestive failure with small bilateral pleural effusions Electronically signed by: Manny Urbano M.D. 08/03/2016 6:52 AM Dictated Date/Time: 08/03/2016 6:52 AM
[2016-08-03 07:16] LABS: CALCIUM 7.9 mg/dl (8.5-10.1); CREATININE 0.83 mg/dl (0.60-1.20); POTASSIUM 3.5 mmol/L (3.5-5.1)
[2016-08-03 08:06] LABS: ALB/GLOB RATIO 1.8 (0.9-2)
[2016-08-03] MEDS: FLUTICASONE/SALMETEROL 250/50 (ADVAIR) 14 PUFF/1 INHALER INH SCH (08:15)
[2016-08-03] MEDS: MEGESTROL ACETATE SUSP 400 MG/10 ML UDC PO SCH (08:15)
[2016-08-03] MEDS: ESCITALOPRAM OXALATE 10 MG TAB PO SCH ×2 (08:15→09:00)
[2016-08-03] MEDS: METOPROLOL SUCC 25MG EXT REL TAB PO SCH ×2 (08:15→09:00)
--- NOTE | 2016-08-03 15:07 | PROGRESS NOTE ---
DATE: 08/03/2016 SUBJECTIVE: The patient is struggling to breathe at this time with agonal respirations. She is awake but poorly responsive due to her dyspnea. She did have an EGD yesterday by Dr. Villanueva, which showed 3 gastric ulcers, but no visible bleeding. She did get 2 units of blood, but her hemoglobin dropped a little bit more today, but there have been no signs of any active bleeding. Her main problem today is COPD and congestive heart failure with respiratory distress. IMPRESSION AND PLAN: The patient has gastric ulcers with some anemia but currently is struggling with her chronic obstructive pulmonary disease and congestive heart failure. No GI intervention is necessary at this time and the patient is a do not resuscitate.
--- NOTE | 2016-08-03 15:10 | Progress Note ---
Subjective Date of Service: Aug 03, 2016. Subjective pt remains miserable, states she does not want to be treated just left comfortable, did have afib overnight and eventually converted to sinus tach, is tachypneic likely based on COPD and significance of illness Problem List Medical Problems: (1) Acute CVA (cerebrovascular accident) Status: Acute (2) Anemia Status: Chronic (3) Anemia Status: Acute (4) Cachexia Status: Acute (5) Confusion Status: Acute (6) Dehydration Status: Acute (7) Dehydration Status: Acute (8) Dehydration Status: Acute (9) Fall Status: Acute (10) Generalized weakness Status: Acute (11) Generalized weakness Status: Acute (12) GI bleed Status: Acute (13) Loss of appetite Status: Acute (14) Multiple fractures of ribs of left side Status: Acute (15) Pleural effusion Status: Acute (16) Shortness of breath Status: Acute (17) Urinary tract infection Status: Acute Review of Systems Constitutional: + fatigue, + weakness Respiratory: + dyspnea on exertion, + shortness of breath Cardiac: + chest pain, No edema Abdomen: No diarrhea, No nausea, No pain, No vomiting Musculoskeletal: No joint pain, No muscle pain Neurologic: + memory loss, + weakness Psychiatric: + anhedonism, + depression symptoms Objective Vital Signs Date Time Temp Pulse Resp B/P Pulse Ox O2 Delivery O2 Flow Rate FiO2 08/03/16 12:05 36.6 105 26 107/72 94 Nasal Cannula 4.0 08/03/16 12:00 Nasal Cannula 3.0 08/03/16 08:00 36.8 98 18 116/77 94 Nasal Cannula 3.0 08/03/16 08:00 Nasal Cannula 3.0 08/03/16 07:32 36.6 140 20 102/70 Nasal Cannula 4.0 08/03/16 04:16 36.6 135 32 103/73 98 Nasal Cannula 4.0 08/03/16 04:00 99 Nasal Cannula 4.0 08/03/16 03:07 136 28 102/70 99 08/03/16 01:50 36.5 112 28 80/57 99 Room Air 4.0 08/03/16 00:17 144 08/03/16 00:01 96 Nasal Cannula 4.0 08/02/16 23:13 36.3 152 20 95/65 96 Nasal Cannula 4.0 08/02/16 20:00 96 Nasal Cannula 4.0 08/02/16 19:44 36.6 147 30 90/67 97 Nasal Cannula 4.0 08/02/16 17:59 155 34 88/64 100 Nasal Cannula 4.0 08/02/16 17:09 153 26 90/64 98 Nasal Cannula 4.0 08/02/16 16:26 141 28 85/58 08/02/16 16:17 143 08/02/16 16:00 96 Nasal Cannula 4.0 08/02/16 16:00 157 32 88/60 08/02/16 15:45 138 32 83/57 99 Nasal Cannula 4.0 08/02/16 15:35 147 28 93/62 100 Mask 4.0 08/02/16 15:18 36.7 118 22 99/97 98 Nasal Cannula 4.0 08/02/16 15:15 203 32 82/54 95 Nasal Cannula 4.0 Physical Exam General Appearance: + moderate distress, + thin Eyes: PERRL, EOMI Neck: supple, no JVD Respiratory/Chest: + respiratory distress, + decreased breath sounds, + accessory muscle use Cardiovascular: + tachycardia, + systolic murmur Abdomen: normal bowel sounds, soft Extremities: no pedal edema, no calf tenderness 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: alert, + depressed affect, + disoriented Laboratory Results Last 24 Hours Test 08/02/16 18:45 08/02/16 22:32 08/03/16 06:32 Hemoglobin 9.8 g/dL 8.5 g/dL Hematocrit 30.0 % 28.0 % Sodium Level 145 mmol/L 139 mmol/L Potassium Level 3.3 mmol/L 3.5 mmol/L Chloride Level 108 mmol/L 106 mmol/L Carbon Dioxide Level 29 mmol/L 24 mmol/L Anion Gap 8.0 mmol/L 9.0 mmol/L Blood Urea Nitrogen 32 mg/dl 28 mg/dl Creatinine 0.88 mg/dl 0.83 mg/dl Est Creatinine Clear Calc Drug Dose 44.6 ml/min 45.6 ml/min Estimated GFR () 74.5 79.9 Estimated GFR (Non- 64.3 69.0 BUN/Creatinine Ratio 36.4 34.0 Random Glucose 121 mg/dl 170 mg/dl Osmolality 298 mOsm/kg Calcium Level 7.7 mg/dl 7.9 mg/dl Magnesium Level 2.9 mg/dl Albumin 3.5 gm/dl 4.1 gm/dl White Blood Count 18.92 K/uL Red Blood Count 3.21 M/uL Mean Corpuscular Volume 87.2 fL Mean Corpuscular Hemoglobin 26.5 pg Mean Corpuscular Hemoglobin Concent 30.4 g/dl RDW Standard Deviation 55.8 fL RDW Coefficient of Variation 18.0 % Platelet Count 234 K/uL Mean Platelet Volume 9.7 fL Total Bilirubin 1.4 mg/dl Aspartate Amino Transf (AST/SGOT) 21 U/L Alanine Aminotransferase (ALT/SGPT) 16 U/L Alkaline Phosphatase 44 U/L Total Protein 6.4 gm/dl Globulin 2.3 gm/dl Albumin/Globulin Ratio 1.8 Assessment and Plan 76 yo female with ongoing issues with diastolic heart failure, COPD, weakness, weight loss who presents in less than 24 hours with new onset melena and blood loss anemia, found to have afib rvr, and although converted to nsr this am remains very short of breath, discussion with family will likely move to comfort measures will transition to comfort care, stop all meds per family and palliative care and initiate symptom control Acute Blood Loss Anemia with Melena: received 2 units PRBCs on 08/01, egd shows ulcers COPD without Exacerbation: - Advair 1 puff BID and Combivent 2 puffs Q6H - Atrovent 0.5 mg Q6H Chronic Diastolic CHF: - Metoprolol 25 mg daily Recent TIA: hold ASA DVT Prophylaxis: SCD Code Status: DO NOT RESUSCITATE Moving to comfort care is expected in a short duration Documented By: Pablito Briggs (Pablito Briggs M.D.) Continued [facility] stay due to: multiple IV medications needed
[2016-08-03] MEDS ORDERED: MoRPHine SULFATE 4 MG/ML 1 ML CARP\\VIAL IV PRN (15:15)
[2016-08-03] MEDS ORDERED: MoRPHine SULFATE 2 MG/ML CARP IV PRN (15:15)
[2016-08-03] MEDS ORDERED: ATROPINE SULFATE 1% OP SOLN 5 ML BTL PO PRN (15:15)
[2016-08-03] MEDS ORDERED: LORAZEPAM 2 MG/ML 1 ML VIAL IV PRN ×2 (15:30)
[2016-08-03] MEDS ORDERED: LORAZEPAM INJ 1 MG in SYRINGE 0.5 ML IV PRN (15:45)
--- NOTE | 2016-08-03 15:53 | Palliative Care Consultation ---
Consultation Date of Consultation: Aug 03, 2016. Requesting Physician: Dr. Briggs Attending Physician: Dr. Briggs Reason for Consultation: Goals of care History of Present Illness This 76 year old female patient presented to the ED two days ago from [facility] with c/o melena and lethargy. Patient was grossly heme positive in ED, hemoglobin 6.8, and has received blood transfusions. She was just discharged from [facility] on 07/31 after an extended stay for TIA workup, COPD and CHF exacerbation. Yesterday, she underwent EGD, only non-bleeding ulcers found. Unfortunately, she converted to atrial fibrillation with RVR and was started on amiodarone gtt. Respiratory status has continued to worsen despite treatment, CXR shows congestive failure and pleural effusions. Patient is continuously saying she wants to and does not want any more medical treatment. Palliative care consulted. I spoke with the patient in room 239-1. She is very short of breath at rest, spo2 noted to be 94% on nasal cannula. She is using accessory muscles. Stated, "I can't breathe." She was not able to participate in much conversation, did say her name and she was in the hospital. She stated she just wants to be comfortable. I asked if she'd be okay stopping all medications unrelated to comfort and she nodded yes. She gave me permission to call her . I spoke with Gokul Lazo over the phone. He stated "She's just given up. We know she doesn't want to do this any more." Gokul said he wants what his wants, which is to be just be made comfortable. He has had a chance to speak with his children as well who both agree that if their mother wants to stop treatment, they are okay with that as well. Gokul made the decision to make patient comfort measures only. Past Medical/Surgical History Medical History: Age related osteoporosis Anemia Anxiety disorder CHF (congestive heart failure) Compression fracture Depression Fall Gastric ulcer Glaucoma Hypertension Hypertension Nos Osteoporosis Pancreatitis Parkinsonism Peptic ulcer disease Respiratory failure Right hip pain Stomach ulcer Surgical Problems: Hx of appendectomy S/P colonoscopy S/P endoscopy Social History Smoking Status: Never Smoker History of Alcohol Use: No Drug Use: none Marital Status: Housing Status: lives with significant other Occupation Status: retired Review of Systems unable to obtain ROS due to respiratory distress. did deny pain Allergies Coded Allergies: Oxycodone (Verified Adverse Reaction, Intermediate, NAUSEA, 08/01/16) Codeine (Verified Adverse Reaction, Mild, NAUSEA, 08/01/16) Medications Current Inpatient Medications Medications (Trade) Dose Ordered Sig/Laurel Route Start Time Stop Time Status Last Admin Dose Admin Ipratropium Debary (Atrovent 0.02% 0.5MG/2.5ML Neb) 0.5 mg Q6R INH 08/01/16 15:00 08/31/16 14:59 Albuterol/ Ipratropium (Combivent Respimat Inh) 2 puffs Q6H INH 08/01/16 11:15 08/31/16 11:14 08/03/16 11:44 2 PUFFS Lorazepam (Ativan Inj) 1 mg Q4H PRN IV 08/02/16 15:30 09/01/16 15:29 08/03/16 12:10 1 MG Lorazepam 0.5 mg 0.5 mg Q4H PRN IV 08/02/16 15:30 09/01/16 15:29 08/03/16 07:56 0.5 MG Lorazepam 0.5 mg/ Syringe 1 ml @ 1 mls/min Q4H PRN IV 08/02/16 16:00 09/01/16 15:59 Lorazepam/Syringe (Ativan Inj/ Syringe) 1 ml @ 1 mls/min Q4H PRN IV 08/02/16 16:00 09/01/16 15:59 Physical Exam Date Time Temp Pulse Resp B/P Pulse Ox O2 Delivery O2 Flow Rate FiO2 08/03/16 12:05 36.6 105 26 107/72 94 Nasal Cannula 4.0 08/03/16 12:00 Nasal Cannula 3.0 08/03/16 08:00 36.8 98 18 116/77 94 Nasal Cannula 3.0 08/03/16 08:00 Nasal Cannula 3.0 08/03/16 07:32 36.6 140 20 102/70 Nasal Cannula 4.0 08/03/16 04:16 36.6 135 32 103/73 98 Nasal Cannula 4.0 08/03/16 04:00 99 Nasal Cannula 4.0 08/03/16 03:07 136 28 102/70 99 08/03/16 01:50 36.5 112 28 80/57 99 Room Air 4.0 08/03/16 00:17 144 08/03/16 00:01 96 Nasal Cannula 4.0 08/02/16 23:13 36.3 152 20 95/65 96 Nasal Cannula 4.0 08/02/16 20:00 96 Nasal Cannula 4.0 08/02/16 19:44 36.6 147 30 90/67 97 Nasal Cannula 4.0 08/02/16 17:59 155 34 88/64 100 Nasal Cannula 4.0 08/02/16 17:09 153 26 90/64 98 Nasal Cannula 4.0 08/02/16 16:26 141 28 85/58 08/02/16 16:17 143 08/02/16 16:00 96 Nasal Cannula 4.0 08/02/16 16:00 157 32 88/60 08/02/16 15:45 138 32 83/57 99 Nasal Cannula 4.0 08/02/16 15:35 147 28 93/62 100 Mask 4.0 08/02/16 15:18 36.7 118 22 99/97 98 Nasal Cannula 4.0 General Appearance: + moderate distress, + cachetic, + thin ENT: hearing grossly normal Neck: supple Respiratory: + respiratory distress, + accessory muscle use, + crackles, + pertinent finding (moist rattling in throat) Cardiovascular: regular rate, rhythm, + normal peripheral pulses Abdomen: normal bowel sounds, soft 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: alert, + pertinent finding (oriented to person and place) Laboratory Results Last 24 Hours Test 08/02/16 18:45 08/02/16 22:32 08/03/16 06:32 Hemoglobin 9.8 g/dL 8.5 g/dL Hematocrit 30.0 % 28.0 % Sodium Level 145 mmol/L 139 mmol/L Potassium Level 3.3 mmol/L 3.5 mmol/L Chloride Level 108 mmol/L 106 mmol/L Carbon Dioxide Level 29 mmol/L 24 mmol/L Anion Gap 8.0 mmol/L 9.0 mmol/L Blood Urea Nitrogen 32 mg/dl 28 mg/dl Creatinine 0.88 mg/dl 0.83 mg/dl Est Creatinine Clear Calc Drug Dose 44.6 ml/min 45.6 ml/min Estimated GFR () 74.5 79.9 Estimated GFR (Non- 64.3 69.0 BUN/Creatinine Ratio 36.4 34.0 Random Glucose 121 mg/dl 170 mg/dl Osmolality 298 mOsm/kg Calcium Level 7.7 mg/dl 7.9 mg/dl Magnesium Level 2.9 mg/dl Albumin 3.5 gm/dl 4.1 gm/dl White Blood Count 18.92 K/uL Red Blood Count 3.21 M/uL Mean Corpuscular Volume 87.2 fL Mean Corpuscular Hemoglobin 26.5 pg Mean Corpuscular Hemoglobin Concent 30.4 g/dl RDW Standard Deviation 55.8 fL RDW Coefficient of Variation 18.0 % Platelet Count 234 K/uL Mean Platelet Volume 9.7 fL Total Bilirubin 1.4 mg/dl Aspartate Amino Transf (AST/SGOT) 21 U/L Alanine Aminotransferase (ALT/SGPT) 16 U/L Alkaline Phosphatase 44 U/L Total Protein 6.4 gm/dl Globulin 2.3 gm/dl Albumin/Globulin Ratio 1.8 Assessment & Plan Palliative Performance Scale: 10 % Problem list: Shortness of breath/respiratory failure Weakness, functional decline Acute anemia COPD exacerbation CHF exacerbation Recent TIA Anxiety Goals o care (Z51.5) Palliative care recommendations: discussed with patient, patient's Gokul Lazo, and Dr. Briggs. -Comfort measures only per the patient and 's wishes -Stop IV amiodarone, PO medications and anything unrelated to comfort -Would give 1mg IV morphine now, start infusion at 1mg/hr. -Lorazepam 1mg IV Q4h PRN -Transfer out of telemetry to [facility] Thank you kindly for this consult. Please contact me with any further palliative care needs.
[2016-08-03] MEDS ORDERED: LORAZEPAM INJ 0.5 MG in SYRINGE 0.75 ML IV PRN (16:00)
[2016-08-03] MEDS: MoRPHine SULF/NSS 250MG/250ML 250 ML IV PRN ×3 (16:00→18:20)
[2016-08-03] MEDS ORDERED: SCOPOLAMINE 1.5 MG TDSY TD SCH (17:00)
[2016-08-03] MEDS: CHECK SCOPOLAMINE PATCH PLACEMENT SCH (20:00)
[2016-08-04] MEDS: IPRATROPIUM BROMIDE/ALBUTEROL respimat INH INH SCH (05:15)
[2016-08-04] MEDS: IPRATROPIUM BROMIDE NEB SOLN 0.02% 2.5 ML VIAL INH SCH (05:38)
[2016-08-04] MEDS: CHECK SCOPOLAMINE PATCH PLACEMENT SCH (07:34)
--- NOTE | 2016-08-04 12:18 | Death Summary ---
Summary of Admission Date Aug 01, 2016 at 11:20 Date & Time of Aug 04, 2016. 1150 Cause of upper gi bleed, comfort measures Hospital Course 76 yo female with ongoing issues with diastolic heart failure, COPD, weakness, weight loss who presents in less than 24 hours with new onset melena and blood loss anemia, found to have afib rvr, and although converted to nsr has remained very short of breath, discussion with family will likely move to comfort measures, morphine drip started and she eventully succumbed to her comorbid conditions, 08/04/16 at 1150 Previous in her hospital stay Acute Blood Loss Anemia with Melena: received 2 units PRBCs on 08/01, egd shows ulcers COPD without Exacerbation: Chronic Diastolic CHF: Recent TIA: Code Status: DO NOT RESUSCITATE
== END 2016-08-04 15:09 | disposition expired | DRG 378 ==
LOC: ENRESERVTM → ENRESERVDT → EDBD 09:17 → C.EDB 09:20 → C.MED 11:20 → C.2T 08-02 20:08 → C.4E 08-03 16:30
PROVIDERS: ADMIT Internal Medicine; ATTEND Internal Medicine
PROC: 0DJ08ZZ Inspection of Upper Intestinal Tract, Via Natural or Artificial Opening Endoscopic (ICD-10-PCS; principal; 2016-08-02 12:21)
DX: K27.4 Chronic or unspecified peptic ulcer, site unspecified, with hemorrhage (principal); D62 Acute posthemorrhagic anemia; I50.32 Chronic diastolic (congestive) heart failure; Z66 Do not resuscitate; M81.0 Age-related osteoporosis without current pathological fracture; Z51.5 Encounter for palliative care; F41.9 Anxiety disorder, unspecified; G20 Parkinson's disease; I10 Essential (primary) hypertension; Z79.82 Long term (current) use of aspirin; J44.9 Chronic obstructive pulmonary disease, unspecified; Z86.73 Personal history of transient ischemic attack (TIA), and cerebral infarction without residual deficits